=== PATIENT | male | born 1980 | race Caucasian/White ===

== ENCOUNTER 2025-01-27 12:38 | Outpatient (OUT) | payer BC, SELFPAY ==
--- OUTSIDE RECORDS SUMMARY | 2025-01-17 19:23 | XMS_ITS | Encounter Summary ---
Author Organization [facility] tem Address [id number] [address] [place] [address] Care Team Providers Care Die Equipment Operator Name Role Phone Tina Herrera APRN-[facility] Primary Care Provider Reason for Referral * Consultation (Routine) - Pending ReviewSpecialtyDiagnoses / ProceduresReferred By ContactReferred To ContactGastroenterology Diagnoses Chronic pancreatitis, unspecified pancreatitis type ([facility]-H[facility]) Halima Turner MD [address] [place] [address] Phone: tel: fax: [facility] Department of [address] [address] Phone: tel: fax: Referral IDStatusReasonStart DateExpiration DateVisits RequestedVisits [id number] Review Specialty Services Required Reason for Visit * ReasonCommentsAbdominal PainDizzinessPt reports to the ER with c/o abdominal pain and dizziness every time he stands. Pt report having hot flashes and chills as well as bloody noses. Encounter Details DateTypeDepartmentCare Team (Latest Contact Info)Kdmifwimwto13/14/2025 7:23 PM EST - 01/18/2025 1:22 AM [facility] - Emergency [address] [place] [id number] Gilson Cabrera, DO [address] [place] [address] Chronic pancreatitis, unspecified pancreatitis type (CMS-HCC) (Primary Dx); Hypokalemia Discharge Disposition: Home Social History Tobacco UseTypesPacks/DayYears UsedDateSmoking Tobacco: Never AssessedAlcohol UseStandard Drinks/WeekCommentsNot Currently0 (1 standard drink = 0.6 oz pure alcohol)PRAPARE - TransportationAnswerDate RecordedIn the past 12 months, has lack of transportation kept you from medical appointments or from getting medications?No01/19/2025In the past 12 months, has lack of transportation kept you from meetings, work, or from getting things needed for daily living?No 01/19/2025HC UtilitiesAnswerDate RecordedIn the past 12 months has the [employer], gas, oil, or water [employer] threatened to shut off services in your home?No01/19/2025Housing InstabilityAnswerDate RecordedAre you worried or concerned that in the next two months you may not have stable housing that you own, rent or stay in as a part of a household?No01/19/2025Hunger ScreeningAnswer Date RecordedWithin the past 12 months we worried whether our food would run out before we got money to buy more.Never True01/19/2025Within the past 12 months the food we bought just didn't last and we didn't have money to get more.Never True01/19/2025Sex and Gender InformationValueDate RecordedSex Assigned at Not on fileLegal OfxHtub60/13/2024 1:45 PM ESTGender IdentityNot on fileSexual OrientationNot on filedocumented as of this encounter Last Filed Vital Signs Vital SignReadingTime TakenCommentsBlood Bpfeftzh178/6601/18/2025 1:15 AM EST Hmtdm004401/18/2025 12:15 AM XNVZneknvapsaa56 ??C (98.6 ??F)01/17/2025 6:25 PM EST Respiratory Dswi802803/20/2024 12:15 AM ESTOxygen Gaymkwycqe85%01/18/2025 12:15 AM ESTInhaled Oxygen Concentration--Gedkmp305.1 kg (225 lb)01/17/2025 6:25 PM EST Scxunv592.5 cm (6' 3 )01/17/2025 6:25 PM ESTBody Mass Index28.12103/19/2024 6:25 PM ESTdocumented in this encounter Discharge Instructions * Discharge Instructions* Gilson Cabrera DO - 01/17/2025 11:51 PM EST Call to schedule an appointment with your primary care physician or hydro pneumatic tester in the next week for re-evaluation Use your medication as prescribed. Eat a bland diet. Return to the emergency department with nausea and vomiting which are not improved with medication,severe abdominal pain, blood in your vomit or stool, chest pain, shortness of breath, or any other symptoms that are concerning to you. * Attachments The following attachments cannot be sent through Care Everywhere. * Chronic pancreatitis (Kyrgyz) * High-potassium diet (Kyrgyz) documented in this encounter Medications at Time of Discharge MedicationSigDispense QuantityRefillsLast FilledStart DateEnd Date hydroCHLOROthiazide (HYDRODIURIL) 12.5 mg tablet Take 1 tablet (12.5 mg total) by mouth daily.09/01/2023 lidocaine (LIDODERM) 5 % Indications:Lumbar radiculopathyPlace 1 patch on the skin daily. Remove & Discard patch within 12 hours or as directed by 30 patch 01/17/2024 jjsxjr-htjglxwb-vswengv (CREON) 3,000-9,500- 15,000 unit capsule,delayed release(DR/EC) Take by mouth. ondansetron ODT (ZOFRAN ODT) 4 mg disintegrating tablet Dissolve 1 tablet (4 mg total) on tongue every 8 (eight) hours as needed for nausea for up to 6 doses. 6 tablet 01/17/2025 sertraline (ZOLOFT) 50 mg tablet Take 1 tablet (50 mg total) by mouth in the morning.04/10/2023 traZODone (DESYREL) 50 mg tablet Take 1 tablet (50 mg total) by mouth daily as needed. pantoprazole (PROTONIX) 20 mg EC tablet Take 1 tablet (20 mg total) by mouth in the morning./ potassium chloride (K-TAB,KLOR-CON) 10 MEQ CR tablet Take 2 tablets (20 mEq total) by mouth in the morning and 2 tablets (20 mEq total) before bedtime. Do all this for 2 days. 8 tablet cyclobenzaprine (FLEXERIL) 10 mg tablet Take 1 tablet (10 mg total) by mouth 2 (two) times a day as needed for muscle spasms. 10 tablet documented as of this encounter ED Notes * Gilson Cabrera, DO - 01/17/2025 7:37 PM EST Images from the original note were not included. [facility] - EMERGENCY Pt Name: Stanford Mccray Birthdate: 1980 Chief Complaint: Chief Complaint Patient presents with Abdominal Pain Dizziness Pt reports to the ER with c/o abdominal pain and dizziness every time he stands. Pt report having hot flashes and chills as well as bloody noses. History of Present Illness: Initial evaluation performed at 7:[address] Cabrera. Patient is a 44 y.o. male who presents to the ED for evaluation of dizziness and abdominal pain. Ptstates that his symptoms include dizziness, nose bleeds, metallic dry mouth, disoriented and abdominal pain. He includes that he is vomiting, having dark diarrhea, and looks like there is blood in his urine. Pt explains that he has issues with his pancreas. There are no other concerns at this time. Surgical HX: pancreatic cyst removal and gallbladder removal is at bedside History provided by: Patient Past Medical History: Past Medical History: Diagnosis Date Hypertension Past Surgical History: Past Surgical History: Procedure Laterality Date CYST REMOVAL cyst removal pancreas Family History: History reviewed. No pertinent family history. Social History: Social History Socioeconomic History Marital status: Single Substance and Sexual Activity Alcohol use: Not Currently Drug use: Not Currently Sexual activity: Defer Social Drivers of Health Food Insecurity: No Food Insecurity (01/17/2025) Hunger Screening Food Insecurity - Worry: Never True Food Insecurity - Inability: Never True Review of Systems: Review of Systems Physical Exam: ED Triage Vitals [01/17/25 1825] Temp Heart Rate Resp BP SpO2 37 ??C (98.6 ??F) 91 16 120/64 99 % Temp Source Heart Rate Source Patient Position BP Location FiO2 (%) Oral Pulse Ox Semi-fowlers Right arm -- Vitals: 01/17/25 1825 01/17/25 1930 BP: 120/64 131/85 Temp: 37 ??C (98.6 ??F) TempSrc: Oral Pulse: 91 76 Resp: 16 18 SpO2: 99% 96% MAP (mmHg): 98 Height: 190.5 cm (6' 3 ) Weight: 102.1 kg (225 lb) Physical Exam Vitals and nursing note reviewed. HENT: Head: Normocephalic and atraumatic. Mouth/Throat: Mouth: Mucous membranes are dry. Eyes: General: Right eye: No discharge. Left eye: No discharge. Cardiovascular: Rate and Rhythm: Normal rate and regular rhythm. Pulmonary: Effort: Pulmonary effort is normal. Breath sounds: No wheezing. Abdominal: Palpations: Abdomen is soft. Tenderness: There is no abdominal tenderness. Musculoskeletal: General: No deformity or signs of injury. Skin: General: Skin is warm and dry. Neurological: General: No focal deficit present. Mental Status: He is alert. Procedure: Procedures Re-evaluation: Re-Evaluation Medical Decision Making This is an alert, oriented, 44-year-old male patient, who presents to the emergency department withgeneralized abdominal pain, nausea, dark stools, vomiting, metallic taste. He reports a previous history of chronic pancreatitis, he states this feels similar to previous episodes of his chronic pancreatitis but states it is feels worse than his normal. He does follow with a hydro pneumatic tester. Vital signs are grossly within normal limits, he is in no acute distress, mucous membranes are dry, generalized abdominal tenderness to palpation, no rebound or guarding. Patient was treated with IV fluids, antiemetics. Rectal exam performed with nurse set up person Ly, he is Hemoccult negative on brownstool. Basic lab work obtained in the emergency department demonstrates elevated neutrophil count, slight anemia. Hypokalemia, hyponatremia. 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 Symptoms significantly improvedin the emergency department with IV fluids, antiemetics, analgesia. Potassium replaced IV and orally. Patient signed out to oncoming physician pending repeat potassium. Symptoms appear consistent with chronic pancreatitis, as patient is feeling much better, will discharge for outpatient follow-up, patient and family are in agreement with plan of care. Gilson Cabrera DO Attending Emergency Physician Amount and/or Complexity of Data Reviewed Labs: ordered. Details: Labs notable for: Decrease in hemoglobin (9.7), hematocrit (30.2), MCV (73), MCH (23.4), sodium (127), potassium (2.9), and chloride (87). An increase in RDW (16.4), neutrophils (8.4), glucose (126), ALT (48), and bilirubin (2.0). Pt has no past lab results so it is unsure what pts baseline is. Radiology: ordered. ECG/medicine tests: ordered. Risk Prescription drug management. ED Course: ED Course as of 01/18/25 0027 Fri Jan 17, 2025 2349 Patient re-evaluated, he states that he is feeling much better, he states that he would be comfortable being discharged home if potassium has improved [MB] Sat Jan 18, 2025 0024 Patient was signed out to me from previous team to follow up on repeat BNP to check potassium. Repeated BNP: Potassium and sodium both improved [NM] 0026 Patient was re-evaluated, patient stated he is feeling much better, no pain, no nausea, no vomiting. Discussed workup results with the patient. Patient would like to be discharged and he will follow up with the primary care physician. [NM] 0026 At this time the patient is appropriate for discharge home. Provided verbal instruction regarding the patient's diagnosis. We reviewed the results from their workup and answered all questions. Patient was informed to follow up with PCP within 1-2 days. I did verbally instructed the patient to return to the emergency department if needed for any reason, including worsening or lack of improvement of the condition. Patient was comfortable with the discharge plan and follow-up scheduled. Patient was discharged home with a stable condition. [NM] ED Course User Index [MB] Gilson Cabrera DO [NM] Halima Turner MD Clinical Impressions as of 01/18/25 0027 Chronic pancreatitis, unspecified pancreatitis type (CMS-HCC) Hypokalemia . ED Disposition None . Please note that portions of this note were completed with a voice recognition program. Efforts were made to edit the dictations but occasionally words are mis-transcribed. Melinda Dodge 01/17/251943 Melinda Dar 01/17/252056 Gilson Cabrera DO 01/18/25 1552 documented in this encounter Plan of Treatment NameTypePriorityAssociated DiagnosesOrder ScheduleProMedica Physicians [facility] ReferralRoutine Chronic pancreatitis, unspecified pancreatitis type (CMS-HCC) 1 Occurrences starting 01/18/2025 until 01/18/2026documented as of this encounter Procedures Procedure NamePriorityDate/TimeAssociated DiagnosisCommentsBASIC METABOLIC PANEL STAT103/19/2024 11:[address] ABDOMEN AND PELVIS W OBVFFKHM88/14/2025 9:40 PM EST TROP I, HIGH SENSITIVITY 1 PTKNHLAE63/14/2025 8:26 PM EST NURSE FECAL OBEgodoow14/14/2025 7:45 PM EST TROPONIN I, HIGH SENSITIVITY 0 VDCJDWDV33/14/2025 7:30 PM EST EXTRA TUBES BLUE IBFGguyzmq67/14/2025 7:30 PM EST TROPONIN I, HIGH SENSITIVITY 0 GREBJWRT28/14/2025 7:30 PM EST EXTRA OWVKCIcrlebx02/14/2025 7:30 PM EST CBC WITH AUTO NYYAMBYWXBLQWRLS06/14/2025 7:30 PM EST LIPASESTAT Add-on01/17/2025 7:30 PM EST COMPREHENSIVE METABOLIC MNQUYNOTZ75/14/2025 7:30 PM EST ECG 12-VFCJPCDG43/14/2025 6:23 PM EST documented in this encounter Results * (ABNORMAL) Basic Metabolic Panel (01/17/2025 11:47 PM EST)ComponentValueRef RangeTest MethodAnalysis TimePerformed AtPathologist HiwhxixhxUOEUBZ488(L)134 - 146 mmol/L103/20/2024 12:07 AM ESTTHE [facility] POTASSIUM3.53.5 - 5.0 mmol/L103/20/2024 12:07 AM [facility]ODSCHLORIDE97(L)98 - 109 mmol/L103/20/2024 12:07 AM ESTTHE SURGICAL HOSPITAL AT SOUTHWOODSCARBON FIDSMJF3523 - 32 mmol/L103/20/2024 12:07 AM EST [facility]SANION GAP75 - 15 mmol/L103/20/2024 12:07 AM [facility]SBLOOD UREA EZLCPQAB019 - 23 mg/dL 01/18/2025 12:07 AM [facility]SCREATININE1.050.70 - 1.20 mg/dL01/18/2025 12:07 AM [facility]SComment: METHOD TRACEABLE TO IDMS TZNJPFUFPFCAMBI021(H)65 - 99 mg/dL01/18/2025 12:07 AM [facility]WOODSCALCIUM7.8(L)8.5 - 10.5 mg/dL01/18/2025 12:07 AM [facility]ODSEGFR Non-Race Ueqhyowyu22>=60 ml/min/1.73sq.m103/20/2024 12:07 AM [facility] Comment: eGFR not reported due to non-numeric value for Creatinine. Reported eGFR is based on the CKD-EPI 2020 equation that does not use a race coefficient. Specimen (Source)Anatomical Location / LateralityCollection Method / Volume Collection TimeReceived TimeBloodVenous blood / UnknownVenipuncture / Unknown 01/17/2025 11:47 PM EST01/17/2025 11:52 PM EST Narrative Authorizing ProviderResult TypeResult StatusGilson Ma Loragerson DE BLOOD ORDERABLESFinal ResultPerforming OrganizationAddressCity/State/ZIP CodePhone Number [facility] [address] [place] [address], [place] * CT abdomen and pelvis with contrast (01/17/2025 9:40 PM EST)Anatomical Region LateralityModalityBody, Abdomen, Body CoveraN/AComputed TomographySpecimen (Source)Anatomical Location / LateralityCollection Method / VolumeCollection TimeReceived Time01/17/2025 10:17 PM EST Narrative 01/17/2025 10:23 PM EST ABDOMEN AND PELVIS CT WITH CONTRAST HISTORY: Abdominal pain, nausea and vomiting COMPARISON: None. TECHNIQUE: CT abdomen and pelvis was performed. ??Axial images were obtained following the uneventful administration of 100 cc Omnipaque 300 nonionic intravenous contrast. Coronal and sagittal reformatted images were obtained and reviewed. Automated exposure control was utilized. FINDINGS: Atelectatic changes in lung bases without significant airspace consolidation or pleural fluid collection. Visible heart is unremarkable. Liver demonstrates no solid mass or intrahepatic biliary ductal dilatation. Gallbladder surgically absent. Coarse calcifications in the pancreas suggestive of chronic pancreatitis. No definite pancreatic mass or ductal dilatation. Unremarkable adrenal glands. Enlarged spleen measures 15.8 cm craniocaudal. Symmetric renal enhancement. No hydronephrosis or perinephric fluid collection. Unremarkable urinary bladder and prostate. There is irregular fluid collection along the greater curvature of the stomach between it and the pancreatic tail. It measures approximately 4.2 x 2.2 cm. No bowel obstruction or significant bowel inflammation. Normal appendix. No free air or fluid. No mesenteric lymphadenopathy. Normal caliber aorta and iliac arteries with no significant atherosclerotic disease. Right-sided IVC. Patent portal and mesenteric veins. There is chronic occlusion of the splenic vein with compensatory dilatation of venous structures between the splenic hilum and superior mesenteric vein. No significant enlargement of retroperitoneal or pelvic lymph nodes. No acute osseous abnormality. IMPRESSION: * ?? No definitive acute pathologic process. 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 * ??Splenomegaly All CT scans at this facility use dose modulation, iterative reconstruction, and/or weight based dosing when appropriate to reduce radiation dose to as low as reasonably achievable. Finalized by Afshin Mahmood MD on 01/17/2025 10:23 PM Procedure Note Afshin Mahmood MD - 01/17/[address] WITH CONTRAST HISTORY: Abdominal pain, nausea and vomiting COMPARISON: None. TECHNIQUE: CT abdomen and pelvis was performed. Axial images wereobtained following the uneventful administration of 100 cc Omnipaque 300nonionic intravenous contrast. Coronal and sagittal reformatted imageswere obtained and reviewed. Automated exposure control was utilized. FINDINGS: Atelectatic changes in lung bases without significant airspaceconsolidation or pleural fluid collection. Visible heart isunremarkable. Liver demonstrates no solid mass or intrahepatic biliary ductaldilatation. Gallbladder surgically absent. Coarse calcifications in thepancreas suggestive of chronic pancreatitis. No definite pancreatic massor ductal dilatation. Unremarkable adrenal glands. Enlarged spleenmeasures 15.8 cm craniocaudal. Symmetric renal enhancement. No hydronephrosis or perinephric fluidcollection. Unremarkable urinary bladder and prostate. There is irregular fluid collection along the greater curvature of thestomach between it and the pancreatic tail. It measures approximately 4.2x 2.2 cm. No bowel obstruction or significant bowel inflammation. Normalappendix. No free air or fluid. No mesenteric lymphadenopathy. Normal caliber aorta and iliac arteries with no significantatherosclerotic disease. Right-sided IVC. Patent portal and mesentericveins. There is chronic occlusion of the splenic vein with compensatorydilatation of venous structures between the splenic hilum and superiormesenteric vein. No significant enlargement of retroperitoneal or pelvic lymph nodes. Noacute osseous abnormality. IMPRESSION: * No definitive acute pathologic process. 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 * Splenomegaly All CT scans at this facility use dose modulation, iterativereconstruction, and/or weight based dosing when appropriate to reduceradiation dose to as low as reasonably achievable. Finalized by Afshin Mahmood MD on 01/17/2025 10:23 PM Authorizing ProviderResult TypeResult StatusMaxmarivel Cabrera DOIMG CT ORDERABLESFinal Result * Troponin I, High Sensitivity 1 Hour (01/17/2025 8:26 PM EST)ComponentValueRef RangeTest MethodAnalysis TimePerformed AtPathologist SignatureTROPONIN I, HIGH SENSITIVITY3<21 ng/L103/19/2024 9:11 PM [facility] Specimen (Source)Anatomical Location / LateralityCollection Method / Volume Collection TimeReceived TimeBloodVenous blood / UnknownVenipuncture / Unknown 01/17/2025 8:26 PM EST01/17/2025 8:29 PM EST Narrative Authorizing ProviderResult TypeResult StatusMaxmarivel Cabrera DOLAB BLOOD ORDERABLESFinal ResultPerforming OrganizationAddressCity/[facility] CodePhone Number [facility] [address] [place] [address], [place] * Nursing fecal occult blood (OBN) (01/17/2025 7:45 PM EST)ComponentValueRef RangeTest MethodAnalysis TimePerformed AtPathologist SignaturePOC Fecal Occult BloodNegativeNegative, Invalid Pklxua2101/18/2025 4:35 AM [facility]pecl[facility] (Source)Anatomical Location / LateralityCollection Method / VolumeCollection TimeReceived TimeStoolFeces / Euentxq7401/17/2025 7:45 PM EST01/18/2025 4:33 AM EST Narrative Authorizing ProviderResult TypeResult StatusMaxmarivel Cabrera DOPOINT OF CARE TEST ORDERABLESFinal ResultPerforming OrganizationAddressCity/State/[facility] Code Phone Number [address] [place] [address], [place] * Light Blue Top (01/17/2025 7:30 PM EST)ComponentValueRef RangeTest Method Analysis TimePerformed AtPathologist SignatureExtra TubeAuto Resulted 01/17/2025 9:01 PM ESTACCESS HOSPITAL DAYTONpecimen (Source) Anatomical Location / LateralityCollection Method / VolumeCollection Time Received TimeBloodVenous blood / Oyezede8201/17/2025 7:30 PM EST01/17/2025 7:56 PM EST Narrative Authorizing ProviderResult TypeResult StatusMaxLehigh Valley Hospital - Poconoer [facility]ITALAB BLOOD ORDERABLESFinal ResultPerforming OrganizationAddressty/State/ZIP CodePhone Number [address] [address], * (ABNORMAL) Lipase (01/17/2025 7:30 PM EST)ComponentValueRef RangeTest Method Analysis TimePerformed AtPathologist DnzatsuzeXNLATJ00(H)17 - 40 U/L103/19/2024 8:39 PM ESTMartin Memorial Hospital (Source)Anatomical Location / LateralityCollection Method / VolumeCollection TimeReceived Time BloodVenous blood / UnknownVenipuncture / Aoekmev8101/17/2025 7:30 PM EST 01/17/2025 7:34 PM EST Narrative Authorizing ProviderResult TypeResult StatusMaxJefferson Health BLOOD ORDERABLESFinal ResultPerforming OrganizationAddressCity/State/ZIP CodePhone Number [address] [address], [place] * Troponin I, High Sensitivity 0 Hour (01/17/2025 7:30 PM EST)ComponentValueRef RangeTest MethodAnalysis TimePerformed AtPathologist SignatureTROPONIN I, HIGH SENSITIVITY4<21 ng/L103/19/2024 8:07 PM [facility] (Source)Anatomical Location / LateralityCollection Method / VolumeCollection TimeReceived TimeBloodVenous blood / UnknownVenipuncture / Ctnobbv2401/17/2025 7:30 PM EST01/17/2025 7:34 PM EST Narrative Authorizing ProviderResult TypeResult StatusMaxJefferson Health BLOOD ORDERABLESFinal ResultPerforming OrganizationAddressty/State/ZIP CodePhone Number [address] [address], [place] * (ABNORMAL) Comprehensive metabolic panel (01/17/2025 7:30 PM EST)Component ValueRef RangeTest MethodAnalysis TimePerformed AtPathologist SignatureSODIUM 127(L)134 - 146 mmol/L103/19/2024 8:02 PM ESTTHE SURGICAL HOSPITAL AT SOUTHWOODSPOTASSIUM2.9(L)3.5 - 5.0 mmol/L103/19/2024 8:02 PM [facility]ODSCHLORIDE87(L)98 - 109 mmol/L103/19/2024 8:02 PM [facility] S[facility]WOODSCARBON QQPEAGH8656 - 32 mmol/L103/19/2024 8:02 PM EST [facility]ODSANION MYL563 - 15 mmol/L103/19/2024 8:02 PM [facility]WOODSBLOOD UREA EMFUGSTC77 - 23 mg/dL 01/17/2025 8:02 PM [facility]ODSCREATININE1.180.70 - 1.20 mg/dL01/17/2025 8:02 PM [facility]SComment: METHOD TRACEABLE TO IDMS NDDRHJKTFGHXRFW434(H)65 - 99 mg/dL01/17/2025 8:02 PM [facility]WOODSCALCIUM8.78.5 - 10.5 mg/dL01/17/2025 8:02 PM [facility]WOODSTOTAL PROTEIN7.96.0 - 8.0 g/dL 01/17/2025 8:02 PM [facility]ODSALBUMIN3.93.2 - 5.3 g/dL01/17/2025 8:02 PM [facility]SALKALINE KVGCLBZPSZP8117 - 130 U/L103/19/2024 8:02 PM [facility]ODSAST37<=41 U/L103/19/2024 8:02 PM [facility] ALT48(H)<=40 U/L103/19/2024 8:02 PM [facility] BILIRUBIN,TOTAL2.0(H)0.3 - 1.2 mg/dL01/17/2025 8:02 PM [facility]ODSEGFR Non-Race Ipkxotejs30>=60 ml/min/1.73sq.m103/19/2024 8:02 PM [facility]SComment: eGFR not reported due to non-numeric value for Creatinine. Reported eGFR is based on the CKD-EPI 2020 equation that does not use a race coefficient. Specimen (Source)Anatomical Location / LateralityCollection Method / Volume Collection TimeReceived TimeBloodVenous blood / UnknownVenipuncture / Unknown 01/17/2025 7:30 PM EST01/17/2025 7:34 PM EST Narrative Authorizing ProviderResult TypeResult StatusMaxmarivel Cabrera [facility] BLOOD ORDERABLESFinal ResultPerforming OrganizationAddressCity/State/ZIP CodePhone Number [facility] [address] [place] [address], * (ABNORMAL) CBC auto differential (01/17/2025 7:30 PM EST)ComponentValueRef RangeTest MethodAnalysis TimePerformed AtPathologist GyhbkublvCUA09.94 - 11 X10^9/L103/19/2024 8:33 PM [facility]BC Count4.15 4.1 - 5.7 X10^12/L103/19/2024 8:33 PM [facility] Hemoglobin9.7(L)13 - 17 g/dL01/17/2025 8:33 PM [facility]ematocrit30.2(L)39 - 50 %01/17/2025 8:33 PM [facility]CV73(L)80 - 100 fL01/17/2025 8:33 PM [facility]CH23.4(L)27 - 34 pg01/17/2025 8:33 PM [facility]CHC32.232 - 36 g/dL01/17/2025 8:33 PM [facility]DW16.4(H)11.5 - 15 %01/17/2025 8:33 PM [facility]Platelet [id number] - 450 X10^9/L103/19/2024 8:33 PM EST [facility]MPV8.27 - 12 fL01/17/2025 8:33 PM EST [facility]Neutrophils %77%01/17/2025 8:33 PM EST [facility]:This is an appended report. These results have been appended to a previously preliminary verified report. Lymphocytes %14%01/17/2025 8:33 PM [facility] Comment:This is an appended report. These results have been appended to a previously preliminary verified report.Monocytes %7%01/17/2025 8:33 PM EST [facility]:This is an appended report. These results have been appended to a previously preliminary verified report. Eosinophils %1%01/17/2025 8:33 PM [facility] Comment:This is an appended report. These results have been appended to a previously preliminary verified report.Basophils %1%01/17/2025 8:[address] [facility]This is an appended report. These results have been appended to a previously preliminary verified report. Neutrophils Absolute (M)8.4(H)1.5 - 6.6 X10^9/L103/19/2024 8:33 PM [facility]:This is an appended report. These results have been appended to a previously preliminary verified report.Lymphocytes Absolute1.51.0 - 3.5 X10^9/L103/19/2024 8:33 PM [facility]:This is an appended report. These results have been appended to a previously preliminary verified report.Monocytes Absolute0.80.0 - 0.9 X10^9/L103/19/2024 8:33 PM [facility]:This is an appended report. These results have been appended to a previously preliminary verified report.Eosinophils Absolute0.10.0 - 0.4 X10^9/L103/19/2024 8:33 PM [facility]:This is an appended report. These results have been appended to a previously preliminary verified report.Basophils Absolute0.10.0 - 0.2 X10^9/L103/19/2024 8:33 PM [facility]:This is an appended report. These results have been appended to a previously preliminary verified report.Toxic Granulation1+01/17/2025 8:33 PM [facility]: This is an appended report. These results have been appended to a previously preliminary verified report.Vacuolated Neutrophils1+01/17/2025 8:33 PM EST [facility]:This is an appended report. These results have been appended to a previously preliminary verified report. Anisocytosis2+01/17/2025 8:33 PM [facility] Comment:This is an appended report. These results have been appended to a previously preliminary verified report.Polychromasia1+01/17/2025 8:33 PM EST [facility]:This is an appended report. These results have been appended to a previously preliminary verified report.RBC EidizgezmyEighqmxw23/14/2025 8:33 PM [facility] Comment:This is an appended report. These results have been appended to a previously preliminary verified report.Differential TypeMANUAL DIFFERENTIAL 01/17/2025 8:33 PM [facility]:This is an appended report. These results have been appended to a previously preliminary verified report.Specimen (Source)Anatomical Location / LateralityCollection Method / VolumeCollection TimeReceived TimeBloodVenous blood / Unknown Venipuncture / Dqzxwcs9101/17/2025 7:30 PM EST01/17/2025 7:34 PM EST Narrative Authorizing ProviderResult TypeResult StatusMaxcannon [facility] J [facility] Centerwalder DOLAB BLOOD ORDERABLESFinal ResultPerforming OrganizationAddressCity/State/ZIP CodePhone Number [facility] [address] [place] [address], * ECG 12 lead (01/17/2025 6:23 PM EST)Specimen (Source)Anatomical Location / LateralityCollection Method / VolumeCollection TimeReceived Time01/17/2025 6:23 PM EST Narrative TRACEMASTERVUE - 01/17/2025 8:50 PM EST Authorizing ProviderResult TypeResult StatusConcordmarivel Paulinogerson DOECG ORDERABLESFinal ResultPerforming OrganizationAddressCity/State/ZIP CodePhone Number TRACEMASTERVUE documented in this encounter Visit Diagnoses Diagnosis Chronic pancreatitis, unspecified pancreatitis type ([facility])- Primary Hypokalemia Hypopotassemia documented in this encounter Administered Medications Medication OrderMAR ActionAction DateDoseRateSite fentaNYL (SUBLIMAZE) injection 50 mcg 50 mcg, intravenous, Once, On Mon01/17/25 at 1946, For 1 dose, For IVP, must be given slow IV Pushover 1 to 2 minutes. Look-alike/sound-alike medication - verify indication for use. Given01/17/2025 7:54 PM EST50 mcg fentaNYL (SUBLIMAZE) injection 50 mcg 50 mcg, intravenous, Once, On Mon01/17/25 at 2233, For 1 dose, For IVP, must be given slow IV Pushover 1 to 2 minutes. Look-alike/sound-alike medication - verify indication for use. Given01/17/2025 10:44 PM EST50 mcg ibuprofen (MOTRIN) tablet 600 mg 600 mg, oral, Once, On Mon01/18/25 at 0116, For 1 dose, Look-alike/sound-alike medication - verifyindication for use. Take/Give with food or milk. Given01/18/2025 1:19 AM [id number] mg iohexoL (OMNIPAQUE) 300 mg iodine/mL 100 mL 100 mL, intravenous, Once in imaging, contrast, Starting on Mon01/17/25 at 2114, For 1 dose, VESICANT (RED) Given01/17/2025 9:41 PM [id number] mL ondansetron (PF) (ZOFRAN) injection 4 mg 4 mg, intravenous, Once, On Mon01/17/25 at 1946, For 1 dose, Intravenous administration preferred to be given over 2-5 minutes. Given01/17/2025 7:53 PM EST4 mg potassium chloride (KLOR-CON M 20) CR tablet 40 mEq 40 mEq, oral, Once, On Mon01/17/25 at 2055, For 1 dose, Do not crush or chew. Given01/17/2025 9:10 PM EST40 mEq potassium chloride IVPB 10 mEq/100 mL in water (0.1 mEq/mL premix) 10 mEq, intravenous, at 100 mL/hr, Administer over 60 Minutes, Every 1 hour, First dose on Mon01/17/25 at 2100, For 2 doses, VESICANT (YELLOW) Infuse each 10 mEq over a minimum of 1 hour. New Bag01/17/2025 10:39 PM EST10 hBa596 mL/wpWcwyqvbuk36/14/2025 9:35 PM VZJ069 mL/hrNew Bag01/17/2025 9:13 PM EST10 oNb872 mL/hr sodium chloride 0.9 % bolus 1,000 mL, intravenous, at 1,000 mL/hr, Administer over 1 Hours, Once, On Mon01/17/25 at 1941, For 1 dose New Bag01/17/2025 7:52 PM EST1,000 [id number] mL/hr sodium chloride 0.9 % flush 10 mL 10 mL, intravenous, As needed, line care, Starting on Mon01/17/25 at 2114 Given01/17/2025 9:41 PM EST10 mL sodium chloride 0.9 % radiology injection 80 mL, intravenous, Once in imaging, pre/post contrast, Starting on Mon01/17/25 at 2114, For 1 dose Given01/17/2025 9:40 PM EST80 mLdocumented in this encounter Active and Recently Administered Medications Times are shown in EST.Medication Order// fentaNYL (SUBLIMAZE) injection 50 mcg (COMPLETED) 50 mcg, intravenous, Once, On Mon01/17/25 at 1946, For 1 dose, For IVP, must be given slow IV Pushover 1 to 2 minutes. Look-alike/sound-alike medication - verify indication for use. * 1953 (Given - Provider: Ly Vidales RN) fentaNYL (SUBLIMAZE) injection 50 mcg (COMPLETED) 50 mcg, intravenous, Once, On Mon01/17/25 at 2233, For 1 dose, For IVP, must be given slow IV Pushover 1 to 2 minutes. Look-alike/sound-alike medication - verify indication for use. * 2243 (Given - Provider: Ly Vidales RN) ibuprofen (MOTRIN) tablet 600 mg (COMPLETED) 600 mg, oral, Once, On Mon01/18/25 at 0116, For 1 dose, Look-alike/sound-alike medication - verifyindication for use. Take/Give with food or milk. * 118 (Given - Provider: Ly Vidales, LOU) ondansetron (PF) (ZOFRAN) injection 4 mg (COMPLETED) 4 mg, intravenous, Once, On Mon01/17/25 at 1946, For 1 dose, Intravenous administration preferred to be given over 2-5 minutes. * 1952 (Given - Provider: Ly Vidales, LOU) potassium chloride (KLOR-CON M 20) CR tablet 40 mEq (COMPLETED) 40 mEq, oral, Once, On Mon01/17/25 at 2054, For 1 dose, Do not crush or chew. * 2109 (Given - Provider: Ly Vidales, LOU) potassium chloride IVPB 10 mEq/100 mL in water (0.1 mEq/mL premix) (COMPLETED) 10 mEq, intravenous, at 100 mL/hr, Administer over 60 Minutes, Every 1 hour, First dose on Mon01/17/25 at 2100, For 2 doses, VESICANT (YELLOW) Infuse each 10 mEq over a minimum of 1 hour. * 2112 (New Bag - Provider: Ly Vidales RN) * 2121 (Paused - Provider: Ly Vidales RN) * 2134 (Restarted - Provider: Ly Vidales, LOU) * 2224 (Stop Bag - Provider: Ly Vidales RN) * 223 (New Bag - Provider: Ly Vidales, LOU) * 233 (Stop Bag - Provider: Ly Vidales, LOU) sodium chloride 0.9 % bolus (COMPLETED) 1,000 mL, intravenous, at 1,000 mL/hr, Administer over 1 Hours, Once, On Mon01/17/25 at 194, For 1 dose * 1951 (New Bag - Provider: Ly Vidales, LOU) * 2051 (Stop Bag - Provider: Ly Vidales, LOU) Medication Order// iohexoL (OMNIPAQUE) 300 mg iodine/mL 100 mL (COMPLETED) 100 mL, intravenous, Once in imaging, contrast, Starting on Mon01/17/25 at 2114, For 1 dose, VESICANT (RED) * 214 (Given - Provider: JENNA Mercer - Comment: [id number]) sodium chloride 0.9 % flush 10 mL 10 mL, intravenous, As needed, line care, Starting on Mon01/17/25 at 2114 * 214 (Given - Provider: JENNA Mercer) sodium chloride 0.9 % radiology injection (COMPLETED) 80 mL, intravenous, Once in imaging, pre/post contrast, Starting on Mon01/17/25 at 2114, For 1 dose * 214 (Given - Provider: JENNA Mercer) documented in this encounter Care Teams Team MemberRelationshipSpecialtyStart DateEnd Date Tina Herrera, VICE PRESIDENT OF CUSTOMER SERVICE-[employer]URING COORDINATOR [address] [facility], [place] [address] PCP - GeneralFamily Qgzugscp74/13/24documented as of this encounter
--- OUTSIDE RECORDS SUMMARY | 2025-01-19 12:57 | XMS_ITS | Encounter Summary ---
Author Organization [facility] tem Address [id number] [address] [place] [address] Care Team Providers Care Software Packager Name Role Phone Tina Herrera APRN-GERMINATION TESTING MANAGER Primary Care Provider Reason for Visit * ReasonCommentsDizzinessPatient c/o dizziness for the last few days per patient. Patient also states he was dx with pancreatitis and feels that there is more going on. * Auth/CertSpecialtyDiagnoses / ProceduresReferred By ContactReferred To Contact Diagnoses Dizziness Symptomatic anemia [facility] - Emergency [address] [place] [address] Phone: tel: fax: Referral IDStatusReasonStart DateExpiration DateVisits RequestedVisits [id number] Encounter Details DateTypeDepartmentCare Team (Latest Contact Info)Apskuhlnqie03/16/2025 12:57 PM EST - 01/19/2025 10:02 PM Venita [facility] - [facility] [address] [place] [id number] Julian Dominguez MD [address] [place] [address] Symptomatic anemia (Primary Dx) Discharge Disposition: Another Hospital Social History Tobacco UseTypesPacks/DayYears UsedDateSmoking Tobacco: FormerCigarettes Smokeless Tobacco: Current Tobacco Cessation:Ready to Q uit: Not Asked; Counseling Given: Not Answered Alcohol UseStandard Drinks/WeekCommentsNot Currently0 (1 standard drink = 0.6 oz pure alcohol)PRAPARE - TransportationAnswerDate RecordedIn the past 12 months, has lack of transportation kept you from medical appointments or from getting medications?No01/19/2025In the past 12 months, has lack of transportation kept you from meetings, work, or from getting things needed for daily living?No 01/19/2025HC UtilitiesAnswerDate RecordedIn the past 12 months has the [employer], [employer], [employer], or water [employer] threatened to shut off services in your home?No01/19/2025Housing InstabilityAnswerDate RecordedAre you worried or concerned that in the next two months you may not have stable housing that you own, rent or stay in as a part of a household?No01/19/2025Hunger ScreeningAnswer Date RecordedWithin the past 12 months we worried whether our food would run out before we got money to buy more.Never True01/20/2025Within the past 12 months the food we bought just didn't last and we didn't have money to get more.Never True01/20/2025Sex and Gender InformationValueDate RecordedSex Assigned at Not on fileLegal HfbNnxe88/13/2024 1:45 PM ESTGender IdentityNot on fileSexual OrientationNot on filedocumented as of this encounter Last Filed Vital Signs Vital SignReadingTime TakenCommentsBlood Wloefiqt69/5301/19/2025 9:45 PM EST Udztc409701/19/2025 9:45 PM OXNErtzgwzhpev21.5 ??C (99.5 ??F)01/19/2025 7:19 PM ESTRespiratory Tgbu3745 9:45 PM ESTOxygen Vvkokfbmrg89%01/19/2025 9:45 PM ESTInhaled Oxygen Concentration--Laiayi288.1 kg (225 lb)01/19/2025 1:00 PM ESTHeight--Body Mass Index28. 6:25 PM ESTdocumented in this encounter Medications at Time of Discharge MedicationSigDispense QuantityRefillsLast FilledStart DateEnd Date hydroCHLOROthiazide (HYDRODIURIL) 12.5 mg tablet Take 1 tablet (12.5 mg total) by mouth daily.09/01/2023 lidocaine (LIDODERM) 5 % Indications:Lumbar radiculopathyPlace 1 patch on the skin daily. Remove & Discard patch within 12 hours or as directed by MD 30 patch 01/17/2024 fhewce-mauscsnj-rwygfxg (CREON) 3,000-9,500- 15,000 unit capsule,delayed release(DR/EC) Take [...] (20 mg total) by mouth in the morning. potassium chloride (K-TAB,KLOR-CON) 10 MEQ CR tablet Take 2 tablets (20 mEq total) by mouth in the morning and 2 tablets (20 mEq total) before bedtime. Do all this for 2 days. 8 tablet 5103/21/2024documented as of this encounter ED Notes * Julian Dominguez MD - 01/19/2025 1:05 PM ESTAssociated Order(s): ED NIHSS And Thrombolytic MD Screening Images from the original note were not included. [facility] Pt Name: Stanford Mccray Birthdate: 1980 Chief Complaint: Chief Complaint Patient presents with Dizziness Patient c/o dizziness for the last few days per patient. Patient also states he was dx with pancreatitis and feels that there is more going on. History of Present Illness: Presents for evaluation of dizziness. These symptoms been going on for a few days. He was recently seen for the same symptoms was worked up found no acute process he returns because of the dizziness is not any better. He does not report room spinning that is worse with movement. Weakness numbness or paresthesias. History provided by: Patient Past Medical History: Past Medical History: Diagnosis Date Hypertension Past Surgical History: Past Surgical History: Procedure Laterality Date CYST REMOVAL cyst removal pancreas Family History: History reviewed. No pertinent family history. Social History: Social History Socioeconomic History Marital status: Single Tobacco Use Smoking status: Former Types: Cigarettes Smokeless tobacco: Current Substance and Sexual Activity Alcohol use: Not Currently Drug use: Not Currently Sexual activity: Defer Social Drivers of Health Food Insecurity: No Food Insecurity (01/19/2025) Hunger Screening Food Insecurity - Worry: Never True Food Insecurity - Inability: Never True Review of Systems: Review of Systems Physical Exam: ED Triage Vitals [01/19/25 1300] Temp Heart Rate Resp BP SpO2 -- 76 18 132/87 97 % Temp src Heart Rate Source Patient Position BP Location FiO2 (%) -- Pulse Ox Lying supine Left arm -- Vitals: 01/19/25 1300 BP: 132/87 Pulse: 76 Resp: 18 SpO2: 97% Weight: 102.1 kg (225 lb) Physical Exam Vitals and nursing note reviewed. Constitutional: General: He is not in acute distress. Appearance: Normal appearance. He is not ill-appearing, toxic-appearing or diaphoretic. HENT: Head: Normocephalic and atraumatic. Nose: Rhinorrhea present. Eyes: Extraocular Movements: Extraocular movements intact. Pupils: Pupils are equal, round, and reactive to light. Cardiovascular: Rate and Rhythm: Normal rate and regular rhythm. Pulses: Normal pulses. Heart sounds: Normal heart sounds. No murmur heard. No friction rub. No gallop. Pulmonary: Effort: Pulmonary effort is normal. No respiratory distress. Breath sounds: Normal breath sounds. No stridor. No wheezing, rhonchi or rales. Abdominal: General: Abdomen is flat. There is no distension. Palpations: Abdomen is soft. Tenderness: There is no guarding or rebound. Hernia: No hernia is present. Musculoskeletal: Cervical back: Normal range of motion and neck supple. No tenderness. Lymphadenopathy: Cervical: No cervical adenopathy. Skin: Capillary Refill: Capillary refill takes more than 3 seconds. Neurological: General: No focal deficit present. Mental Status: He is alert and oriented to person, place, and time. Cranial Nerves: No cranial nerve deficit. Sensory: No sensory deficit. Motor: No weakness. Coordination: Coordination normal. Gait: Gait normal. Deep Tendon Reflexes: Reflexes normal. Procedure: ED NIHSS And Thrombolytic MD Screening Performed by: Julian Dominguez MD Authorized by: Julian Dominguez MD Time NIHSS was performed: 01/16/2025 2:01 PM Interval: Baseline LOC: 0 - Alert LOC Questions: 0 - Answers both correctly LOC Commands: 0 - Performs both tasks correctly Best Gaze: 0 - Normal horizontal movements Visual Jean: 0 - No visual field defect Facial Movements: 0 - Normal Motor Function Right Arm: 0 - No drift right arm holds for 10 seconds Motor Function Left Arm: 0 - No drift left arm holds for 10 seconds Motor Function Right Le - No drift right leg holds for full 5 seconds Motor Function Left Le - No drift left leg, holds for full 5 seconds Limb Ataxia: 0 - No limb ataxia Sensory: 0 - No sensory loss Language: 0 - Language normal Articulation: 0 - Articulation normal Extinction or Inattention: 0 - Extinction or inattention absent TOTAL NIHSS SCORE: 0 Do presenting disabilities interfere with lifestyle(i.e. work, hobbies, entertainment etc.?: Yes Absolute Contraindications: Onset greater than 4.5 hours - Patient not eligible for Thrombolytic. Decision for Thrombolytics: Thrombolytics will not be given based on the history and assessment of the patient. Re-evaluation: Re-Evaluation Medical Decision Making On my exam the patient appears uncomfortable but is nontoxic well-appearing in no acute distress. He has no neurologic deficits. He does have a delayed capillary refill. Think he given he has nystagmus with horizontal gaze bilaterally as well as signs of a left otitis media with an erythematous dull bulging tympanic membrane. I reviewed his testing from his previous visit. I am going to repeat serology my main concern is to make sure that his hemoglobin is not dropping. I am going to give him fluids Antivert medications for his symptoms and CT scan of the brain. If his labs are stable tests are normal and he improves with treatment I do think he would be appropriate for discharge at the time. But will see how he does My independent interpretation of the EKGs shows normal sinus rhythm with left axis deviation left anterior fascicular block no acute signs of infarction ischemia or arrhythmia this is a nonspecific EKG and unchanged from previous. And serology the patient's hemoglobin is lower than last time at 8.8. He also is hyponatremic and hypokalemic. Is chronic looking in his old labs. Most of with the patient's describes this consistent with vertigo. Some of it is also consistent with orthostasis. I am concerned that his symptoms may be related to worsening anemia and the patient would probably benefit from admission and evaluation by GI. The patient has declined a rectal exam My independent interpretation of the CT scan of the brain shows no acute process. Radiologist confirms no acute process on imaging. Discussed the case with the hospitalist who agrees to accept the patient for observation status forhis anemia Amount and/or Complexity of Data Reviewed Labs: ordered. Radiology: ordered. ECG/medicine tests: ordered. Risk Prescription drug management. ED Course: Clinical Impressions as of 01/19/25 1448 Symptomatic anemia . ED Disposition None . Please note that portions of this note were completed with a voice recognition program. Efforts were made to edit the dictations but occasionally words are mis-transcribed. Julian Doimnguez MD 01/19/25 1307 Julian Dominguez MD 01/19/25 1308 Julian Dominguez MD 01/19/25 1357 Julian Dominguez MD 01/19/25 1401 Julian Dominguez MD 01/19/25 1409 Julian Dominguez MD 01/19/25 1449 Julian Dominguez MD 01/19/25 1513 documented in this encounter Plan of Treatment Not on file documented as of this encounter Procedures Procedure NamePriorityDate/TimeAssociated DiagnosisCommentsPOCT NURSING URINE MACROSCOPIC SDNkldhig46/16/2025 3:31 PM EST BB ARC IZTJGYxlsxkf33/16/2025 2:15 PM EST TROP I, HIGH SENSITIVITY 1 HEANGXBT87/16/2025 2:15 PM EST TYPE AND XZZWSTQQDX86/16/2025 2:[address] BRAIN WO PUFCDGHG62/16/2025 2:01 PM EST ER EXTRA URINE ZEWCBLRHYA90/16/2025 1:17 PM EST ER EXTRA URINE BSLCWBEFXWY89/16/2025 1:17 PM EST ER EXTRA LPQZIGXXA65/16/2025 1:17 PM EST SARS/FLU A+B/RSV BY NAAT/MOLECULAR (M4RT COLLECTION TUBE)STAT103/21/2024 1:17 PM EST TROPONIN I, HIGH SENSITIVITY 0 NBGYIRQB11/16/2025 1:16 PM EST EXTRA TUBES BLUE QTHAyutkxn30/16/2025 1:16 PM EST TROPONIN I, HIGH SENSITIVITY 0 EQOGUEZZ79/16/2025 1:16 PM EST REPEATED BATKSOlmhsvh61/16/2025 1:16 PM EST EXTRA YOJHMFngosax89/16/2025 1:16 PM EST CBC WITH AUTO IYPSXVLBZYQIOBUU79/16/2025 1:16 PM EST IRON AND TIBCAdd-On01/19/2025 1:16 PM EST PSOVTDBNLE62/16/2025 1:16 PM EST FERRITINAdd-On01/19/2025 1:16 PM EST LIVER NUXNJSEUC82/16/2025 1:16 PM EST BASIC METABOLIC HUUGUIYBY65/16/2025 1:16 PM EST ED PHYSICIAN NIHSS AND THROMBOLYTIC SBVIVVVWVhbgspj20/16/2025 1:05 PM EST ECG 12-DYNHIUVB31/16/2025 1:04 PM ESTdocumented in this encounter Results * (ABNORMAL) POCT Nursing Urine Macroscopic UA (01/19/2025 3:31 PM EST)Component ValueRef RangeTest MethodAnalysis TimePerformed AtPathologist [facility] Urine Specific Gravity1.0151.010, 1.015, 1.020, 1.9947401/19/2025 3:33 PM EST [facility] Urine Leukocyte EsteraseSmall(A) Ebepkvlb42/16/2025 3:33 PM ESTPROM[facility]ILAKE[facility] Urine FsxyebgHgfucxkiNisvzptg65/16/2025 3:33 PM [facility] Urine pH6.05.0, 6.0, 6.5, 7.0, 7.5, 8.0, 8.5, 5. 3:33 PM ESTPR[facility]ENECA [facility] Urine Wmakghh11 mg/dL(A)Negative 01/19/2025 3:33 PM ESTPROM[facility]ILAKEWO[facility] Urine Glucose OkjhenzuXohwbhod80/16/2025 3:33 PM [facility]PR[facility] Urine GojpijcMmkrfotfLrlgoexf50/16/2025 3:33 PM [facility]PR[facility] Urine Urobilinogen>=8.0 E.U./dL01/19/2025 3:33 PM [facility]PR[facility] Urine BilirubinSmall(A)Snrocjdl33/16/2025 3:33 PM ESTPROM[facility]ILAKEWO[facility] Urine Blood/HGBTrace(A)Negative 01/19/2025 3:33 PM ESTPROHOLLYWOOD COMMUNITY HOSPITAL OF VAN NUYSpecimen (Source) Anatomical Location / LateralityCollection Method / VolumeCollection Time Received RmnaXxcjx39/16/2025 3:31 PM EST01/19/2025 3:33 PM EST Narrative Authorizing ProviderResult TypeResult StatusPatricvicky Dominguez MDPOINT OF CARE TEST ORDERABLESFinal ResultPerforming OrganizationAddressCity/State/ZIP CodePhone Number [address] [place] [address], [place] * BB ARC TUBES (01/19/2025 2:15 PM EST)ComponentValueRef RangeTest Method Analysis TimePerformed AtPathologist SignatureExtra TubeAuto Resulted 01/19/2025 4:01 PM ESTPROHOLLYWOOD COMMUNITY HOSPITAL OF VAN NUYSpecimen (Source) Anatomical Location / LateralityCollection Method / VolumeCollection Time Received TimeBloodVenous blood / UnknownVenipuncture / Ftrircl5601/19/2025 2:15 PM EST01/19/2025 2:22 PM EST Narrative Authorizing ProviderResult TypeResult StatusPatricvicky Dominguez MDBLDediServe BANK TEST ORDERABLESFinal ResultPerforming OrganizationAddressCity/State/ZIP CodePhone Number [address] [place] [address], [place] * Type and screen(includes indirect noris) (01/19/2025 2:15 PM EST)Component ValueRef RangeTest MethodAnalysis TimePerformed AtPathologist SignatureABOO 01/19/2025 3:17 PM ESTFRE BB - XRYSBUAHHBypbryyu23/16/2025 3:17 PM ESTFRE BB - WELLSKYAntibody VxepqdOmzrvbcp86/16/2025 3:17 PM ESTFRE BB - WELLSKYSpecimen (Source)Anatomical Location / LateralityCollection Method / VolumeCollection TimeReceived TimeBloodVenous blood / UnknownVenipuncture / Vkpnjdc7201/19/2025 2:15 PM EST01/19/2025 2:22 PM EST Narrative Authorizing ProviderResult TypeResult StatusPatricvicky Dominguez MDBLOOD BANK TEST ORDERABLESEdited Result - FinalPerforming OrganizationAddressCity/State/ZIP Code Phone Number [facility] [address] [place] [address] [place] [address], [place] * Troponin I, High Sensitivity 1 Hour (01/19/2025 2:15 PM EST)ComponentValueRef RangeTest MethodAnalysis TimePerformed AtPathologist SignatureTROPONIN I, HIGH SENSITIVITY3<21 ng/L103/21/2024 2:52 PM ESTFL[facility] Specimen (Source)Anatomical Location / LateralityCollection Method / Volume Collection TimeReceived TimeBloodVenous blood / UnknownVenipuncture / Unknown 01/19/2025 2:15 PM EST01/19/2025 2:22 PM EST Narrative Authorizing ProviderResult TypeResult StatusPatricvicky OCONNOR BLOOD ORDERABLESFinal ResultPerforming OrganizationAddressCity/State/ZIP CodePhone Number [facility] [address] [facility] [place] [address], * CT brain without contrast (01/19/2025 2:01 PM EST)Anatomical RegionLaterality ModalityNeuro, Head, Head and Neck, Neuro CoveraN/AComputed TomographySpecimen (Source)Anatomical Location / LateralityCollection Method / VolumeCollection TimeReceived Time01/19/2025 2:04 PM EST Narrative 01/19/2025 2:[address] BRAIN WO CONT: 01/19/2025 1:57 PM Clinical: Vertigo. EXAM: ??NONCONTRAST BRAIN CT Comparison: none Procedure: ?? Multi-detector CT performed through the brain without IV contrast. Automatic exposure control utilized. All CT scans at this facility use dose modulation, iterative reconstruction, and/or weight based dosing when appropriate to reduce radiation dose to as low as reasonably achievable. Findings: ?? There is no intracranial hemorrhage, extra-axial fluid collection, mass effect, midline shift, or hydrocephalus. Patent basal cisterns. MRI is more sensitive for evaluation of acute ischemia and subtle parenchymal abnormalities. IMPRESSION: * ??No acute intracranial abnormality by CT. Finalized by Saleem Dalton MD on 01/19/2025 2:05 PM Procedure Note Saleem Dalton MD - 01/19/2025 CT BRAIN WO CONT: 01/19/2025 1:57 PM Clinical: Vertigo. EXAM: NONCONTRAST BRAIN CT Comparison: none Procedure: Multi-detector CT performed through the brain without IV contrast.Automatic exposure control utilized. All CT scans at this facility use dose modulation, iterativereconstruction, and/or weight based dosing when appropriate to reduceradiation dose to as low as reasonably achievable. Findings: There is no intracranial hemorrhage, extra-axial fluid collection, masseffect, midline shift, or hydrocephalus. Patent basal cisterns. MRI is more sensitive for evaluation of acute ischemia and subtleparenchymal abnormalities. IMPRESSION: * No acute intracranial abnormality by CT. Finalized by Saleem Dalton MD on 01/19/2025 2:05 PM Authorizing ProviderResult TypeResult StatusPatricvicky Dominguez MDIMG CT ORDERABLES Final Result * SARS/FLU A+B/RSV by NAAT/Molecular (M4RT Collection Tube) (01/19/2025 1:17 PM EST)ComponentValueRef RangeTest MethodAnalysis TimePerformed AtPathologist SignatureFLU A BUZQpcfarpeInfxamsf60/16/2025 2:01 PM ESTPROCORCORAN DISTRICT HOSPITALFLU B UCVQtyzhdrjVhjsivwu21/16/2025 2:01 PM ESTFLOWER HOSPITALRSV BY KZUCdbnudafOjmkjjgx45/16/2025 2:01 PM EST [facility] COV 2 BY PCRNot DetectedNot Detected 01/19/2025 2:01 PM ESTCLINTON MEMORIAL HOSPITALpecimen (Source) Anatomical Location / LateralityCollection Method / VolumeCollection Time Received TimeSwabNasopharyngeal structure / Xqectao9101/19/2025 1:17 PM EST 01/19/2025 1:19 PM EST Narrative [facility] - 01/19/2025 2:01 PM EST The Xpert Xpress SARS-CoV-2/Flu/RSV Plus test is a rapid, multiplexed real-time RT-PCR test intended for the simultaneous qualitative detection and differentiation of SARS-CoV-2, influenza A, influenza B and respiratory syncytial virus (RSV) viral RNA from individuals suspected of respiratory viral infection consistent with COVID-19 by Their healthcare provider. This test has not been validated in asymptomatic patients. The Xpert Xpress SARS-CoV-2 test is intended for use by qualified and trained operators who are performing tests using either [employer] or [facility] [employer] systems and is limited to laboratories that meet the CLIA requirements to perform high and moderate complexity tests. The Xpert Xpress SARS-CoV-2/Flu/RSV Plus is only for use under the Food and Drug Administration's Emergency Use Authorization. Results are for the simultaneous detection and differentiation of SARS-CoV-2, influenza A, influenza B and RSV nucleic acids in clinical specimens. SARS-CoV-2, influenza A, influenza B and RSV RNA identified by this test are generally detectable in upper respiratory samples during the acute phase of infection. Positive results are Indicative of the presence of the identified virus, but do not rule out bacterial infection or co-infection with other pathogens not detected by this test. Clinical correlation with patient history and other diagnostic information is necessary to determine patient infection status. The agent detected may not be the definite cause of disease. Negative results do not preclude SARS-CoV-2, influenza A, influenza B and RSV infection and should not be used as the sole basis for treatment or other patient management decisions. Negative results must be combined with clinical observations, patient history and epidemiological information. An Invalid result may occur with specimen-associated inhibition unable to be resolved with specimen repeat. Fact Sheet for Healthcare Providers: ?? https://www.fda.gov/media/010972/download ? Fact Sheet for Patients: ?? https://www.fda.gov/media/404339/download ?? Authorizing ProviderResult TypeResult Kaye Dominguez MDMICROBIOLOGY - GENERAL ORDERABLESFinal ResultPerforming OrganizationAddressCity/State/ZIP Code Phone Number [address] [address], * Extra Urine Hope (01/19/2025 1:17 PM EST)ComponentValueRef RangeTest Method Analysis TimePerformed AtPathologist SignatureExtra TubeAuto Resulted 01/19/2025 4:02 PM ESTPROMEDICA BARTON MEMORIAL HOSPITALpecimen (Source) Anatomical Location / LateralityCollection Method / VolumeCollection Time Received TimeUrineUrine specimen collection, clean catch / Yxbmvww2401/19/2025 1:17 PM EST01/19/2025 3:47 PM EST Narrative Authorizing ProviderResult TypeResult StatusJulian Dominguez MDURINE ORDERABLES Final ResultPerforming OrganizationAddressCity/State/ZIP CodePhone Number [address] [address], * Extra Urine Culture (01/19/2025 1:17 PM EST)ComponentValueRef RangeTest Method Analysis TimePerformed AtPathologist SignatureExtra TubeAuto Resulted 01/19/2025 4:02 PM ESTPROHOLLYWOOD COMMUNITY HOSPITAL OF VAN NUYSpecimen (Source) Anatomical Location / LateralityCollection Method / VolumeCollection Time Received TimeUrineUrine specimen collection, clean catch / Ndpazqx8301/19/2025 1:17 PM EST01/19/2025 3:47 PM EST Narrative Authorizing ProviderResult TypeResult StatusPatricvicky CANTU ORDERABLES Final ResultPerforming OrganizationAddressCity/State/ZIP CodePhone Number [address] [place] [address], [place] * Extra Urine (01/19/2025 1:17 PM EST)ComponentValueRef RangeTest MethodAnalysis TimePerformed AtPathologist SignatureExtra TubeAuto Ceftntga10/16/2025 4:02 PM ESTPROVencor Hospitaln (Source)Anatomical Location / LateralityCollection Method / VolumeCollection TimeReceived TimeUrineUrine specimen collection, clean catch / Krsavjo6501/19/2025 1:17 PM EST01/19/2025 3:47 PM EST Narrative Authorizing ProviderResult TypeResult StatusPatricvicky CANTU ORDERABLES Final ResultPerforming OrganizationAddressty/State/ZIP CodePhone Number [address] [place] [address], [place] * ABO Rh Repeat (01/19/2025 1:16 PM EST)ComponentValueRef RangeTest Method Analysis TimePerformed AtPathologist BuussymjmETGU94/16/2025 4:53 PM ESTFRE BB - SVYSAJMJWRiqurima42/16/2025 4:53 PM ESTFRE BB - WELLSKYSpecimen (Source) Anatomical Location / LateralityCollection Method / VolumeCollection Time Received TimeBloodVenous blood / UnknownVenipuncture / Pewbflu1301/19/2025 1:16 PM EST01/19/2025 1:19 PM EST Narrative Authorizing ProviderResult TypeResult StatusHanytricvicky Dominguez MDBLOOD BANK TEST ORDERABLESFinal ResultPerforming OrganizationAddressty/State/ZIP CodePhone Number [address] [address], [place] * Ferritin (01/19/2025 1:16 PM EST)ComponentValueRef RangeTest MethodAnalysis TimePerformed AtPathologist IbdwbhwhiVNVRCXTU0161 - 336 ng/mL01/20/2025 1:00 AM [facility] LABORATORYSpecimen (Source)Anatomical Location / LateralityCollection Method / VolumeCollection TimeReceived TimeBloodVenous blood / UnknownVenipuncture / Nbvclyf8701/19/2025 1:16 PM EST01/19/2025 1:19 PM EST Narrative Authorizing ProviderResult TypeResult StatusRusarah OCONNOR BLOOD ORDERABLESFinal ResultPerforming OrganizationAddressCity/State/ZIP CodePhone Number [facility] [address] [place] [address], * (ABNORMAL) Iron and TIBC (01/19/2025 1:16 PM EST)ComponentValueRef RangeTest MethodAnalysis TimePerformed AtPathologist NapfycrvfCBTB09(L)50 - 212 ug/dL 01/20/2025 12:45 AM [facility] LABORATORYIRON CBPHHWV831609 - 425 ug/dL01/20/2025 12:45 AM [facility] LABORATORYIRON SATURATION3(L)20 - 50 % PHFFVPHCAP54/17/2025 12:45 AM [facility] LABORATORYSpecimen (Source)Anatomical Location / LateralityCollection Method / VolumeCollection TimeReceived TimeBloodVenous blood / Unknown Venipuncture / Udnvjcx4801/19/2025 1:16 PM EST01/19/2025 1:19 PM EST Narrative Authorizing ProviderResult TypeResult StatusSilas Keating [facility] BLOOD ORDERABLESFinal ResultPerforming OrganizationAddressCity/State/ZIP CodePhone Number [facility] [address] [place] [address], * Light Blue Top (01/19/2025 1:16 PM EST)ComponentValueRef RangeTest Method Analysis TimePerformed AtPathologist SignatureExtra TubeAuto Resulted 01/19/2025 3:01 PM ESTPROHOLLYWOOD COMMUNITY HOSPITAL OF VAN NUYSpecimen (Source) Anatomical Location / LateralityCollection Method / VolumeCollection Time Received TimeBloodVenous blood / Hzpwvmg6801/19/2025 1:16 PM EST01/19/2025 1:20 PM EST Narrative Authorizing ProviderResult TypeResult StatusPatricvicky OCONNOR BLOOD ORDERABLESFinal ResultPerforming OrganizationAddressty/State/ZIP CodePhone Number [address] [place] [address], [place] * Troponin I, High Sensitivity 0 Hour (01/19/2025 1:16 PM EST)ComponentValueRef RangeTest MethodAnalysis TimePerformed AtPathologist SignatureTROPONIN I, HIGH SENSITIVITY3<21 ng/L103/21/2024 1:51 PM ESTFL[facility] Specimen (Source)Anatomical Location / LateralityCollection Method / Volume Collection TimeReceived TimeBloodVenous blood / UnknownVenipuncture / Unknown 01/19/2025 1:16 PM EST01/19/2025 1:19 PM EST Narrative Authorizing ProviderResult TypeResult StatusHanytricvicky OCONNOR BLOOD ORDERABLESFinal ResultPerforming OrganizationAddressty/State/ZIP CodePhone Number [address] [place] [address], [place] * (ABNORMAL) Lipase (01/19/2025 1:16 PM EST)ComponentValueRef RangeTest Method Analysis TimePerformed AtPathologist GbmlxnbztQFCEND79(H)17 - 40 U/L103/21/2024 1:41 PM ESTPROHOLLYWOOD COMMUNITY HOSPITAL OF VAN NUYSpecimen (Source)Anatomical Location / LateralityCollection Method / VolumeCollection TimeReceived Time BloodVenous blood / UnknownVenipuncture / Fnqmaof1501/19/2025 1:16 PM EST 01/19/2025 1:19 PM EST Narrative Authorizing ProviderResult TypeResult StatusHanytricvicky Dominguez MDLAB BLOOD ORDERABLESFinal ResultPerforming OrganizationAddressCity/State/ZIP CodePhone Number [address] [address], [place] * Liver panel (01/19/2025 1:16 PM EST)ComponentValueRef RangeTest MethodAnalysis TimePerformed AtPathologist SignatureTOTAL PROTEIN7.16.0 - 8.0 g/dL01/19/2025 1:47 PM ESTPROCORCORAN DISTRICT HOSPITALALBUMIN3.43.2 - 5.3 g/dL 01/19/2025 1:47 PM ESTFLOWER HOSPITALBILIRUBIN,TOTAL1.00.3 - 1.2 mg/dL01/19/2025 1:47 PM ESTPROCORCORAN DISTRICT HOSPITALALKALINE [id number] - 130 U/L103/21/2024 1:47 PM ESTFLOWER HOSPITALAST26<=41 U/L103/21/2024 1:47 PM [facility] ALT34<=40 U/L103/21/2024 1:47 PM [facility] BILIRUBIN,DIRECT0.4<=0.4 mg/dL01/19/2025 1:47 PM [facility]pecimen (Source)Anatomical Location / LateralityCollection Method / VolumeCollection TimeReceived TimeBloodVenous blood / UnknownVenipuncture / Ooawnvc1301/19/2025 1:16 PM EST01/19/2025 1:19 PM EST Narrative Authorizing ProviderResult TypeResult StatusPatricvicky Dominguez MDLAB BLOOD ORDERABLESFinal ResultPerforming OrganizationAddressCity/State/ZIP CodePhone Number [facility] [address] [place] [address], * (ABNORMAL) Basic Metabolic Panel (01/19/2025 1:16 PM EST)ComponentValueRef RangeTest MethodAnalysis TimePerformed AtPathologist WpnopofjeAOLMCM990(L)134 - 146 mmol/L103/21/2024 1:47 PM ESTFLOWER HOSPITALPOTASSIUM 3.1(L)3.5 - 5.0 mmol/L103/21/2024 1:47 PM ESTFLOWER HOSPITALCHLORIDE95(L)98 - 109 mmol/L103/21/2024 1:47 PM ESTPROCORCORAN DISTRICT HOSPITALCARBON HDEYDCH7845 - 32 mmol/L103/21/2024 1:47 PM ESTFLOWER HOSPITALANION XJX102 - 15 mmol/L103/21/2024 1:47 PM EST [facility]ITALBLOOD UREA XIIWLVRH619 - 23 mg/dL01/19/2025 1:47 PM ESTFLOWER HOSPITALCREATININE1.080.70 - 1.20 mg/dL 01/19/2025 1:47 PM [facility]Comment:METHOD TRACEABLE TO IDMS DTAKKMSGOSNYATE958(H)65 - 99 mg/dL01/19/2025 1:47 PM EST [facility]PITALCALCIUM8.2(L)8.5 - 10.5 mg/dL01/19/2025 1:47 PM [facility]CAREEGFR Non-Race Cevcrfzbp92>=60 ml/min/1.73sq.m103/21/2024 1:47 PM [facility] Comment: eGFR not reported due to non-numeric value for Creatinine. Reported eGFR is based on the CKD-EPI 2020 equation that does not use a race coefficient. Specimen (Source)Anatomical Location / LateralityCollection Method / Volume Collection TimeReceived TimeBloodVenous blood / UnknownVenipuncture / Unknown 01/19/2025 1:16 PM EST01/19/2025 1:19 PM EST Narrative Authorizing ProviderResult TypeResult StatusPatricvicky Dominguez MDLAB BLOOD ORDERABLESFinal ResultPerforming OrganizationAddressCity/State/ZIP CodePhone Number [facility] [address] [place] [address], * (ABNORMAL) CBC auto differential (01/19/2025 1:16 PM EST)ComponentValueRef RangeTest MethodAnalysis TimePerformed AtPathologist SignatureWBC6.74 - 11 X10^9/L103/21/2024 1:28 PM [facility]CARERBC Count3.66 (L)4.1 - 5.7 X10^12/L103/21/2024 1:28 PM [facility] Hemoglobin8.8(L)13 - 17 g/dL01/19/2025 1:28 PM ESTFLOWER HOSPITALHematocrit26.7(L)39 - 50 %01/19/2025 1:28 PM ESTFLOWER HOSPITALMCV73(L)80 - 100 fL01/19/2025 1:28 PM [facility]CAREMCH24.0(L)27 - 34 pg01/19/2025 1:28 PM [facility]ITALHC32.932 - 36 g/dL01/19/2025 1:28 PM [facility]ERDW16.3(H)11.5 - 15 %01/19/2025 1:28 PM [facility]AREPlatelet Fklxo256948 - 450 X10^9/L103/21/2024 1:28 PM EST [facility]ITALMPV8.17 - 12 fL01/19/2025 1:28 PM EST [facility]ITALNeutrophils %78.0%01/19/2025 1:28 PM EST [facility]ITALLymphocytes %8.0%01/19/2025 1:28 PM EST [facility]ITALMonocytes %13.0%01/19/2025 1:28 PM EST [facility]OS[facility]ITALEosinophils %0.7%01/19/2025 1:28 PM EST [facility]ITALBasophils %0.3%01/19/2025 1:28 PM EST [facility]PITALNeutrophils Absolute (A)5.21.5 - 6.6 X10^9/L103/21/2024 1:28 PM [facility]ELymphocytes Absolute0.5(L)1.0 - 3.5 X10^9/L103/21/2024 1:28 PM ESTFLOWER HOSPITALMonocytes Absolute0.90.0 - 0.9 X10^9/L103/21/2024 1:28 PM EST [facility]ITALEosinophils Absolute0.00.0 - 0.4 X10^9/L 01/19/2025 1:28 PM ESTFLOWER HOSPITALBasophils Absolute0.0 0.0 - 0.2 X10^9/L103/21/2024 1:28 PM [facility] Differential TypeAUTOMATED IUBRJDFSKSAK23/16/2025 1:28 PM [facility]ITALpecimen (Source)Anatomical Location / LateralityCollection Method / VolumeCollection TimeReceived TimeBloodVenous blood / Unknown Venipuncture / Gxxdgtq5201/19/2025 1:16 PM EST01/19/2025 1:19 PM EST Narrative Authorizing ProviderResult TypeResult StatusPatricvicky Dominguez MDLAB BLOOD ORDERABLESFinal ResultPerforming OrganizationAddressCity/State/ZIP CodePhone Number [facility] [address] [place] [address], * ED NIHSS And Thrombolytic MD Screening (01/19/2025 1:05 PM EST) Narrative Julian Dominguez MD - 01/19/2025 1:05 PM EST Julian Dominguez MD 01/19/2025 3:13 PM ED NIHSS And Thrombolytic MD Screening Performed by: Julian Dominguez MD Authorized by: Julian Dominguez MD ?? Time NIHSS was performed: ??01/16/2025 2:01 PM Interval: ??Baseline LOC: 0 - Alert ?? LOC Questions: 0 - Answers both correctly ?? LOC Commands: 0 - Performs both tasks correctly ?? Best Gaze: 0 - Normal horizontal movements ?? Visual Jean: 0 - No visual field defect ?? Facial Movements: 0 - Normal ?? Motor Function Right Arm: 0 - No drift right arm holds for 10 seconds ?? Motor Function Left Arm: 0 - No drift left arm holds for 10 seconds ?? Motor Function Right Le - No drift right leg holds for full 5 seconds ?? Motor Function Left Le - No drift left leg, holds for full 5 seconds ?? Limb Ataxia: 0 - No limb ataxia ?? Sensory: 0 - No sensory loss ?? Language: 0 - Language normal ?? Articulation: 0 - Articulation normal ?? Extinction or Inattention: 0 - Extinction or inattention absent ?? TOTAL NIHSS SCORE: ??0 Do presenting disabilities interfere with lifestyle(i.e. work, hobbies, entertainment etc.?: Yes ?? Absolute Contraindications: ??Onset greater than 4.5 hours - Patient not eligible for Thrombolytic. Decision for Thrombolytics: ??Thrombolytics will not be given based on the history and assessment of the patient. Authorizing ProviderResult TypeResult StatusJulian Dominguez MDPROCEDURE/MINOR SURGICAL ORDERABLESFinal Result * ECG 12 lead (01/19/2025 1:04 PM EST)Specimen (Source)Anatomical Location / LateralityCollection Method / VolumeCollection TimeReceived Time01/19/2025 1:04 PM EST Narrative Authorizing ProviderResult TypeResult StatusJulian Dominguez MDECG ORDERABLES Final ResultPerforming OrganizationAddressCity/State/ZIP CodePhone Number [facility] documented in this encounter Visit Diagnoses Diagnosis Symptomatic anemia- Primary Symptomatic anemia documented in this encounter Admitting Diagnoses Diagnosis Symptomatic anemia documented in this encounter Administered Medications Medication OrderMAR ActionAction DateDoseRateSite acetaminophen (TYLENOL) tablet 650 mg 650 mg, oral, Once, On 01/19/25 at 1620, For 1 dose Given01/19/2025 4:26 PM KXD280 mg cefTRIAXone (ROCEPHIN) IVPB 1000 mg/50 mL in iso-osmotic dextrose (20 mg/mL premix) 1,000 mg, intravenous, at 100 mL/hr, Administer over 30 Minutes, Every 24 hours, First dose on 01/19/25 at 1930, Look-alike/sound-alike medication - verify indication for use. Do not co-administer with calcium-containing solutions such as Lactated Ringers., Indication: UTI New Bag01/19/2025 7:22 PM EST1,000 mg100 mL/hr diazePAM (VALIUM) injection 2 mg 2 mg, intravenous, Once, On 01/19/25 at 1306, For 1 dose, Look-alike/sound-alike medication - verify indication for use. Given01/19/2025 1:29 PM EST2 mg meclizine (ANTIVERT) tablet 25 mg 25 mg, oral, Once, On 01/19/25 at 1306, For 1 dose, Look-alike/sound-alike medication - verify indication for use. Given01/19/2025 1:30 PM EST25 mg morphine injection 2 mg 2 mg, intravenous, Every 4 hours PRN, for breakthrough pain, Starting on 01/19/25 at 1929, Look-alike/sound-alike medication - verify indication for use. Given01/19/2025 7:46 PM EST2 mg morphine injection 4 mg 4 mg, intravenous, Once, On 01/19/25 at 1418, For 1 dose, Look-alike/sound-alike medication - verify indication for use. Given01/19/2025 2:49 PM EST4 mg ondansetron (PF) (ZOFRAN) injection 4 mg 4 mg, intravenous, Once, On 01/19/25 at 1306, For 1 dose, Intravenous administration preferred to be given over 2-5 minutes. Given01/19/2025 1:27 PM EST4 mg pantoprazole (PROTONIX) 80 mg in sodium chloride 0.9 % 100 mL (0.8 mg/mL) infusion 8 mg/hr (10 mL/hr), intravenous, Continuous, Starting on 01/19/25 at 1410, Look-alike/sound-alike medication - verify indication for use., Indication: Upper GI bleed [facility]01/19/2025 3:04 PM EST8 mg/hr10 mL/hr pantoprazole (PROTONIX) injection 80 mg 80 mg, intravenous, Once, On 01/19/25 at 1410, For 1 dose, Look-alike/sound-alike medication - verify indication for use., Indication: Upper GI bleed Given01/19/2025 3:02 PM EST80 mg potassium chloride (KAYCIEL) 20 mEq/15 mL solution 40 mEq 40 mEq, oral, Once, On 01/19/25 at 1357, For 1 dose, Must dilute before use - Mix in 3-8 ouncesof water or juice before administration When administering in feeding tube, flush before and after per policy and monitor potassium levels Given01/19/2025 2:46 PM EST40 mEq sodium chloride 0.9 % bolus 1,000 mL, intravenous, at 1,935.5 mL/hr, Administer over 31 Minutes, Once, On 01/19/25 at 1306,For 1 dose New Bag01/19/2025 1:22 PM EST1,000 jP4620.5 mL/hr sodium chloride 0.9 % flush 3 mL 3 mL, intravenous, As needed, line care, before and after each intermittent use, Starting on 01/19/25 at 1304 documented in this encounter Active and Recently Administered Medications Times are shown in EST.Medication Order/ acetaminophen (TYLENOL) tablet 650 mg (COMPLETED) 650 mg, oral, Once, On 01/19/25 at 1620, For 1 dose * 1626 (Given - Provider: Brennan Vazquez Jr., LOU) cefTRIAXone (ROCEPHIN) IVPB 1000 mg/50 mL in iso-osmotic dextrose (20 mg/mL premix) 1,000 mg, intravenous, at 100 mL/hr, Administer over 30 Minutes, Every 24 hours, First dose on 01/19/25 at 1930, Look-alike/sound-alike medication - verify indication for use. Do not co-administer with calcium-containing solutions such as Lactated Ringers., Indication: UTI * 1922 (New Bag - Provider: Lidna Pro, LOU) * 1952 (Stop Bag - Provider: Linda Pro, LOU) diazePAM (VALIUM) injection 2 mg (COMPLETED) 2 mg, intravenous, Once, On 01/19/25 at 1306, For 1 dose, Look-alike/sound-alike medication - verify indication for use. * 1329 (Given - Provider: Brennan Vazquez Jr., LOU) meclizine (ANTIVERT) tablet 25 mg (COMPLETED) 25 mg, oral, Once, On 01/19/25 at 1306, For 1 dose, Look-alike/sound-alike medication - verify indication for use. * 1330 (Given - Provider: Brennan Vazquez Jr., RN) morphine injection 4 mg (COMPLETED) 4 mg, intravenous, Once, On 01/19/25 at 1418, For 1 dose, Look-alike/sound-alike medication - verify indication for use. * 1449 (Given - Provider: Brennan Vazquez Jr., RN) ondansetron (PF) (ZOFRAN) injection 4 mg (COMPLETED) 4 mg, intravenous, Once, On 01/19/25 at 1306, For 1 dose, Intravenous administration preferred to be given over 2-5 minutes. * 1327 (Given - Provider: Brennan Vazquez Jr., RN) pantoprazole (PROTONIX) injection 80 mg (COMPLETED) 80 mg, intravenous, Once, On 01/19/25 at 1410, For 1 dose, Look-alike/sound-alike medication - verify indication for use., Indication: Upper GI bleed * 1502 (Given - Provider: Brennan Vazquez Jr., RN) potassium chloride (KAYCIEL) 20 mEq/15 mL solution 40 mEq (COMPLETED) 40 mEq, oral, Once, On 01/19/25 at 1357, For 1 dose, Must dilute before use - Mix in 3-8 ouncesof water or juice before administration When administering in feeding tube, flush before and after per policy and monitor potassium levels * 1446 (Given - Provider: Brennan Vazquez Jr., RN) sodium chloride 0.9 % bolus (COMPLETED) 1,000 mL, intravenous, at 1,935.5 mL/hr, Administer over 31 Minutes, Once, On 01/19/25 at 1306,For 1 dose * 1322 (New Bag - Provider: Brennan Vazquez Jr., RN) * 1353 (Stop Bag - Provider: Brennan Vazquez Jr., RN) Medication Order01/17/20240306// pantoprazole (PROTONIX) 80 mg in sodium chloride 0.9 % 100 mL (0.8 mg/mL) infusion 8 mg/hr (10 mL/hr), intravenous, Continuous, Starting on 01/19/25 at 1410, Look-alike/sound-alike medication - verify indication for use., Indication: Upper GI bleed * 1504 (New Bag - Provider: rBennan Vazquez Jr., RN) * 2153 (Stop Bag - Provider: Linda Pro RN - Comment: PTN unable to transport pt with gtt running okay to come off for transport per Lachelle Uribe GERMINATION TESTING MANAGER with admitting) Medication Order/ morphine injection 2 mg 2 mg, intravenous, Every 4 hours PRN, for breakthrough pain, Starting on 01/19/25 at 1929, Look-alike/sound-alike medication - verify indication for use. * 1946 (Given - Provider: Linda Pro, LOU) sodium chloride 0.9 % flush 3 mL 3 mL, intravenous, As needed, line care, before and after each intermittent use, Starting on 01/19/25 at 1304 documented in this encounter Additional Health Concerns InfectionOnset DateLast IndicatedResolved TimeRespiratory Rule-Out01/19/2025 2:01 PM ESTdocumented as of this encounter Care Teams Team MemberRelationshipSpecialtyStart DateEnd Date Tina Herrera, ADRIANO-GERMINATION TESTING MANAGER [address] [place] [id number] PCP - GeneralFamily Vougusqm00/13/24documented as of this encounter
--- OUTSIDE RECORDS SUMMARY | 2025-01-19 22:57 | XMS_ITS | Encounter Summary ---
Author Organization [facility] tem Address [id number] [address] [place] [address] Care Team Providers Care Roofing Foreman Name Role Phone Tina Willis APRN-SUPERVISOR [employer]ATION Primary Care Provider Reason for Visit * Auth/CertSpecialtyDiagnoses / ProceduresReferred By ContactReferred To Contact Diagnoses Symptomatic anemia & dizziness Silas Keating MD [address], [facility] [address] [place] [address] Phone: tel: fax: Referral IDStatusReasonStart DateExpiration DateVisits RequestedVisits [id number] Encounter Details DateTypeDepartmentCare Team (Latest Contact Info)Urywzrcxauk37/16/2025 10:57 PM EST - 01/21/2025 4:00 AM ESTHospital Encounter [facility] - [address] Med [address] [place] [phone] Silas Keating MD [address], [address] [place] [address] Discharge Disposition: Another Hospital Social History Tobacco UseTypesPacks/DayYears UsedDateSmoking Tobacco: FormerCigarettes Smokeless Tobacco: CurrentAlcohol UseStandard Drinks/WeekCommentsNot Currently0 (1 standard drink = 0.6 oz pure alcohol)PRAPARE - TransportationAnswerDate RecordedIn the past 12 months, has lack of transportation kept you from medical appointments or from getting medications?No01/21/2025In the past 12 months, has lack of transportation kept you from meetings, work, or from getting things needed for daily living?No01/21/2025HC UtilitiesAnswerDate RecordedIn the past 12 months has the electric, gas, oil, or water company threatened to shut off services in your home?No01/21/2025Housing InstabilityAnswerDate RecordedAre you worried or concerned that in the next two months you may not have stable housing that you own, rent or stay in as a part of a household?No01/21/2025Hunger ScreeningAnswerDate RecordedWithin the past 12 months we worried whether our food would run out before we got money to buy more.Patient Alzfubwl65/18/2025 Within the past 12 months the food we bought just didn't last and we didn't have money to get more.Patient Uzsetary54/18/2025Sex and Gender InformationValueDate RecordedSex Assigned at BirthNot on fileLegal BkjYzzf15/13/2024 1:45 PM EST Gender IdentityNot on fileSexual OrientationNot on filedocumented as of this encounter Last Filed Vital Signs Vital SignReadingTime TakenCommentsBlood Dlwjhhqn630/7301/20/2025 7:20 PM EST Vvbpv922901/20/2025 7:20 PM MHIUciumkwekfh17.7 ??C (98.1 ??F)01/20/2025 7:20 PM ESTRespiratory Cbps962103/22/2024 7:20 PM ESTOxygen Xaslkttwmh06%01/20/2025 7:20 PM ESTInhaled Oxygen Concentration--Loxhks519.3 kg (229 lb 14.4 oz)01/20/2025 5:00 AM QMKYwpyha862.5 cm (6' 3 )01/19/2025 11:16 PM ESTBody Mass Index28.74 01/19/2025 11:16 PM ESTdocumented in this encounter Functional Status documented as of this encounter Discharge Summaries * Silas Keating MD - 01/20/2025 10:41 AM EST Images from the original note were not included. [facility] INTER[facility] - [address] [place] [phone] Hospital Medicine Discharge Summary Patient: Stanford Mccray Date of : 1980 Room: 251/01 Encounter date: 01/20/25 Hospital Day: 2 DATE OF ADMISSION: 01/19/2025 DATE OF DISCHARGE:01/20/2025 DISCHARGE DIAGNOSES Principal Problem: Symptomatic anemia Active Problems: Dizziness Acute cystitis with hematuria Hypokalemia Hyponatremia Hypochloremia Elevated LFTs Hepatic steatosis GI bleed CONSULTANTS None needs general surgery PCP: TINA WILLIS, PLASTICS SEASONER OPERATOR-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 Stanford Mccray is a 44-year-old male who comes from [facility] with dizziness. Patient reports he had dizziness for the last couple days has not been able to eat had 2 black tarry stools. Patient reports he just has not felt well. Patient reports he follows with GI has been a couple years in [facility] patient is noted to be ill-appearing with a hemoglobin of 8.8 in the ER since dropped to 8.4. Patient was started on Protonix drip has not had a stool here yet to check for an occult. Patient did have a negative occult a couple days ago. Due to ill-appearing appearance and continued decreased hemoglobin would recommend transferring for for now will trend H&H add IV Venofer.Did note hemoglobin January 17 was 9.7 last year hemoglobin was 11.4 orthostasis remains positive added normal saline at 50 an hour. Patient had all electrolytes replaced as he has had poor oral intake will hold his hydrochlorothiazide and continue with IV fluids. Patient is also noted to have an acute cystitis with hematuria Rocephin was added urine cultures pending. Patient had a history of c hronic pancreatitis from a necrotizing gallstone in his had chronic abdominal pain since used to beon a lot of narcotics since has weaned off. Patient no longer takes Creon no medications under medication dispensed history.Patient is stable to discharge to [facility] for General surgery input. Please note we did check hepatitis panel as well which was negative. Review of Systems Constitutional: Positive for decreased appetite and malaise/fatigue. Negative for chills, diaphoresis and fever. HENT: Negative for congestion. Cardiovascular: Negative for chest pain, dyspnea on exertion, leg swelling and palpitations. Respiratory: Negative for cough, shortness of breath, sputum production and wheezing. Hematologic/Lymphatic: Bruises/bleeds easily. Skin: Positive for dry skin. Negative for poor wound healing. Musculoskeletal: Negative for arthritis, back pain and falls. Gastrointestinal: Positive for bloating, abdominal pain, change in bowel habit, melena and nausea. Negative for dysphagia and vomiting. Genitourinary: Negative for bladder incontinence. Neurological: Positive for dizziness and weakness. Negative for excessive daytime sleepiness, paresthesias and tremors. Psychiatric/Behavioral: Negative for altered mental status and memory loss. Physical Exam Vitals (on Ra) and nursing note reviewed. Constitutional: General: He is not in acute distress. Appearance: Normal appearance. He is ill-appearing. He is not toxic-appearing or diaphoretic. HENT: Head: Normocephalic and atraumatic. Nose: Nose normal. Mouth/Throat: Mouth: Mucous membranes are moist. Eyes: Pupils: Pupils are equal, round, and reactive to light. Cardiovascular: Rate and Rhythm: Regular rhythm. Bradycardia present. Pulses: Normal pulses. Heart sounds: Normal heart sounds. Pulmonary: Effort: Pulmonary effort is normal. No respiratory distress. Breath sounds: Normal breath sounds. No wheezing or rales. Abdominal: General: Bowel sounds are normal. There is no distension. Palpations: Abdomen is soft. Tenderness: There is abdominal tenderness (generalized). Musculoskeletal: Cervical back: Normal range of motion and neck supple. Right lower leg: No edema. Left lower leg: No edema. Skin: General: Skin is warm and dry. Capillary Refill: Capillary refill takes 2 to 3 seconds. Coloration: Skin is pale. Findings: No bruising. Neurological: Mental Status: He is alert and oriented to person, place, and time. Mental status is at baseline. Sensory: No sensory deficit. Motor: Weakness present. Gait: Gait normal. Psychiatric: Mood and Affect: Mood normal. Behavior: Behavior normal. Thought Content: Thought content normal. Judgment: Judgment normal. Sepsis suspected, no-not clinically evident at this time. Code Status: Full Code Labs Recent Results (from the past 48 hours) CBC auto differential Collection Time: 01/19/25 1:16 PM Result Value Ref Range WBC 6.7 4 - 11 X10^9/L RBC Count 3.66 (L) 4.1 - 5.7 X10^12/L Hemoglobin 8.8 (L) 13 - 17 g/dL Hematocrit 26.7 (L) 39 - 50 % MCV 73 (L) 80 - 100 fL MCH 24.0 (L) 27 - 34 pg MCHC 32.9 32 - 36 g/dL RDW 16.3 (H) 11.5 - 15 % Platelet Count 197 150 - 450 X10^9/L MPV 8.1 7 - 12 fL Neutrophils % 78.0 % Lymphocytes % 8.0 % Monocytes % 13.0 % Eosinophils % 0.7 % Basophils % 0.3 % Neutrophils Absolute (A) 5.2 1.5 - 6.6 X10^9/L Lymphocytes Absolute 0.5 (L) 1.0 - 3.5 X10^9/L Monocytes Absolute 0.9 0.0 - 0.9 X10^9/L Eosinophils Absolute 0.0 0.0 - 0.4 X10^9/L Basophils Absolute 0.0 0.0 - 0.2 X10^9/L Differential Type AUTOMATED DIFFERENTIAL Basic Metabolic Panel Collection Time: 01/19/25 1:16 PM Result Value Ref Range SODIUM 130 (L) 134 - 146 mmol/L POTASSIUM 3.1 (L) 3.5 - 5.0 mmol/L CHLORIDE 95 (L) 98 - 109 mmol/L CARBON DIOXIDE 24 22 - 32 mmol/L ANION GAP 11 5 - 15 mmol/L BLOOD UREA NITROGEN 10 5 - 23 mg/dL CREATININE 1.08 0.70 - 1.20 mg/dL GLUCOSE 171 (H) 65 - 99 mg/dL CALCIUM 8.2 (L) 8.5 - 10.5 mg/dL EGFR Non-Race Dependent 86 >=60 ml/min/1.73sq.m Liver panel Collection Time: 01/19/25 1:16 PM Result Value Ref Range TOTAL PROTEIN 7.1 6.0 - 8.0 g/dL ALBUMIN 3.4 3.2 - 5.3 g/dL BILIRUBIN,TOTAL 1.0 0.3 - 1.2 mg/dL ALKALINE PHOSPHATASE 69 39 - 130 U/L AST 26 <=41 U/L ALT 34 <=40 U/L BILIRUBIN,DIRECT 0.4 <=0.4 mg/dL Lipase Collection Time: 01/19/25 1:16 PM Result Value Ref Range LIPASE 45 (H) 17 - 40 U/L Troponin I, High Sensitivity Collection Time: 01/19/25 1:16 PM Narrative The following orders were created for panel order Troponin I, High Sensitivity. Procedure Abnormality Status --------- ------ Troponin I, High Sensiti...[[id number]] Normal Final result Troponin I, High Sensiti...[[id number]] Normal Final result Please view results for these tests on the individual orders. Troponin I, High Sensitivity 0 Hour Collection Time: 01/19/25 1:16 PM Result Value Ref Range TROPONIN I, HIGH SENSITIVITY 3 <21 ng/L Extra Tubes Collection Time: 01/19/25 1:16 PM Narrative The following orders were created for panel order Extra Tubes. Procedure Abnormality Status --------- ------ Light Blue Top[[id number]] Final result Please view results for these tests on the individual orders. Light Blue Top Collection Time: 01/19/25 1:16 PM Result Value Ref Range Extra Tube Auto Resulted Iron and TIBC Collection Time: 01/19/25 1:16 PM Result Value Ref Range IRON 12 (L) 50 - 212 ug/dL IRON BINDING 388 250 - 425 ug/dL IRON SATURATION 3 (L) 20 - 50 % SATURATION Ferritin Collection Time: 01/19/25 1:16 PM Result Value Ref Range FERRITIN 83 24 - 336 ng/mL ABO Rh Repeat Collection Time: 01/19/25 1:16 PM Result Value Ref Range ABO O RH Negative Extra Urine Collection Time: 01/19/25 1:17 PM Specimen: Urine, Clean Catch Midstream Result Value Ref Range Extra Tube Auto Resulted Extra Urine Culture Collection Time: 01/19/25 1:17 PM Specimen: Urine, Clean Catch Midstream Result Value Ref Range Extra Tube Auto Resulted Extra Urine [place] Collection Time: 01/19/25 1:17 PM Specimen: Urine, Clean Catch Midstream Result Value Ref Range Extra Tube Auto Resulted SARS/FLU A+B/RSV by NAAT/Molecular (M4RT Collection Tube) Collection Time: 01/19/25 1:17 PM Result Value Ref Range FLU A PCR Negative Negative FLU B PCR Negative Negative RSV BY PCR Negative Negative SARS COV 2 BY PCR Not Detected Not Detected Narrative The Xpert Xpress SARS-CoV-2/Flu/RSV Plus test is [...] operators who are performing tests using either [employer] or [facility] systems and islimited to laboratories that meet the CLIA requirements to perform high and moderate complexity tests. The Xpert Xpress SARS-CoV-2/Flu/RSV Plus is only for use under the Food and Drug Administration's Emergency Use Authorization. Results are for the simultaneous detection and differentiation of SARS-CoV-2, influenza A, influenza B and RSV nucleic acids in clinical specimens. SARS-CoV-2, influenzaA, influenza B and RSV RNA identified by [...] with clinical observations, patient history and epidemiological information.An Invalid result may occur with specimen-associated inhibition unable to be resolved with specimenrepeat. Fact Sheet for Healthcare Providers: https://www.fda.gov/media/612098/download Fact Sheet for Patients: https://www.fda.gov/media/617488/download Troponin I, High Sensitivity 1 Hour Collection Time: 01/19/25 2:15 PM Result Value Ref Range TROPONIN I, HIGH SENSITIVITY 3 <21 ng/L Type and screen(includes indirect noris) Collection Time: 01/19/25 2:15 PM Result Value Ref Range ABO O RH Negative Antibody Screen Negative BB ARC TUBES Collection Time: 01/19/25 2:15 PM Result Value Ref Range Extra Tube Auto Resulted POCT Nursing Urine Macroscopic UA Collection Time: 01/19/25 3:31 PM Result Value Ref Range POC Urine Specific [place] 1.015 1.010, 1.015, 1.020, 1.025 POC Urine Leukocyte Esterase Small (A) Negative POC Urine Nitrite Negative Negative POC Urine pH 6.0 5.0, 6.0, 6.5, 7.0, 7.5, 8.0, 8.5, 5.5 POC Urine Protein 30 mg/dL (A) Negative POC Urine Glucose Negative Negative POC Urine Ketones Negative Negative POC Urine Urobilinogen >=8.0 E.U./dL POC Urine Bilirubin Small (A) Negative POC Urine Blood/HGB Trace (A) Negative Hepatitis panel, acute Collection Time: 01/20/25 5:45 AM Result Value Ref Range HEPATITIS B SURF AG Non-Reactive Non-Reactive HEPATITIS A IGM Non-Reactive Non-Reactive HEPATITIS B CORE IGM Non-Reactive Non-Reactive ANTI HCV W/PCR REFLX Non-Reactive Non-Reactive Osmolality Collection Time: 01/20/25 5:45 AM Result Value Ref Range OSMOLALITY 273 (L) 280 - 300 mOsm/kg H2 Comprehensive metabolic panel Collection Time: 01/20/25 5:50 AM Result Value Ref Range SODIUM 130 (L) 134 - 146 mmol/L POTASSIUM 3.8 3.5 - 5.0 mmol/L CHLORIDE 96 (L) 98 - 109 mmol/L CARBON DIOXIDE 26 22 - 32 mmol/L ANION GAP 8 5 - 15 mmol/L BLOOD UREA NITROGEN 11 5 - 23 mg/dL CREATININE 1.15 0.70 - 1.20 mg/dL GLUCOSE 102 (H) 65 - 99 mg/dL CALCIUM 8.0 (L) 8.5 - 10.5 mg/dL TOTAL PROTEIN 6.5 6.0 - 8.0 g/dL ALBUMIN 3.1 (L) 3.2 - 5.3 g/dL ALKALINE PHOSPHATASE 115 39 - 130 U/L AST 55 (H) <=41 U/L ALT 51 (H) <=40 U/L BILIRUBIN,TOTAL 1.6 (H) 0.3 - 1.2 mg/dL EGFR Non-Race Dependent 79 >=60 ml/min/1.73sq.m Magnesium Collection Time: 01/20/25 5:50 AM Result Value Ref Range MAGNESIUM 2.0 1.8 - 2.6 mg/dL CBC auto differential Collection Time: 01/20/25 5:50 AM Result Value Ref Range WBC 8.2 4 - 11 X10^9/L RBC Count 3.46 (L) 4.1 - 5.7 X10^12/L Hemoglobin 8.4 (L) 13 - 17 g/dL Hematocrit 25.4 (L) 39 - 50 % MCV 73 (L) 80 - 100 fL MCH 24.3 (L) 27 - 34 pg MCHC 33.2 32 - 36 g/dL RDW 16.0 (H) 11.5 - 15 % Platelet Count 208 150 - 450 X10^9/L MPV 7.7 7 - 12 fL Neutrophils % 79.9 % Lymphocytes % 6.7 % Monocytes % 12.4 % Eosinophils % 0.7 % Basophils % 0.3 % Neutrophils Absolute (A) 6.5 1.5 - 6.6 X10^9/L Lymphocytes Absolute 0.5 (L) 1.0 - 3.5 X10^9/L Monocytes Absolute 1.0 (H) 0.0 - 0.9 X10^9/L Eosinophils Absolute 0.1 0.0 - 0.4 X10^9/L Basophils Absolute 0.0 0.0 - 0.2 X10^9/L Differential Type AUTOMATED DIFFERENTIAL TSH with Reflex Collection Time: 01/20/25 5:50 AM Result Value Ref Range TSH 2.17 0.49 - 4.67 uIU/mL Lipase Collection Time: 01/20/25 5:50 AM Result Value Ref Range LIPASE 32 17 - 40 U/L Hemoglobin A1c Collection Time: 01/20/25 5:50 AM Result Value Ref Range HEMOGLOBIN A1C 5.5 4.4 - 5.6 % EST. AVERAGE GLUCOSE 111 mg/dL Sodium, urine, random Collection Time: 01/20/25 9:18 AM Specimen: Urine, Clean Catch Midstream Result Value Ref Range URINE SODIUM,RANDOM 87 mmol/L Osmolality, urine Collection Time: 01/20/25 9:18 AM Specimen: Urine, Clean Catch Midstream Result Value Ref Range URINE OSMOLALITY 325 300 - 1,300 mOsm/kg H2 Drug Screen, Urine Collection Time: 01/20/25 9:18 AM Specimen: Urine, Clean Catch Midstream Result Value Ref Range AMPHETAMINE/METHAMP Negative Negative COCAINE METABOLITE Negative Negative ECSTASY Negative Negative METHADONE Negative Negative OPIATES Positive (A) Negative OXYCODONE Negative Negative PHENCYCLIDINE Negative Negative CANNABINOIDS Negative Negative Urine Barbiturates Negative Negative BENZODIAZEPINES Negative Negative Narrative Confirmation available upon request. Hemoglobin and hematocrit, blood Collection Time: 01/20/25 5:26 PM Result Value Ref Range Hemoglobin 8.1 (L) 13 - 17 g/dL Hematocrit 24.9 (L) 39 - 50 % Radiology CT brain without contrast Result Date: 01/19/2025 Narrative: CT BRAIN WO CONT: 01/19/2025 1:57 PM Clinical: Vertigo. EXAM: NONCONTRAST BRAIN CT Comparison: none Procedure: Multi-detector CT performed through the brain without IV contrast. Automatic exposure control utilized. All CT scans at this facility use dose modulation, iterative reconstruction, and/or weight based dosing when appropriate to reduce radiation dose to as low as reasonably achievable. Findings: There is no intracranial hemorrhage, extra- axial fluid collection, mass effect, midline shift, or hydrocephalus. Patent basal cisterns. MRI is more sensitive for evaluation of acuteischemia and subtle parenchymal abnormalities. IMPRESSION: * No acute intracranial abnormality by CT. Finalized by Saleem Dalton MD on 01/19/2025 2:[address] abdomen and pelvis with contrast Result Date: 01/17/2025 Narrative: ABDOMEN AND PELVIS CT WITH CONTRAST HISTORY: Abdominal pain, nausea and vomiting COMPARISON: None. TECHNIQUE: CT abdomen and pelvis was performed. Axial images were obtained following the uneventful administration of 100 cc Omnipaque 300 nonionic intravenous contrast. Coronal and sagittal reformatted images were obtained and reviewed. Automated exposure control was utilized. FINDINGS: Atelectatic changes in lung bases without significant airspace consolidation or pleural fluid collection. Visible heart is unremarkable. Liver demonstrates no solid mass or intrahepatic biliary ductaldilatation. Gallbladder surgically absent. Coarse calcifications in the [...] No significant enlargement of retroperitoneal or pelvic lymphnodes. No acute osseous abnormality. IMPRESSION: * No definitive acute pathologic process. 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 * Splenomegaly All CT scans at this facility use dose modulation, iterative reconstruction, and/or weight based dosing when appropriate to reduce radiation dose to as low as reasonably achievable. Finalized by Afshin Mahmood MD on 01/17/2025 10:23 PM DISCHARGE INSTRUCTION Disposition: Bernard Condition:Stable Activity: activity as tolerated Diet: Adult diet Clear Liquid Adult diet NPO Follow up: NEVILLE FRENCH within 7-14 days. Should follow back with GI after d/c Labs/Imaging/Pathology: Pending Labs Order Current Status Urine Culture Urine, Clean Catch Midstream In process Discharge Medications: Medication List ASK your doctor about these medications Instructions Last Dose Given Next Dose Due hydroCHLOROthiazide 12.5 mg tablet Commonly known as: HYDRODIURIL Take 1 tablet (12.5 mg total) by mouth daily. hydrOXYzine 25 mg tablet Commonly known as: ATARAX Take 1 tablet (25 mg total) by mouth 2 (two) times a day as needed for itching. lidocaine 5 % Commonly known as: LIDODERM Place 1 patch on the skin daily. Remove & Discard patch within 12 hours or as directed by gyupjs-xqcxaedy-awohooi (pork) 3,000-9,500- 15,000 unit capsule,delayed release(DR/EC) Commonly known as: CREON Take by mouth. ondansetron ODT 4 mg disintegrating tablet Commonly known as: ZOFRAN ODT Dissolve 1 tablet (4 mg total) on tongue every 8 (eight) hours as needed for nausea for up to 6 doses. pantoprazole 20 mg EC tablet Commonly known as: PROTONIX Take 1 tablet (20 mg total) by mouth in the morning. potassium chloride 10 MEQ CR tablet Commonly known as: K-TAB,KLOR-CON Ask about: Should I take this medication? Take 2 tablets (20 mEq total) by mouth in the morning and 2 tablets (20 mEq total) before bedtime. Do all this for 2 days. sertraline 50 mg tablet Commonly known as: ZOLOFT Take 1 tablet (50 mg total) by mouth in the morning. traZODone 50 mg tablet Commonly known as: DESYREL Take 1 tablet (50 mg total) by mouth daily as needed. >30 minutes were spent on discharging this patient. NEVILLE Cloud 01/20/2025 6:09 PM [facility] 7AM-7PM & 7PM-7AM: EpicChat or page through On-[employer]. NEVILLE Cloud 01/20/25 1502 Physician Attestation I, Silas Keating MD, personally performed a face to face diagnostic evaluation on this patient. I have reviewed the note authored by the advance practice provider including history, review of systems,physical examination,medical decision making and agree with the assessment and plan as written. I have seen and evaluated the patient, I have repeated the marroquin portions of the physical exam and concur with the LUIGI findings. I have reviewed all laboratory findings and imaging reports/films. I agree with the plan as noted. documented in this encounter Medications at Time of Discharge MedicationSigDispense QuantityRefillsLast FilledStart DateEnd Date hydroCHLOROthiazide (HYDRODIURIL) 12.5 mg tablet Take 1 tablet (12.5 mg total) by mouth daily.09/01/2023 hydrOXYzine (ATARAX) 25 mg tablet Take 1 tablet (25 mg total) by mouth 2 (two) times a day as needed for itching. lidocaine (LIDODERM) 5 % Indications:Lumbar radiculopathyPlace 1 patch on the skin daily. Remove & Discard patch within 12 hours or as directed by 30 patch 01/17/2024 axluuo-okmymumy-ajdiobo (CREON) 3,000-9,500- 15,000 unit capsule,delayed release(DR/EC) Take [...] mg total) by mouth daily as needed. amoxicillin-pot clavulanate (AUGMENTIN) 875-125 mg per tablet Take 1 tablet by mouth every 12 (twelve) hours for 5 days. 10 tablet meclizine (ANTIVERT) 25 mg tablet Take 1 tablet (25 mg total) by mouth 3 (three) times a day as needed for dizziness. 30 tablet 01/22/2025 pantoprazole (PROTONIX) 40 mg EC tablet Take 1 tablet (40 mg total) by mouth in the morning and 1 tablet (40 mg total) in the evening. Takebefore meals. 60 tablet pantoprazole (PROTONIX) 20 mg EC tablet Take 1 tablet (20 mg total) by mouth in the morning. documented as of this encounter H&P Notes * Napoleon Klein MD - 01/20/2025 7:19 AM EST Images from the original note were not included. [facility] INTERNAL MEDICINE [facility] - [address] [place] [phone] Hospital Medicine History & Physical Patient: Stanford Mccray Date of : 1980 Room: [facility][note 3]/01 PCP: NEVILLE FRENCH Admission date: 01/19/2025 10:57 PM Encounter date: 01/20/25 Hospital Day: 2 SUBJECTIVE Stanford Mccray is a 44 y.o. male who presents with dizziness. Symptoms have been ongoing fora few days recently seen in ER same symptoms in the ER with no acute process. Returns because his dizziness is no better only medical history is hypertension and former smoker. Vitals within normal limits is noted to have rhinorrhea NIH stroke score was a 0 patient reports he only thing different as he had 2 black tarry stools which was very different than his normal. Patient reports he has not had an EGD or colonoscopy and quite some times labs that I could locate from 1 year ago hemoglobin was 11.4. Patient ill- appearing pale Did review note patient was in the ER on 01 17 with abdominal pain and dizziness was given Zofran and potassium and was discharged home also was given Motrin at that time. Rectal exam was completed and he was occult negative at that time Last GI visit I could locate was in 2019 as he has chronic pancreatic pain. Patient reports has been multiple years since he had an EGD or colonoscopy. Last EGD I could find was in 2019 colonoscopy last documented in 2023 I could not find results in Care everywhere Results in the ER RBC 3.66 hemoglobin 8.8 hematocrit 26.7 MCV 73 MCH 24.0 differential normal excluding absolute lymphocytes 0.5 sodium 130 potassium 3.1 chloride 95 glucose 171 calcium 8.2 lipase 45-cardiac enzymes iron 12 ferritin 83 iron sat 3 iron binding capacity 0- flu A/B RSV COVID urinalysis small bilirubin small blood small leukocyte esterase Imaging in the ER CT brain negative, please note I did review imaging from CT abdomen on January 17 No definitive acute pathologic process. 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 Splenomegaly EKG SR Admit for dizziness and multiple electrolyte and abnormalities and anemia Allergies: Patient has no known allergies. Prior to Admission medications Medication Sig Start Date End Date Taking? Authorizing Provider hydroCHLOROthiazide (HYDRODIURIL) 12.5 mg tablet Take 1 tablet (12.5 mg total) by mouth daily. 09/01/23 Not In System Ref Prov hydrOXYzine (ATARAX) 25 mg tablet Take 1 tablet (25 mg total) by mouth 2 (two) times a day as needed for itching. Not In System Ref Prov lidocaine (LIDODERM) 5 % Place 1 patch on the skin daily. Remove & Discard patch within 12 hours or as directed by 01/17/24 Johnna Mcpherson, PLASTICS SEASONER OPERATOR-SUPERVISOR [employer] INST[employer]ATION [id number] (CREON) 3,000-9,500- 15,000 unit capsule,delayed release(DR/EC) Take by mouth. Not In System Ref Prov ondansetron ODT (ZOFRAN ODT) 4 mg disintegrating tablet Dissolve 1 tablet (4 mg total) on tongue every 8 (eight) hours as needed for nausea for up to 6 doses. 01/17/25 Gilson Cabrera, DO pantoprazole (PROTONIX) 20 mg EC tablet Take 1 tablet (20 mg total) by mouth in the morning. 08/11/23Not In System Ref Prov potassium chloride (K-TAB,KLOR-CON) 10 MEQ CR tablet Take 2 tablets (20 mEq total) by mouth in the morning and 2 tablets (20 mEq total) before bedtime. Do all this for 2 days. 01/17/25 01/19/25 Gilson Cabrera, DO sertraline (ZOLOFT) 50 mg tablet Take 1 tablet (50 mg total) by mouth in the morning. 04/10/23 Not InSystem Ref Prov traZODone (DESYREL) 50 mg tablet Take 1 tablet (50 mg total) by mouth daily as needed. Not In System Ref Prov Past Medical History: Patient has a past medical history of Hypertension. Past Surgical History: Patient has a past surgical history that includes Cyst Removal. Family History: Patient's family history is not on file. Social History: Patient reports that he has quit smoking. His smoking use included cigarettes. He uses smokeless tobacco. He reports that he does not currently use alcohol. He reports that he does not currently use drugs. Review of Systems Constitutional: Positive for decreased appetite and malaise/fatigue. Negative for chills, diaphoresis and fever. HENT: Negative for congestion. Cardiovascular: Negative for chest pain, dyspnea on exertion, leg swelling and palpitations. Respiratory: Positive for cough. Negative for shortness of breath, sputum production and wheezing. Hematologic/Lymphatic: Does not bruise/bleed easily. Skin: Negative for dry skin and poor wound healing. Musculoskeletal: Negative for arthritis, back pain and falls. Gastrointestinal: Positive for bloating, abdominal pain, anorexia, change in bowel habit, melena and nausea. Negative for bowel incontinence, dysphagia, hematochezia and vomiting. Genitourinary: Negative for bladder incontinence. Neurological: Positive for dizziness and weakness. Negative for excessive daytime sleepiness, paresthesias and tremors. Psychiatric/Behavioral: Negative for altered mental status and memory loss. OBJECTIVE BP 111/68 Pulse 67 Temp 37.3 ??C (99.2 ??F) (Temporal) Resp 16 Ht 190.5 cm (6' 3 ) Wt 104.3 kg (229 lb 14.4 oz) SpO2 95% BMI 28.74 kg/m?? Temp: [37.3 ??C (99.2 ??F)-37.6 ??C (99.7 ??F)] 37.3 ??C (99.2 ??F) Pulse: [62-76] 67 Resp: [16-23] 16 BP: (93-132)/(53-87) 111/68 SpO2: [94 %-97 %] 95 % O2 Device: None (Room air) Intake/Output Summary (Last 24 hours) at 01/20/2025 0730 Last data filed at 01/20/2025 0532 Gross per 24 hour Intake -- Output 925 ml Net -925 ml Physical Exam Vitals (On room air) and nursing note reviewed. Constitutional: General: He is not in acute distress. Appearance: Normal appearance. He is ill-appearing. He is not toxic-appearing or diaphoretic. HENT: Head: Normocephalic and atraumatic. Nose: Nose normal. Mouth/Throat: Mouth: Mucous membranes are dry. Eyes: Pupils: Pupils are equal, round, and reactive to light. Cardiovascular: Rate and Rhythm: Normal rate and regular rhythm. Pulses: Normal pulses. Heart sounds: Normal heart sounds. Pulmonary: Effort: Pulmonary effort is normal. No respiratory distress. Breath sounds: Normal breath sounds. No wheezing or rales. Abdominal: General: Bowel sounds are normal. There is distension. Palpations: Abdomen is soft. Tenderness: There is abdominal tenderness. Genitourinary: Comments: Yumiko urine Musculoskeletal: Cervical back: Normal range of motion and neck supple. Right lower leg: No edema. Left lower leg: No edema. Skin: General: Skin is warm and dry. Capillary Refill: Capillary refill takes 2 to 3 seconds. Coloration: Skin is pale. Neurological: Mental Status: He is alert and oriented to person, place, and time. Mental status is at baseline. Sensory: No sensory deficit. Motor: Weakness present. Gait: Gait normal. Psychiatric: Mood and Affect: Mood normal. Behavior: Behavior normal. Thought Content: Thought content normal. Judgment: Judgment normal. Medications Scheduled: cefTRIAXone (ROCEPHIN) IV, 1,000 mg, intravenous, Q24H iron sucrose, 200 mg, intravenous, Daily sodium chloride, 3 mL, intravenous, Q12H ZACK Infusions: pantoprazole (PROTONIX) 80 mg in sodium chloride 0.9 % 100 mL (0.8 mg/mL) infusion, 8 mg/hr, Last Rate: 8 mg/hr (01/20/25 0000) sodium chloride 0.9 %, 50 mL/hr As Needed: acetaminophen alum-mag hydroxide-simeth magnesium sulfate magnesium sulfate meclizine morphine injection ondansetron potassium chloride OR potassium chloride OR potassium chloride IV (Adult) sennosides-docusate sodium sodium chloride sodium chloride Allergies: Patient has no known allergies. Labs Recent Results (from the past 24 hours) CBC auto differential Collection Time: 01/19/25 1:16 PM Result Value Ref Range WBC 6.7 4 - 11 X10^9/L RBC Count 3.66 (L) 4.1 - 5.7 X10^12/L Hemoglobin 8.8 (L) 13 - 17 g/dL Hematocrit 26.7 (L) 39 - 50 % MCV 73 (L) 80 - 100 fL MCH 24.0 (L) 27 - 34 pg MCHC 32.9 32 - 36 g/dL RDW 16.3 (H) 11.5 - 15 % Platelet Count 197 150 - 450 X10^9/L MPV 8.1 7 - 12 fL Neutrophils % 78.0 % Lymphocytes % 8.0 % Monocytes % 13.0 % Eosinophils % 0.7 % Basophils % 0.3 % Neutrophils Absolute (A) 5.2 1.5 - 6.6 X10^9/L Lymphocytes Absolute 0.5 (L) 1.0 - 3.5 X10^9/L Monocytes Absolute 0.9 0.0 - 0.9 X10^9/L Eosinophils Absolute 0.0 0.0 - 0.4 X10^9/L Basophils Absolute 0.0 0.0 - 0.2 X10^9/L Differential Type AUTOMATED DIFFERENTIAL Basic Metabolic Panel Collection Time: 01/19/25 1:16 PM Result Value Ref Range SODIUM 130 (L) 134 - 146 mmol/L POTASSIUM 3.1 (L) 3.5 - 5.0 mmol/L CHLORIDE 95 (L) 98 - 109 mmol/L CARBON DIOXIDE 24 22 - 32 mmol/L ANION GAP 11 5 - 15 mmol/L BLOOD UREA NITROGEN 10 5 - 23 mg/dL CREATININE 1.08 0.70 - 1.20 mg/dL GLUCOSE 171 (H) 65 - 99 mg/dL CALCIUM 8.2 (L) 8.5 - 10.5 mg/dL EGFR Non-Race Dependent 86 >=60 ml/min/1.73sq.m Liver panel Collection Time: 01/19/25 1:16 PM Result Value Ref Range TOTAL PROTEIN 7.1 6.0 - 8.0 g/dL ALBUMIN 3.4 3.2 - 5.3 g/dL BILIRUBIN,TOTAL 1.0 0.3 - 1.2 mg/dL ALKALINE PHOSPHATASE 69 39 - 130 U/L AST 26 <=41 U/L ALT 34 <=40 U/L BILIRUBIN,DIRECT 0.4 <=0.4 mg/dL Lipase Collection Time: 01/19/25 1:16 PM Result Value Ref Range LIPASE 45 (H) 17 - 40 U/L Troponin I, High Sensitivity Collection Time: 01/19/25 1:16 PM Narrative The following orders were created for panel order Troponin I, High Sensitivity. Procedure Abnormality Status --------- ------ Troponin I, High Sensiti...[[id number]] Normal Final result Troponin I, High Sensiti...[[id number]] Normal Final result Please view results for these tests on the individual orders. Troponin I, High Sensitivity 0 Hour Collection Time: 01/19/25 1:16 PM Result Value Ref Range TROPONIN I, HIGH SENSITIVITY 3 <21 ng/L Extra Tubes Collection Time: 01/19/25 1:16 PM Narrative The following orders were created for panel order Extra Tubes. Procedure Abnormality Status --------- ------ Light Blue Top[[id number]] Final result Please view results for these tests on the individual orders. Light Blue Top Collection Time: 01/19/25 1:16 PM Result Value Ref Range Extra Tube Auto Resulted Iron and TIBC Collection Time: 01/19/25 1:16 PM Result Value Ref Range IRON 12 (L) 50 - 212 ug/dL IRON BINDING 388 250 - 425 ug/dL IRON SATURATION 3 (L) 20 - 50 % SATURATION Ferritin Collection Time: 01/19/25 1:16 PM Result Value Ref Range FERRITIN 83 24 - 336 ng/mL ABO Rh Repeat Collection Time: 01/19/25 1:16 PM Result Value Ref Range ABO O RH Negative Extra Urine Collection Time: 01/19/25 1:17 PM Specimen: Urine, Clean Catch Midstream Result Value Ref Range Extra Tube Auto Resulted Extra Urine Culture Collection Time: 01/19/25 1:17 PM Specimen: Urine, Clean Catch Midstream Result Value Ref Range Extra Tube Auto Resulted Extra Urine [place] Collection Time: 01/19/25 1:17 PM Specimen: Urine, Clean Catch Midstream Result Value Ref Range Extra Tube Auto Resulted SARS/FLU A+B/RSV by NAAT/Molecular (M4RT Collection Tube) Collection Time: 01/19/25 1:17 PM Result Value Ref Range FLU A PCR Negative Negative FLU B PCR Negative Negative RSV BY PCR Negative Negative SARS COV 2 BY PCR Not Detected Not Detected Narrative The Xpert Xpress SARS-CoV-2/Flu/RSV Plus test is [...] operators who are performing tests using either [employer] [facility] [facility] or [facility] systems and islimited to laboratories that meet the CLIA requirements to perform high and moderate complexity tests. The Xpert Xpress SARS-CoV-2/Flu/RSV Plus is only for use under the Food and Drug Administration's Emergency Use Authorization. Results are for the simultaneous detection and differentiation of SARS-CoV-2, influenza A, influenza B and RSV nucleic acids in clinical specimens. SARS-CoV-2, influenzaA, influenza B and RSV RNA identified by [...] with clinical observations, patient history and epidemiological information.An Invalid result may occur with specimen-associated inhibition unable to be resolved with specimenrepeat. Fact Sheet for Healthcare Providers: https://www.fda.gov/media/800177/download Fact Sheet for Patients: https://www.fda.gov/media/220900/download Troponin I, High Sensitivity 1 Hour Collection Time: 01/19/25 2:15 PM Result Value Ref Range TROPONIN I, HIGH SENSITIVITY 3 <21 ng/L Type and screen(includes indirect noris) Collection Time: 01/19/25 2:15 PM Result Value Ref Range ABO O RH Negative Antibody Screen Negative BB ARC TUBES Collection Time: 01/19/25 2:15 PM Result Value Ref Range Extra Tube Auto Resulted POCT Nursing Urine Macroscopic UA Collection Time: 01/19/25 3:31 PM Result Value Ref Range POC Urine Specific [place] 1.015 1.010, 1.015, 1.020, 1.025 POC Urine Leukocyte Esterase Small (A) Negative POC Urine Nitrite Negative Negative POC Urine pH 6.0 5.0, 6.0, 6.5, 7.0, 7.5, 8.0, 8.5, 5.5 POC Urine Protein 30 mg/dL (A) Negative POC Urine Glucose Negative Negative POC Urine Ketones Negative Negative POC Urine Urobilinogen >=8.0 E.U./dL POC Urine Bilirubin Small (A) Negative POC Urine Blood/HGB Trace (A) Negative Comprehensive metabolic panel Collection Time: 01/20/25 5:50 AM Result Value Ref Range SODIUM 130 (L) 134 - 146 mmol/L POTASSIUM 3.8 3.5 - 5.0 mmol/L CHLORIDE 96 (L) 98 - 109 mmol/L CARBON DIOXIDE 26 22 - 32 mmol/L ANION GAP 8 5 - 15 mmol/L BLOOD UREA NITROGEN 11 5 - 23 mg/dL CREATININE 1.15 0.70 - 1.20 mg/dL GLUCOSE 102 (H) 65 - 99 mg/dL CALCIUM 8.0 (L) 8.5 - 10.5 mg/dL TOTAL PROTEIN 6.5 6.0 - 8.0 g/dL ALBUMIN 3.1 (L) 3.2 - 5.3 g/dL ALKALINE PHOSPHATASE 115 39 - 130 U/L AST 55 (H) <=41 U/L ALT 51 (H) <=40 U/L BILIRUBIN,TOTAL 1.6 (H) 0.3 - 1.2 mg/dL EGFR Non-Race Dependent 79 >=60 ml/min/1.73sq.m Magnesium Collection Time: 01/20/25 5:50 AM Result Value Ref Range MAGNESIUM 2.0 1.8 - 2.6 mg/dL CBC auto differential Collection Time: 01/20/25 5:50 AM Result Value Ref Range WBC 8.2 4 - 11 X10^9/L RBC Count 3.46 (L) 4.1 - 5.7 X10^12/L Hemoglobin 8.4 (L) 13 - 17 g/dL Hematocrit 25.4 (L) 39 - 50 % MCV 73 (L) 80 - 100 fL MCH 24.3 (L) 27 - 34 pg MCHC 33.2 32 - 36 g/dL RDW 16.0 (H) 11.5 - 15 % Platelet Count 208 150 - 450 X10^9/L MPV 7.7 7 - 12 fL Neutrophils % 79.9 % Lymphocytes % 6.7 % Monocytes % 12.4 % Eosinophils % 0.7 % Basophils % 0.3 % Neutrophils Absolute (A) 6.5 1.5 - 6.6 X10^9/L Lymphocytes Absolute 0.5 (L) 1.0 - 3.5 X10^9/L Monocytes Absolute 1.0 (H) 0.0 - 0.9 X10^9/L Eosinophils Absolute 0.1 0.0 - 0.4 X10^9/L Basophils Absolute 0.0 0.0 - 0.2 X10^9/L Differential Type AUTOMATED DIFFERENTIAL Radiology CT brain without contrast Result Date: 01/19/2025 Narrative: CT BRAIN WO CONT: 01/19/2025 1:57 PM Clinical: Vertigo. EXAM: NONCONTRAST BRAIN CT Comparison: none Procedure: Multi-detector CT performed through the brain without IV contrast. Automatic exposure control utilized. All CT scans at this facility use dose modulation, iterative reconstruction, and/or weight based dosing when appropriate to reduce radiation dose to as low as reasonably achievable. Findings: There is no intracranial hemorrhage, extra- axial fluid collection, mass effect, midline shift, or hydrocephalus. Patent basal cisterns. MRI is more sensitive for evaluation of acuteischemia and subtle parenchymal abnormalities. IMPRESSION: * No acute intracranial abnormality by CT. Finalized by Saleem Dalton MD on 01/19/2025 2:[address] abdomen and pelvis with contrast Result Date: 01/17/2025 Narrative: ABDOMEN AND PELVIS CT WITH CONTRAST HISTORY: Abdominal pain, nausea and vomiting COMPARISON: None. TECHNIQUE: CT abdomen and pelvis was performed. Axial images were obtained following the uneventful administration of 100 cc Omnipaque 300 nonionic intravenous contrast. Coronal and sagittal reformatted images were obtained and reviewed. Automated exposure control was utilized. FINDINGS: Atelectatic changes in lung bases without significant airspace consolidation or pleural fluid collection. Visible heart is unremarkable. Liver demonstrates no solid mass or intrahepatic biliary ductaldilatation. Gallbladder surgically absent. Coarse calcifications in the [...] No significant enlargement of retroperitoneal or pelvic lymphnodes. No acute osseous abnormality. IMPRESSION: * No definitive acute pathologic process. 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 * Splenomegaly All CT scans at this facility use dose modulation, iterative reconstruction, and/or weight based dosing when appropriate to reduce radiation dose to as low as reasonably achievable. Finalized by Afshin Mahmood MD on 01/17/2025 10:23 PM HOSPITAL PROBLEM LIST Principal Problem: Symptomatic anemia Active Problems: Dizziness Acute cystitis with hematuria Hypokalemia Hyponatremia Hypochloremia Elevated LFTs Hepatic steatosis ASSESSMENT & PLAN Anemia unspecified patient reports he had at least 2 dark tarry stools concern for GI bleed upper Dizziness suspect related to anemia and electrolyte imbalances -trend H&H -check occult -iron 12 iron sats 3 start IV Venofer -does look like back January 17 hemoglobin was 9.7 downward trend since>8.8>8.4 -check orthostatics -on Protonix drip and a regular diet change to clears -add normal saline at 50 an hour -add Antivert p.r.n. -may end up needing scope on Monday will see how his labs trend + did note labs from January 2024 hemoglobin was 11 at that time. Patient ill- appearing pale wouldbenefit from scope did contact General surgery she reports she is off this week discussed with attending plan to transfer to [facility] -did call and review review of systems and plan with attending Acute cystitis with hematuria -culture added Rocephin initiated 01/20/2025 Hypokalemia Hyponatremia Hypochloremia -suspect all related to poor appetite and poor oral intake -hold hydrochlorothiazide start gentle fluids -check TSH, urine Osmo urine sodium serum Osmo Elevated LFTs with hepatic steatosis Chronic pancreatitis -suspect reactive due to dehydration add fluids -check hepatitis panel -hx of Chronic pancreatitis with findings consistent with 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 Had CHOLANGIOGRAM in 2019 Didconfirm similar findings from 2019 also noted fatty liver -could not locate anything from GI recently -celiac plexus block in October 2018 -continue on Creon if he is still taking will need to confirm Sepsis suspected, no-not clinically evident at this time. Chart reviewed. Admission orders placed. Home medications reconciled. VTE chemoprophylaxis: None secondary to anemia. GI prophylaxis: add pantoprazole. PT/OT to evaluate and treat. Not needed independent DC planning: Full code. Medically Ready for Discharge: Anticipated Today to [facility] will need colonoscopy/ EGD make NPO after midnight downgrade to clear liquids start IV fluids Johnna Garcias APRN-WAI 01/20/2025 7:37 AM [facility] Internal Medicine 7AM-7PM & 7PM-7AM: EpicChat or page through [employer]. NEVILLE Cloud 01/20/25 1326 Physician Attestation I, Napoleon Klein MD, personally performed a face to face diagnostic evaluation on this patient. I have reviewed the note authored by the advance practice provider including history, review of systems,physical examination,medical decision making and agree with the assessment and plan as written. I have seen and evaluated the patient, I have repeated the marroquin portions of the physical exam and concur with the LUIGI findings. I have reviewed all laboratory findings and imaging reports/films. I agree with the plan as noted. documented in this encounter Consult Notes * VIVIAN Trujillo - 01/20/2025 1:53 PM ESTAssociated Order(s): IP CONSULT TO NUTRITION SERVICES Summary: Nutrition Assessment NUTRITION ADULT INITIAL EVALUATION NUTRITION ASSESSMENT: Consult received regarding predicted sub-optimal PO intake r/t GI symptoms. Admit Diagnosis: Principal Problem: Symptomatic anemia Active Problems: Dizziness Acute cystitis with hematuria Hypokalemia Hyponatremia Hypochloremia Elevated LFTs Hepatic steatosis GI bleed Past Medical History: Past Medical History: Diagnosis Date Hypertension Past Surgical History: Past Surgical History: Procedure Laterality Date CYST REMOVAL cyst removal pancreas Social/ Cognitive/ Economic: Pt lives alone. Planing transfer to another higher level of care. Allergies: No Known Allergies Nutrition Focused Physical Findings 1. Extremities, Muscles, and Bones 2. Skin: Skin Color: Pale (01/20/25 0800) Skin Temp: Warm (01/20/25 08) 3. Wound: 4. Gastrointestinal: Abdomen Assessment: Soft; Nondistended (01/20/25 0800) Last BM Date: 01/17/25 (01/20/25 0800) RUQ Bowel Sounds: Active (01/20/25 0800) LUQ Bowel Sounds: Active (01/20/25 08) RLQ Bowel Sounds: Active (01/20/25 0800) LLQ Bowel Sounds: Active (01/20/25 08) 5. Edema: 6. Overall Appearance: well nourished Labs: Results from last 3 days Lab Units 01/20/25 0550 01/19/25 1316 01/17/25 2347 01/17/25 1930 SODIUM mmol/L 130* 130* 130* 127* POTASSIUM mmol/L 3.8 3.1* 3.5 2.9* CHLORIDE mmol/L 96* 95* 97* 87* CO2 mmol/L 26 24 26 27 BUN mg/dL 11 10 11 9 CREATININE mg/dL 1.15 1.08 1.05 1.18 CALCIUM mg/dL 8.0* 8.2* 7.8* 8.7 ALBUMIN g/dL 3.1* 3.4 -- 3.9 ALK PHOS U/L 115 69 -- 77 ALT U/L 51* 34 -- 48* AST U/L 55* 26 -- 37 Results from last 7 days Lab Units 01/20/25 0550 01/19/25 1316 01/17/25 2347 01/17/25 1930 GLUCOSE mg/dL 102* 171* 108* 126* Results from last 3 days Lab Units 01/20/25 0550 01/19/25 1316 01/17/25 1930 WBC X10^9/L 8.2 6.7 10.9 HEMOGLOBIN g/dL 8.4* 8.8* 9.7* HEMATOCRIT % 25.4* 26.7* 30.2* PLATELETS X10^9/L 208 197 206 MCV fL 73* 73* 73* Results from last 3 days Lab Units 01/20/25 0550 MAGNESIUM mg/dL 2.0 No data from last 3 days. Lab Results Component Value Date HGBA1C 5.5 01/20/2025 Lab Results Component Value Date IRON 12 (L) 01/19/2025 TIBC 388 01/19/2025 FERRITIN 83 01/19/2025 Lab Results Component Value Date IRONSAT 3 (L) 01/19/2025 No results found for: CHOL No results found for: CHDL No results found for: HDL No results found for: LDLCALC No results found for: TRIG No results found for: VERYLOWLIP No results found for: [id number] No results found for: FOLATE No results found for: VITD25 Medications/ Parenteral: Medications Prior to Admission Medication Sig Dispense Refill Last Dose/Taking hydroCHLOROthiazide (HYDRODIURIL) 12.5 mg tablet Take 1 tablet (12.5 mg total) by mouth daily. hydrOXYzine (ATARAX) 25 mg tablet Take 1 tablet (25 mg total) by mouth 2 (two) times a day as needed for itching. lidocaine (LIDODERM) 5 % Place 1 patch on the skin daily. Remove & Discard patch within 12 hours or as directed by 30 patch 0 xxrhxx-quludoxj-bxgyygb (CREON) 3,000-9,500- 15,000 unit capsule,delayed release(DR/EC) Take by mouth. ondansetron ODT (ZOFRAN ODT) 4 mg disintegrating tablet Dissolve 1 tablet (4 mg total) on tongue every 8 (eight) hours as needed for nausea for up to 6 doses. 6 tablet 0 pantoprazole (PROTONIX) 20 mg EC tablet Take 1 tablet (20 mg total) by mouth in the morning. [] potassium chloride (K-TAB,KLOR-CON) 10 MEQ CR tablet Take 2 tablets (20 mEq total) by mouth in the morning and 2 tablets (20 mEq total) before bedtime. Do all this for 2 days. 8 tablet 0 sertraline (ZOLOFT) 50 mg tablet Take 1 tablet (50 mg total) by mouth in the morning. traZODone (DESYREL) 50 mg tablet Take 1 tablet (50 mg total) by mouth daily as needed. Current Facility-Administered Medications Medication Dose Route Frequency Provider Last Rate Last Admin acetaminophen (TYLENOL) tablet 650 mg 650 mg oral Q6H PRN NEVILLE Bhandari alum-mag hydroxide-simeth (MAALOX) 200-200-20 mg/5 mL suspension 30 mL 30 mL oral PCHSP NEVILLE Bhandari cefTRIAXone (ROCEPHIN) 1,000 mg in sodium chloride 0.9 % 50 mL IVPB W/ADAPTER 1,000 mg intravenous Q24H NEVILLE Bhandari iron sucrose (VENOFER) 200 mg in sodium chloride 0.9 % 100 mL IVPB 200 mg intravenous Daily NEVILLE Cloud Stopped at 01/20/25 0946 magnesium sulfate IVPB 2000 mg/50 mL in iso-osmotic water (40 mg/mL premix) 2,000 mg intravenous PRN Gabe Uribe, PLASTICS SEASONER OPERATOR-SUPERVISOR [employer] magnesium sulfate IVPB 4000 mg/100 mL in iso-osmotic water (40 mg/mL premix) 4,000 mg intravenous PRN Gabe Uribe, PLASTICS SEASONER OPERATOR-SUPERVISOR [employer]ATION meclizine (ANTIVERT) tablet 25 mg 25 mg oral TID PRN Johnna Garcias PLASTICS SEASONER OPERATOR-SUPERVISOR [employer]ATION 25 mg at 01/20/25 0756 morphine injection 2 mg 2 mg intravenous Q4H PRN Gabe Uribe, PLASTICS SEASONER OPERATOR-SUPERVISOR [employer]ATION 2 mg at 01/20/25 1315 ondansetron (PF) (ZOFRAN) injection 4 mg 4 mg intravenous Q4H PRN Gabe Uribe, PLASTICS SEASONER OPERATOR-SUPERVISOR [employer] INSTALLATION pantoprazole (PROTONIX) 80 mg in sodium chloride 0.9 % 100 mL (0.8 mg/mL) infusion 8 mg/hr intravenous Continuous Gabe Uribe APRN-SUPERVISOR [employer] 10 mL/hr at 01/20/25 1143 8 mg/hr at 01/20/25 1143 potassium chloride (K-TAB,KLOR-CON) CR tablet 30-40 mEq 30-40 mEq oral PRN Gabe Uribe, PLASTICS SEASONER OPERATOR-SUPERVISOR [employer] 30 mEq at 01/20/25 0911 Or potassium chloride (KAYCIEL) 20 mEq/15 mL solution 30-40 mEq 30-40 mEq oral PRN Gabe Uribe, PLASTICS SEASONER OPERATOR-SUPERVISOR [employer]ATION Or potassium chloride IVPB 10 mEq/100 mL in water (0.1 mEq/mL premix) 10 mEq intravenous PRN Gabe Uribe APRN-SUPERVISOR [employer]ATION sennosides-docusate sodium (SENOKOT-S) 8.6-50 mg 1 tablet 1 tablet oral Q12H PRN Gabe Uribe, PLASTICS SEASONER OPERATOR-SUPERVISOR [employer]ATION sodium chloride 0.9 % flush 3 mL 3 mL intravenous PRN Gabe Uribe, PLASTICS SEASONER OPERATOR-SUPERVISOR [employer]ALLATION sodium chloride 0.9 % flush 3 mL 3 mL intravenous PRN Gabe Uribe, PLASTICS SEASONER OPERATOR-SUPERVISOR [employer]ATION sodium chloride 0.9 % flush 3 mL 3 mL intravenous Q12H ZACK Gabe Uribe, PLASTICS SEASONER OPERATOR- SUPERVISOR [employer]ALLATION 3 mL at 924 sodium chloride 0.9 % infusion 50 mL/hr intravenous Continuous Johnna Garcias APRN-SUPERVISOR [employer]ATION 50 mL/hr at 01/20/25 1143 Rate Verify at 01/20/25 1143 Anthropometrics: Ht Readings from Last 1 Encounters: 01/19/25 190.5 cm (6' 3 ) Wt Readings from Last 1 Encounters: 01/20/25 104.3 kg (229 lb 14.4 oz) Usual Body Weight: Wt Readings from Last 10 Encounters: 01/20/25 104.3 kg (229 lb 14.4 oz) 01/19/25 102.1 kg (225 lb) 01/17/25 102.1 kg (225 lb) 01/17/24 99.8 kg (220 lb) Percent Usual Body Weight: 104% of weight last year [place] Body Weight: 88.5 (01/19/25 2316) Percent Anderson Body Weight: 118% Body mass index is 28.74 kg/m??. BMI Category: Overweight (> or = 25.00) Food/Nutrition- Related History: Pt NPO for scope Dietary Orders (From admission, onward) Start Ordered 01/21/25 0001 Adult diet NPO Diet effective midnight Question: Diet Type: Answer: NPO 01/20/25 1121 01/20/25 0727 Adult diet Clear Liquid Diet effective now Question: Diet Type: Answer: Clear Liquid 01/20/25 0730 Diet Intakes: Percent Meals Eaten (%): 50 (01/20/25 0849) Intake/ Output Last 24 hrs: Intake/Output Summary (Last 24 hours) at 01/20/2025 1353 Last data filed at 01/20/2025 1300 Gross per 24 hour Intake 1323.4 ml Output 1850 ml Net -526.6 ml Last BM Date: 01/17/25 (01/20/25 0800) Oral Supplemental Intake/ Acceptance: n/a Nutrition Education Needs: N/A Comments: pt refused Estimated Needs Based on Comparative Standards: Energy Needs: 2625-4038 kcals daily. Method and weight used: 25-30 kcal/kg ideal body weight Protein Needs: 107-134 grams daily. Method and weight used: 1.2-1.5 gm/kg ideal body weight Fluid Needs: 2670 ml daily. Method weight used: 30 ml/kg ideal body weight Comments: floor needs Malnutrition Status: Malnutrition Present: No Severity of Protein Calorie Malnutrition: n/a NUTRITION DIAGNOSIS: Intake Diagnosis: Predicted suboptimal energy intake (NI 1.4) related to GI symptoms as evidenced by pt reported abdominal pain, n/v/d. Nutrition Prescription: Pt consumed 50% of a Clear Liquid diet this a.m., now NPO. Pt to transfer to [place] for a scope. Pt with h/o chronic pancreatitis and came to ER with GI symptoms which he thought were related to pancreatitis. Pt states that this is not pancreatitis and there is nothing I can do for him. Pt was unwilling to discuss GI symptoms or diet history with marketing copywriter at this time. Hgband Hct trending down, iron = 12, low, iron SAT = 3, low to receive IV Venofer. Pt was taking Creonin the past. Lipase = 32, WNL's down from 45. Sodium, Chloride and Calcium low, receiving supplementation. Liver panel abnormal with h/o fatty liver. NUTRITION INTERVENTIONS: Meals & snacks: NPO, advance diet to gastric soft as tolerance permits Nutrition education: provide education on gastric soft diet prior to d/c Goals: Tolerates oral intake RECOMMENDATIONS: Recommend initiating clear liquid diet and advancing to gastric soft as tolerance permits. Will offer nutrition education regarding gastric soft diet prior to d/c. Will monitor PO tolerance as diet initiated and advanced. Nutrition Monitoring and Evaluation: Fluid/Beverage Intake (1.2.1), Food Intake (1.2.2), Food and Nutrition Knowledge/Skill (4.1), and Weight Change, Lab Values and POC Rosalinda Dove RD, LD, [facility] documented in this encounter Miscellaneous Notes * Plan of Care - Georgiana Vega RN - 01/20/2025 8:28 PM EST Problem: Pain Goal: Patient goal is pain score less than 4, able to rest, and participant in treatment plan as appropriate Description: INTERVENTIONS: 1. Encourage patient or legal lead customer service representative to report early pain and ask for pain medicine when needed 2. Assess pain using appropriate pain scale and include the scale used when documenting 3. Administer analgesics based on type and severity of pain and evaluate response within appropriate time frame 4. Implement non-pharmacological measures as appropriate and evaluate response 5. Consider cultural and social influences on pain and pain management 6. Notify LIP if interventions ineffective or patient reports new pain 7. Monitor vital signs including pulse ox, end-tidal CO2 based on pain intervention 8. Reassess pain per policy 9. Teach patient or legal lead customer service representative interventions for comforting Outcome: Progressing Note: Evaluation of progress towards goal: Pt able to report pain according to 0/10 pain scale. Medicating patient for pain per orders. Problem: Safety Goal: Patient will be injury free during hospitalization Description: INTERVENTIONS: 1. Assess patient's risk for falls and implement fall prevention plan of care per policy 2. Provide and maintain a safe environment 3. Proper use of double Identifiers 4. Medication administration using the 5 rights 5. Hand hygiene 6. Specimens are labeled at the bedside 7. Instruct patient/ patient lead customer service representative about use of safety devices 8. Include patient/ patient lead customer service representative in decisions related to safety Outcome: Progressing Note: Evaluation of progress towards goal: Pt's risk for falls assessed and fall prevention implemented as needed, safe environment provided and maintained, hand hygiene completed. Problem: Infection Goal: Absence of infection during hospitalization Description: INTERVENTIONS 1. Assess and monitor for signs and symptoms of infection. 2. Monitor lab/diagnostic results. 3. Monitor all insertion sites i.e., indwelling lines, tubes and drains. 4. Monitor endotracheal (as able) and nasal secretions for changes in amount and color. 5. Administer medications as ordered. 6. Instruct and encourage patient and family to use good hand hygiene technique. 7. Identify and instruct patient/patient lead customer service representative in use of appropriate isolation precautionsfor identified infection/symptoms. 8. Provide and discuss with patient/patient lead customer service representative on educational MDRO sheet. 9. Encourage and monitor nutritional status daily and consult customer retention representative if indicated. 10. Implement neutropenic guidelines as needed. Outcome: Progressing Note: Evaluation of progress towards goal: Patient VS WNL, remains afebrile for shift. Continue to monitor. Problem: Knowledge Deficit Goal: Patient/patient lead customer service representative demonstrates understanding of disease process, treatment plan,medications, and discharge instructions Description: INTERVENTIONS 1. Complete learning assessment and assess knowledge base 2. Provide teaching at level of understanding 3. Provide teaching via preferred learning method(s) Outcome: Progressing Note: Evaluation of progress towards goal: POC discussed with patient. Questions answered PRN. Problem: Discharge Planning Goal: Discharge to post-acute care, other facility, or home with appropriate resources Description: Patient's goal is: INTERVENTIONS 1. Conduct assessment to determine patient/family and health care team treatment goals, and need for post-acute services based on payer coverage, community resources, and patient preferences, and barriers to discharge 2. Coordinate with Social work, Care Navigation, and Utilization Review to arrange appropriate level of services according to patient's needs based on patient preference and payer coverage in collaboration with the physician and health care team 3. Address psychosocial, clinical, and financial barriers to discharge as identified in assessment in conjunction with the patient/family and health care team 4. Consult appropriate ancillary services (i.e.. PT/OT/ST, etc) as needed 5. Communicate with and update the patient/family, physician, and health care team regarding progress on the discharge plan 6. Identify discharge learning needs (meds, wound care, etc). 7. Arrange for needed discharge transportation as appropriate Outcome: Progressing Note: Evaluation of progress towards goal: Continue to assess for when appropriate. * Discharge Planning Note - KUNAL Cai - 01/20/2025 10:17 AM EST Images from the original note were not included. Initial Assessment Discharge Planning Assessment [facility] Mccray Admit Status: Inpatient Meet: Unknown Readmission Risk: 14%. Date of Admission: 01/19/2025 GMLOS: unknown Target Discharge Date: unknown Discharge Planning Assessment completed at bedside. Warp Hand identified self and role to the patient.Patient is agreeable to the assessment and discussion of a safe discharge plan. Initial Assessment Flowsheet Row Most Recent Value Patient Information Initial Pre-Hospitalization Assessment Completed? Completed Primary Caregiver Self Discharge Planning Living Arrangements Alone Assistance Needed patient is independent with ADLs and mobility. He is currently employed and does drive. He does not endorse any financial barriers to food, medications, or utilities. Type of Residence Private residence Home Care Services No Community Agencies Currently Utilized None Community Referrals / Resources Provided Denies needs Does The Patient Have Existing Home DME? No Will the patient need DME at discharge? 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 Never True Within the past 12 months the food we bought just didn't last and we didn't have money to get more.Never True Hunger Screening Complete? Yes Warm Handoff Complete Caregiver/Family Member Caregiver/Support System Limitations Caregiver/Support Systems Limitations (Check All That Apply) No Caregiver Needed Patient/Caregiver Goals Patient/Caregiver Goals Home No Needs Home No Needs Alone Community Provider Referral Community Provider Referral None Services Requested Patient expects to be discharged to: Home with self care Does the patient wish to have family/friend/caregiver involved in their discharge planning? No, thepatient does not wish to have family/friend/caregiver involved in their discharge planning Discharge Disposition Home with self care Does the patient need discharge transportation arranged? No DC Planning Complete Discharge Milestones Yes 3-Midnight [facility] PCP: Tina Willis NP Consulting Providers this admission: none Patient will make his own follow up appointments: yes Patient Goals: Goals Home with self care (pt-stated) Evaluation of progress towards goal: Patient will return home with self care Plan to prevent readmission: follow up with PCP Patient does not endorse any questions at this time. Patient Discharge Plan: Home with self care Follow up with Tina Willis PCP within 7-10 days. Patient prefers to schedule own appointment. - KUNAL Cai 01/20/25 10:20 AM * Plan of Care - Georgiana Vega RN - 01/19/2025 11:40 PM EST Problem: Pain Goal: Patient goal is pain score less than 4, able to rest, and participant in treatment plan as appropriate Description: INTERVENTIONS: 1. Encourage patient or legal lead customer service representative to report early pain and ask for pain medicine when needed 2. Assess pain using appropriate pain scale and include the scale used when documenting 3. Administer analgesics based on type and severity of pain and evaluate response within appropriate time frame 4. Implement non-pharmacological measures as appropriate and evaluate response 5. Consider cultural and social influences on pain and pain management 6. Notify LIP if interventions ineffective or patient reports new pain 7. Monitor vital signs including pulse ox, end-tidal CO2 based on pain intervention 8. Reassess pain per policy 9. Teach patient or legal lead customer service representative interventions for comforting Outcome: Progressing Note: Evaluation of progress towards goal: Pt able to report pain according to 0/10 pain scale. Medicating patient for pain per orders. Problem: Safety Goal: Patient will be injury free during hospitalization Description: INTERVENTIONS: 1. Assess patient's risk for falls and implement fall prevention plan of care per policy 2. Provide and maintain a safe environment 3. Proper use of double Identifiers 4. Medication administration using the 5 rights 5. Hand hygiene 6. Specimens are labeled at the bedside 7. Instruct patient/ patient lead customer service representative about use of safety devices 8. Include patient/ patient lead customer service representative in decisions related to safety Outcome: Progressing Note: Evaluation of progress towards goal: Pt's risk for falls assessed and fall prevention implemented as needed, safe environment provided and maintained, hand hygiene completed. Problem: Infection Goal: Absence of infection during hospitalization Description: INTERVENTIONS 1. Assess and monitor for signs and symptoms of infection. 2. Monitor lab/diagnostic results. 3. Monitor all insertion sites i.e., indwelling lines, tubes and drains. 4. Monitor endotracheal (as able) and nasal secretions for changes in amount and color. 5. Administer medications as ordered. 6. Instruct and encourage patient and family to use good hand hygiene technique. 7. Identify and instruct patient/patient lead customer service representative in use of appropriate isolation precautionsfor identified infection/symptoms. 8. Provide and discuss with patient/patient lead customer service representative on educational MDRO sheet. 9. Encourage and monitor nutritional status daily and consult customer retention representative if indicated. 10. Implement neutropenic guidelines as needed. Outcome: Progressing Note: Evaluation of progress towards goal: Patient VS WNL, remains afebrile for shift. Continue to monitor. Problem: Knowledge Deficit Goal: Patient/patient lead customer service representative demonstrates understanding of disease process, treatment plan,medications, and discharge instructions Description: INTERVENTIONS 1. Complete learning assessment and assess knowledge base 2. Provide teaching at level of understanding 3. Provide teaching via preferred learning method(s) Outcome: Progressing Note: Evaluation of progress towards goal: POC discussed with patient. Questions answered PRN. Problem: Discharge Planning Goal: Discharge to post-acute care, other facility, or home with appropriate resources Description: Patient's goal is: INTERVENTIONS 1. Conduct assessment to determine patient/family and health care team treatment goals, and need for post-acute services based on payer coverage, community resources, and patient preferences, and barriers to discharge 2. Coordinate with Social work, Care Navigation, and Utilization Review to arrange appropriate level of services according to patient's needs based on patient preference and payer coverage in collaboration with the physician and health care team 3. Address psychosocial, clinical, and financial barriers to discharge as identified in assessment in conjunction with the patient/family and health care team 4. Consult appropriate ancillary services (i.e.. PT/OT/ST, etc) as needed 5. Communicate with and update the patient/family, physician, and health care team regarding progress on the discharge plan 6. Identify discharge learning needs (meds, wound care, etc). 7. Arrange for needed discharge transportation as appropriate Outcome: Progressing Note: Evaluation of progress towards goal: Continue to assess for when appropriate. documented in this encounter Plan of Treatment Not on file documented as of this encounter Goals GoalPatient Goal TypeAssociated ProblemsRecent ProgressPatient-Stated?Author Home Latrice Prakash RN Note: Evaluation of progress towards goal: Patient plans to discharge Home with Self Care. documented as of this encounter Procedures Procedure NamePriorityDate/TimeAssociated DiagnosisCommentsHEMOGLOBIN AND HEMATOCRIT, ENAAJExqkiqb32/17/2025 5:26 PM EST DRUG SCREEN, UIHKKUjxedto02/17/2025 9:18 AM EST SODIUM, URINE, DINSZHZgeihyw32/17/2025 9:18 AM EST OSMOLALITY, AEBLTVxfdlgw80/17/2025 9:18 AM EST URINE IIONGCJXrbzwtd45/17/2025 9:18 AM EST TSH WITH REFLEXAdd-On01/20/2025 5:50 AM EST CBC WITH AUTO ZZQSDOUEMEIOJgaajwf30/17/2025 5:50 AM EST VWTLCOLHJOuqmqtb08/17/2025 5:50 AM EST LIPASEAdd-On01/20/2025 5:50 AM EST HEMOGLOBIN G5PUau-Mu42/17/2025 5:50 AM EST COMPREHENSIVE METABOLIC EQUSYEbxpifs13/17/2025 5:50 AM EST HEPATITIS PANEL, HWRWJVoowdvz17/17/2025 5:45 AM EST OSMOLALITYAdd-On01/20/2025 5:45 AM EST documented in this encounter Results * (ABNORMAL) Hemoglobin and hematocrit, blood (01/20/2025 5:26 PM EST)Component ValueRef RangeTest MethodAnalysis TimePerformed AtPathologist Signature Hemoglobin8.1(L)13 - 17 g/dL01/20/2025 5:[address] [facility] Aybuhmbrtw36.9(L)39 - 50 %01/20/2025 5:[address] [facility] Specimen (Source)Anatomical Location / LateralityCollection Method / Volume Collection TimeReceived TimeBloodVenous blood / UnknownVenipuncture / Unknown 01/20/2025 5:26 PM EST01/20/2025 5:28 PM EST Narrative Authorizing ProviderResult TypeResult StatusRachel Katerine [place]-CNPLAB BLOOD ORDERABLESFinal ResultPerforming OrganizationAddressCity/State/[facility] [place] [address], * (ABNORMAL) Drug Screen, Urine (01/20/2025 9:18 AM EST)ComponentValueRef Range Test MethodAnalysis TimePerformed AtPathologist SignatureAMPHETAMINE/METHAMP JwebqkdrFhwmmqzd18/17/2025 10:[address] [facility] [address] [facility]: AMPH/METH screening cut off = 1000 ng/mLCOCAINE METABOLITENegativeNegative 01/20/2025 10:[address] [facility]:Cocaine screening cut off value = 300 ng/xGUCRQRVAEipgevisVqleokhx21/17/2025 10:11 AM [facility]Ecstasy screening cut off value = 500 ng/mL PUOZQZURWUsbfdlmoQlgkpyfx43/17/2025 10:[address] [facility] Comment:Methadone screening cut off value = 300 ng/mL.OPIATESPositive(A) Xcgctwdu51/17/2025 10:[address] [address] [facility]: Opiates screening cut off value = 300 ng/mL This test is used for the detection of codeine, hydrocodone (>1000 ng/mL), morphine and hydromorphone (>900 ng/mL) in urine. HDKWHIBXWIevfxjbzVebydmgn25/17/2025 10:[address] [facility] Comment: Oxycodone screening cut off value = 300 ng/mL This test is used for the detection of oxycodone and oxymorphone in urine. XMBUMERQLUFTXGnxhcrggTkjfgogp70/17/2025 10:[address] [facility] Comment:Phencyclidine screening cut off value = 25 ng/mLCANNABINOIDSNegative Onyaoowu55/17/2025 10:[address] [address] [facility]: Cannabinoids/THC screening cut off value = 50 ng/mLUrine BarbituratesNegative Nwoyusqy00/17/2025 10:[address] [facility]Comment:Barbiturates screening cut off value = 200 ng/wDDCIPRCVVGOEAWRUMehswcopYmhrkjxs16/17/2025 10:[address] [facility]:Benzodiazepines screening cut off value = 200 ng/mLSpecimen (Source)Anatomical Location / LateralityCollection Method / VolumeCollection TimeReceived TimeUrineUrine specimen collection, clean catch / Vgbucgk0201/20/2025 9:18 AM EST01/20/2025 9:27 AM EST Narrative [facility] - 01/20/2025 10:11 AM EST Confirmation available upon request. Authorizing ProviderResult TypeResult StatusRachel Ragle PLASTICS SEASONER OPERATOR-CNPURINE ORDERABLESFinal ResultPerforming OrganizationAddressCity/State/ZIP CodePhone Number [address] [address], * Osmolality, urine (01/20/2025 9:18 AM EST)ComponentValueRef RangeTest Method Analysis TimePerformed AtPathologist SignatureURINE [id number] - 1,300 mOsm/kg H201/20/2025 2:06 PM [facility] (Source)Anatomical Location / LateralityCollection Method / VolumeCollection TimeReceived TimeUrineUrine specimen collection, clean catch / Unknown 01/20/2025 9:18 AM EST01/20/2025 9:27 AM EST Narrative Authorizing ProviderResult TypeResult StatusRachel Ragle PLASTICS SEASONER OPERATOR-CNPURINE ORDERABLESFinal ResultPerforming OrganizationAddressCity/State/ZIP CodePhone Number [facility] [address] [place] [address], * Sodium, urine, random (01/20/2025 9:18 AM EST)ComponentValueRef RangeTest MethodAnalysis TimePerformed AtPathologist SignatureURINE SODIUM,MVEELZ27 mmol/L103/22/2024 2:21 PM [facility]YSpecimen (Source)Anatomical Location / LateralityCollection Method / VolumeCollection TimeReceived TimeUrineUrine specimen collection, clean catch / Unknown 01/20/2025 9:18 AM EST01/20/2025 9:27 AM EST Narrative Authorizing ProviderResult TypeResult StatusRachel Ragle PLASTICS SEASONER OPERATOR-CNPURINE ORDERABLESFinal ResultPerforming OrganizationAddressCity/State/ZIP CodePhone Number [facility] [address] [place] [address], * Urine Culture Urine, Clean Catch Midstream (01/20/2025 9:18 AM EST)Component ValueRef RangeTest MethodAnalysis TimePerformed AtPathologist SignatureCULTURE RESULTS<10,000 ORGANISMS/mL NORMAL URO GENITAL FLORA01/21/2025 8:18 AM EST [facility] (Source)Anatomical Location / LateralityCollection Method / VolumeCollection TimeReceived TimeUrineUrine specimen collection, clean catch / Ykopxqc9901/20/2025 9:18 AM EST01/20/2025 9:27 AM EST Narrative Authorizing ProviderResult TypeResult StatusRachel Ragle PLASTICS SEASONER OPERATOR-CNPMICROBIOLOGY - GENERAL ORDERABLESFinal ResultPerforming OrganizationAddressCity/State/ZIP Code Phone Number [facility] [address] [place] [address], [place] [phone] * Hemoglobin A1c (01/20/2025 5:50 AM EST)ComponentValueRef RangeTest Method Analysis TimePerformed AtPathologist SignatureHEMOGLOBIN A1C5.54.4 - 5.6 % 01/20/2025 10:52 AM [facility]Comment: ?ADA Guidelines ?Result ?HgbA1c ? Normal : ? less than 5.7 % ? Prediabetes : ?5.7 % ??to 6.4 % Diabetes : > 6.4 % ?Use with caution in patients with abnormal hemoglobin variants as ??the half-life of red blood cells and in vivo glycation rates are ??affected. EST. AVERAGE MVQACEU985sx/dL01/20/2025 10:52 AM [facility]pec[facility] (Source)Anatomical Location / LateralityCollection Method / VolumeCollection TimeReceived TimeBloodVenous blood / UnknownVenipuncture / Gnkjmbu6801/20/2025 5:50 AM EST01/20/2025 6:04 AM EST Narrative Authorizing ProviderResult TypeResult StatusRachel Katerine MUS[place]-CNPLAB BLOOD ORDERABLESFinal ResultPerforming OrganizationAddressCity/State/ZIP CodePhone Number [facility] [address] [place] [address], * Lipase (01/20/2025 5:50 AM EST)ComponentValueRef RangeTest MethodAnalysis Time Performed AtPathologist ZqukbohcaHQYVZQ4615 - 40 U/L103/22/2024 7:46 AM EST [facility] ([facility])Anatomical Location / Laterality Collection Method / VolumeCollection TimeReceived TimeBloodVenous blood / UnknownVenipuncture / Vqrlvwl7501/20/2025 5:50 AM EST01/20/2025 6:04 AM EST Narrative Authorizing ProviderResult TypeResult StatusRachel Ragle PLASTICS SEASONER OPERATOR-CNPLAB BLOOD ORDERABLESFinal ResultPerforming OrganizationAddressCity/State/[place]IP [place] [address], [place] * TSH with Reflex (01/20/2025 5:50 AM EST)ComponentValueRef RangeTest Method Analysis TimePerformed AtPathologist SignatureTSH2.170.49 - 4.67 uIU/mL 01/20/2025 8:06 AM [facility] ([facility])Anatomical Location / LateralityCollection Method / VolumeCollection TimeReceived Time BloodVenous blood / UnknownVenipuncture / Jgtjjkd0101/20/2025 5:50 AM EST 01/20/2025 6:04 AM EST Narrative Authorizing ProviderResult TypeResult StatusRachel Ragle PLASTICS SEASONER OPERATOR-CNPLAB BLOOD ORDERABLESFinal ResultPerforming OrganizationAddressCity/State/[place]IP [place] [address], [place] * (ABNORMAL) CBC auto differential (01/20/2025 5:50 AM EST)ComponentValueRef RangeTest MethodAnalysis TimePerformed AtPathologist SignatureWBC8.24 - 11 X10^9/L103/22/2024 6:[address] [facility]OSPITALRBC Count3.46(L)4.1 - 5.7 X10^12/L103/22/2024 6:[address] [facility]ITALHemoglobin8.4(L) 13 - 17 g/dL01/20/2025 6:[address] [facility]ITALHematocrit25.4(L) 39 - 50 %01/20/2025 6:[address] [facility]ITALMCV73(L)80 - 100 fL 01/20/2025 6:[address] [facility]ITALMCH24.3(L)27 - 34 pg 01/20/2025 6:09 [facility]ITALMCHC33.232 - 36 g/dL 01/20/2025 6:09 AM [facility] PFHOSROGXGV16.0(H)11.5 - 15 % 01/20/2025 6:09 AM [facility] HOSPITALPlatelet [id number] - 450 X10^9/L103/22/2024 6:[address] [facility]ITALMPV7.77 - 12 fL 01/20/2025 6:09 AM [facility] HOSPITALNeutrophils %79.9%01/20/2025 6:09 AM [facility] HOSPITALLymphocytes %6.7%01/20/2025 6:09 AM [facility] HOSPITALMonocytes %12.4%01/20/2025 6:09 AM [facility] HOSPITALEosinophils %0.7%01/20/2025 6:09 AM [facility] HOSPITALBasophils %0.3%01/20/2025 6:09 AM [facility] HOSPITAL Neutrophils Absolute (A)6.51.5 - 6.6 X10^9/L103/22/2024 6:09 AM [facility] HOSPITALLymphocytes Absolute0.5(L)1.0 - 3.5 X10^9/L103/22/2024 6:09 AM [facility] HOSPITALMonocytes Absolute1.0(H)0.0 - 0.9 X10^9/L 01/20/2025 6:09 AM [facility] HOSPITALEosinophils Absolute0.10.0 - 0.4 X10^9/L103/22/2024 6:09 AM [facility] HOSPITALBasophils Absolute 0.00.0 - 0.2 X10^9/L103/22/2024 6:09 AM [facility] HOSPITAL Differential TypeAUTOMATED OZPORUCMDSIW00/17/2025 6:09 AM [facility]pecimen (Source)Anatomical Location / LateralityCollection Method / VolumeCollection TimeReceived TimeBloodVenous blood / Unknown Venipuncture / Uhiqfmq0601/20/2025 5:50 AM EST01/20/2025 6:04 AM EST Narrative Authorizing ProviderResult TypeResult StatusTaeler Rony PLASTICS SEASONER OPERATOR-Burst MediaLAB BLOOD ORDERABLESFinal ResultPerforming OrganizationAddressCity/State/[place] [address], * Magnesium (01/20/2025 5:50 AM EST)ComponentValueRef RangeTest MethodAnalysis TimePerformed AtPathologist SignatureMAGNESIUM2.01.8 - 2.6 mg/dL01/20/2025 6:26 AM [facility]pecimen (Source)Anatomical Location / LateralityCollection Method / VolumeCollection TimeReceived TimeBloodVenous blood / UnknownVenipuncture / Vwcbgol1101/20/2025 5:50 AM EST01/20/2025 6:04 AM EST Narrative Authorizing ProviderResult TypeResult StatusTaeler Rony PLASTICS SEASONER OPERATOR-CNPLAB BLOOD ORDERABLESFinal ResultPerforming OrganizationAddressCity/State/[place] [address], * (ABNORMAL) Comprehensive metabolic panel (01/20/2025 5:50 AM EST)Component ValueRef RangeTest MethodAnalysis TimePerformed AtPathologist SignatureSODIUM 130(L)134 - 146 mmol/L103/22/2024 6:[address] [facility] POTASSIUM3.83.5 - 5.0 mmol/L103/22/2024 6:[address] [facility] GUIGNTHL68(L)98 - 109 mmol/L103/22/2024 6:[address] [facility] CARBON REGZZOG6847 - 32 mmol/L103/22/2024 6:[address] [facility] HOSPITALANION GAP85 - 15 mmol/L103/22/2024 6:[address] [facility] HOSPITALBLOOD UREA MBHUOVGY295 - 23 mg/dL01/20/2025 6:[address] [facility] HOSPITALCREATININE1.150.70 - 1.20 mg/dL01/20/2025 6:26 AM [facility]ITALComment:METHOD TRACEABLE TO IDMS AMMSTVLMABWHZVB531 (H)65 - 99 mg/dL01/20/2025 6:[address] [facility] HOSPITALCALCIUM8.0(L) 8.5 - 10.5 mg/dL01/20/2025 6:[address] [facility] HOSPITALTOTAL PROTEIN 6.56.0 - 8.0 g/dL01/20/2025 6:[address] [facility] HOSPITALALBUMIN3.1 (L)3.2 - 5.3 g/dL01/20/2025 6:[address] [facility]OSPITALALKALINE QPPOGBTYDUB20346 - 130 U/L103/22/2024 6:[address] [facility]OS[facility]ITALAST 55(H)<=41 U/L103/22/2024 6:[address] [facility]ITALALT51(H)<=40 U/L 01/20/2025 6:[address] [facility] HOSPITALBILIRUBIN,TOTAL1.6(H)0.3 - 1.2 mg/dL01/20/2025 6:[address] [facility] HOSPITALEGFR Non-Race Qefybdxfw36>=60 ml/min/1.73sq.m103/22/2024 6:[address] [facility]OSPITALComment: eGFR not reported due to non-numeric value for Creatinine. Reported eGFR is based on the CKD-EPI 2020 equation that does not use a race coefficient. Specimen (Source)Anatomical Location / LateralityCollection Method / Volume Collection TimeReceived TimeBloodVenous blood / UnknownVenipuncture / Unknown 01/20/2025 5:50 AM EST01/20/2025 6:04 AM EST Narrative Authorizing ProviderResult TypeResult StatusTaeler Rony VIGIL BLOOD ORDERABLESFinal ResultPerforming OrganizationAddressCity/State/ZIP CodePhone Number [address] [address], * (ABNORMAL) Osmolality (01/20/2025 5:45 AM EST)ComponentValueRef RangeTest MethodAnalysis TimePerformed AtPathologist VaeltxxxrTSIRWPFUBJ284(L)280 - 300 mOsm/kg H201/20/2025 10:06 AM [facility]YSpecimen (Source)Anatomical Location / LateralityCollection Method / VolumeCollection TimeReceived TimeBloodVenous blood / UnknownVenipuncture / Iaviwyq1901/20/2025 5:45 AM EST01/20/2025 7:35 AM EST Narrative Authorizing ProviderResult TypeResult StatusRachel Rubyle PLASTICS SEASONER OPERATOR-CNPLAB BLOOD ORDERABLESFinal ResultPerforming OrganizationAddressCity/State/ZIP CodePhone Number [facility] [address] [place] [address], [place] [phone] * Hepatitis panel, acute (01/20/2025 5:45 AM EST)ComponentValueRef RangeTest MethodAnalysis TimePerformed AtPathologist SignatureHEPATITIS B SURF AG Xoy-KzrpenswPxu-Mlvcdhwn50/17/2025 11:04 AM [facility] LABORATORYHEPATITIS A LHZIxh-QfjizawzLgd-Cyezvxwr89/17/2025 11:04 AM [facility] LABORATORYHEPATITIS B CORE MGUXhl-PsnqhhtrAzm-Whjrfust 01/20/2025 11:04 AM [facility] LABORATORYANTI HCV W/PCR REFLX Tjq-TthkzcjvCkw-Ljpcymgp10/17/2025 11:04 AM [facility] LABORATORYComment: If recent infection suspected, recommend repeat testing (>2 months). Hyfuew-xn-hlrhja ratio is <1.0. Specimen (Source)Anatomical Location / LateralityCollection Method / Volume Collection TimeReceived TimeBloodVenous blood / UnknownVenipuncture / Unknown 01/20/2025 5:45 AM EST01/20/2025 7:35 AM EST Narrative Authorizing ProviderResult TypeResult StatusRacheyessy Beltranle PLASTICS SEASONER OPERATOR-CNPLAB BLOOD ORDERABLESFinal ResultPerforming OrganizationAddressCity/State/ZIP CodePhone Number [facility] [address] [place] [address], [place] [phone] documented in this encounter Visit Diagnoses Diagnosis Symptomatic anemia- Primary Dizziness Dizziness and giddiness Acute cystitis with hematuria Hypokalemia Hypopotassemia Hyponatremia Hyposmolality and/or hyponatremia Hypochloremia Electrolyte and fluid disorders not elsewhere classified Elevated LFTs Other abnormal blood chemistry Hepatic steatosis Other chronic nonalcoholic liver disease GI bleed Unspecified, hemorrhage of gastrointestinal tract documented in this encounter Admitting Diagnoses Diagnosis GI bleed Unspecified, hemorrhage of gastrointestinal tract documented in this encounter Administered Medications Medication OrderMAR ActionAction DateDoseRateSite cefTRIAXone (ROCEPHIN) 1,000 mg in sodium chloride 0.9 % 50 mL IVPB W/ADAPTER 1,000 mg, intravenous, at 100 mL/hr, Administer over 30 Minutes, Every 24 hours, First dose (after last modification) on Mon01/20/25 at 1930, For Vial-2-Bag: Attach bag and vial to adapter - Use immediately after activating; dissolve drug prior to administration., Indication: UTI New Bag01/20/2025 8:05 PM EST1,000 mg100 mL/hr iron sucrose (VENOFER) 200 mg in sodium chloride 0.9 % 100 mL IVPB 200 mg, intravenous, at 440 mL/hr, Administer over 15 Minutes, Daily, First dose on Mon01/20/25 [id number], For 3 days, Monitor patient for hypersensitivity reactions for at least 30 minutes after the infusion. AVOID the use of H1 antihistamines, such as diphenhydramine, as this may worsen hypersensitivity reactions. Have resuscitation equipment and medications available. Rate/Dose Pdnlex6501/20/2025 9:44 AM DAC999 mL/uxWspvzxhrd99/17/2025 9:39 AM EST 440 mL/hrNew Bag01/20/2025 9:16 AM OCE829 mg440 mL/hr meclizine (ANTIVERT) tablet 25 mg 25 mg, oral, 3 times daily PRN, dizziness, Starting on Mon01/20/25 at 0727, Look-alike/sound-alikemedication - verify indication for use. Given01/20/2025 7:56 AM EST25 mg morphine injection 2 mg 2 mg, intravenous, Every 4 hours PRN, for breakthrough pain, Starting on Mon01/19/25 at 2348, Look-alike/sound-alike medication - verify indication for use. Given01/21/2025 1:41 AM EST2 qdAhipx7501/20/2025 9:42 PM EST2 azSnlhc3701/20/2025 5:37 PM EST2 mg pantoprazole (PROTONIX) 80 mg in sodium chloride 0.9 % 100 mL (0.8 mg/mL) infusion 8 mg/hr (10 mL/hr), intravenous, Continuous, Starting on Mon01/20/25 at 0000, Look-alike/sound-alike medication - verify indication for use., Indication: Upper GI bleed New Bag01/20/2025 8:21 PM EST8 mg/hr10 mL/hrRate/Dose Crbzlt1501/20/2025 11:43 AM EST8 mg/hr10 mL/vuZmbztshue68/17/2025 11:41 AM EST8 mg/hr10 mL/hr potassium chloride (K-TAB,KLOR-CON) CR tablet 30-40 mEq 30-40 mEq, oral, As needed, Potassium Supplementation, Starting on 01/19/25 at 2349, Progress to oral potassium replacement when patient tolerating oral intake. If dose administered, recheck potassium level 4 hours after last dose. For potassium level 3.4 to 3.8 mmol/L and GFR 30 mL/min or greater=30 mEq. For potassium level 3.1 to 3.3 mmol/L and GFR 30 mL/min or greater=40 mEq. For potassiumlevel 3 mmol/L or less and GFR 30 mL/min or greater=50 mEq. Do not crush or chew. Given01/20/2025 9:11 AM EST30 mEq potassium chloride (KAYCIEL) 20 mEq/15 mL solution 30-40 mEq 30-40 mEq, oral, As needed, Potassium Supplementation, Starting on 01/19/25 at 2349, Progress to oral potassium replacement when patient tolerating oral intake. If dose administered, recheck potassium level 4 hours after last dose. For potassium level 3.4 to 3.8 mmol/L and GFR 30 mL/min or greater=30 mEq. For potassium level 3.1 to 3.3 mmol/L and GFR 30 mL/min or greater=40 mEq. For potassiumlevel 3 mmol/L or less and GFR 30 mL/min or greater=50 mEq. Must dilute before use - Mix in 3-8 ounces of water or juice before administration When administering in feeding tube, flush before and after per policy and monitor potassium levels potassium chloride IVPB 10 mEq/100 mL in water (0.1 mEq/mL premix) 10 mEq, intravenous, at 100 mL/hr, Administer over 60 Minutes, As needed, POTASSIUM REPLACEMENT, Starting on 01/19/25 at 2349, IV if unable to use oral/enteral with the current dosing strategies Potassium level 3 mmol/L or less administer Potassium Chloride 50 mEq Potassium level 3.1 to 3.3 mmol/L administer Potassium Chloride 40 mEq Potassium level 3.4 to 3.8 mmol/L administer Potassium Chloride 30 mEq Use central line when applicable. Recheck potassium level 1 hour after total IVPB infusion complete, With each potassium result continue the replacement orders as needed VESICANT (YELLOW) Infuse each 10 mEq over a minimum of 1 hour. sodium chloride 0.9 % flush 3 mL 3 mL, intravenous, Every 12 hours scheduled, First dose on Mon01/20/25 at 0000 Given01/20/2025 9:24 AM EST3 mL sodium chloride 0.9 % infusion 50 mL/hr, intravenous, Continuous, Starting on Mon01/20/25 at 0745, For 1 day Rate/Dose Lnqrtc9901/20/2025 11:43 AM EST50 mL/xbAuzispuyg78/17/2025 9:46 AM EST50 mL/nwUgicrcgzk33/17/2025 9:31 AM EST50 mL/hrdocumented in this encounter Active and Recently Administered Medications Times are shown in EST.Medication Order// cefTRIAXone (ROCEPHIN) 1,000 mg in sodium chloride 0.9 % 50 mL IVPB W/ADAPTER 1,000 mg, intravenous, at 100 mL/hr, Administer over 30 Minutes, Every 24 hours, First dose (after last modification) on Mon01/20/25 at 1930, For Vial-2-Bag: Attach bag and vial to adapter - Use immediately after activating; dissolve drug prior to administration., Indication: UTI * 2004 (New Bag - Provider: Georgiana Vega RN) * 2034 (Stop Bag - Provider: Georgiana Vega RN) iron sucrose (VENOFER) 200 mg in sodium chloride 0.9 % 100 mL IVPB 200 mg, intravenous, at 440 mL/hr, Administer over 15 Minutes, Daily, First dose on Mon01/20/25 ua1527, For 3 days, Monitor patient for hypersensitivity reactions for at least 30 minutes after the infusion. AVOID the use of H1 antihistamines, such as diphenhydramine, as this may worsen hypersensitivity reactions. Have resuscitation equipment and medications available. * 0916 (New Bag - Provider: Daniela Mayo RN) * 0931 (Paused - Provider: Daniela Mayo RN) * 0939 (Restarted - Provider: Daniela Mayo RN) * 0944 (Rate/Dose Verify - Provider: Daniela Mayo RN) * 0946 (Stop Bag - Provider: Daniela Mayo RN) sodium chloride 0.9 % flush 3 mL 3 mL, intravenous, Every 12 hours scheduled, First dose on Mon01/20/25 at 0000 * 0000 (Not Given - Provider: Georgiana Vega RN - Reason: IV infusing) * 0924 (Given - Provider: Daniela Mayo RN) * 2100 (Not Given - Provider: Georgiana Vega RN - Reason: IV infusing) Medication Order// pantoprazole (PROTONIX) 80 mg in sodium chloride 0.9 % 100 mL (0.8 mg/mL) infusion 8 mg/hr (10 mL/hr), intravenous, Continuous, Starting on Mon01/20/25 at 0000, Look-alike/sound-alike medication - verify indication for use., Indication: Upper GI bleed * 0000 (New Bag - Provider: Georgiana Vega RN) * 0038 (Rate/Dose Verify - Provider: Daniela Mayo RN) * 0043 (Paused - Provider: Daniela Mayo RN) * 0045 (Paused - Provider: Daniela Mayo RN) * 0045 (Restarted - Provider: Daniela Mayo RN) * 0124 (Paused - Provider: Daniela Mayo RN) * 0129 (Restarted - Provider: Daniela Mayo, LOU) * 0354 (Paused - Provider: Daniela Mayo RN) * 0356 (Restarted - Provider: Daniela Mayo RN) * 0645 (Paused - Provider: Daniela Mayo RN) * 0648 (Restarted - Provider: Daniela Mayo RN) * 0708 (Paused - Provider: Daniela Mayo, RN) * 0712 (Restarted - Provider: Daniela Mayo, RN) * 0826 (Paused - Provider: Daniela Mayo RN) * 0831 (Restarted - Provider: Daniela Mayo RN) * 0845 (Paused - Provider: Daniela Mayo RN) * 0847 (Restarted - Provider: Daniela Mayo RN) * 0913 (Stop Bag - Provider: Daniela Mayo RN) * 0944 (New Bag - Provider: Daniela Mayo RN) * 1139 (Paused - Provider: Daniela Mayo RN) * 1141 (Restarted - Provider: Daniela Mayo RN) * 1143 (Rate/Dose Verify - Provider: Daniela Mayo RN) * 202 (New Bag - Provider: Georgiana Vega RN) * 0449 (Due: Order Ending - Provider: Automatic Discharge Provider - Comment: [Order ends at this time. Document the following action when infusion is complete: Stop Bag]) sodium chloride 0.9 % infusion 50 mL/hr, intravenous, Continuous, Starting on Mon01/20/25 at 0745, For 1 day * 0743 (New Bag - Provider: Daniela Mayo RN) * 0744 (Rate/Dose Verify - Provider: Daniela Mayo RN) * 0826 (Paused - Provider: Daniela Mayo RN) * 0831 (Restarted - Provider: Daniela Mayo RN) * 0916 (Paused - Provider: Daniela Mayo RN) * 0931 (Restarted - Provider: Daniela Mayo RN) * 0939 (Paused - Provider: Daniela Mayo RN) * 0946 (Restarted - Provider: Daniela Mayo RN) * 1143 (Rate/Dose Verify - Provider: Daniela Mayo RN) * 0449 (Due: Order Ending - Provider: Automatic Discharge Provider - Comment: [Order ends at this time. Document the following action when infusion is complete: Stop Bag]) Medication Order// acetaminophen (TYLENOL) tablet 650 mg 650 mg, oral, Every 6 hours PRN, mild pain - pain scale 1-3, temperature greater than 38 C, Starting on 01/19/25 at 2349, [Warning: Total Acetaminophen not to exceed more than 4 grams (4000 mg) in 24 hours] alum-mag hydroxide-simeth (MAALOX) 200-200-20 mg/5 mL suspension 30 mL 30 mL, oral, 4 times daily after meals and at bedtime as needed, dyspepsia, Starting on 01/19/25 at 2349, Look-alike/sound-alike medication - verify indication for use. Shake well., Indications: dyspepsia magnesium sulfate IVPB 2000 mg/50 mL in iso-osmotic water (40 mg/mL premix) 2,000 mg, intravenous, at 25 mL/hr, Administer over 120 Minutes, As needed, Magnesium level 1.7-1.9, Starting on Mon01/19/25 at 2349, Recheck magnesium level 4 hours after infusion complete. With each magnesium result continue the replacement orders as needed. magnesium sulfate IVPB 4000 mg/100 mL in iso-osmotic water (40 mg/mL premix) 4,000 mg, intravenous, at 25 mL/hr, Administer over 240 Minutes, As needed, Magnesium level 1.6 mg/dL or less, Starting on Mon01/19/25 at 2349, Recheck magnesium level 4 hours after infusion complete. With each magnesium result continue the replacement orders as needed. meclizine (ANTIVERT) tablet 25 mg 25 mg, oral, 3 times daily PRN, dizziness, Starting on Mon01/20/25 at 0727, Look-alike/sound-alikemedication - verify indication for use. * 0756 (Given - Provider: Daniela Mayo RN) morphine injection 2 mg 2 mg, intravenous, Every 4 hours PRN, for breakthrough pain, Starting on Mon01/19/25 at 2348, Look-alike/sound-alike medication - verify indication for use. * 0036 (Given - Provider: Georgiana Vega RN) * 0457 (Given - Provider: Georgiana Vega, LOU) * 0911 (Given - Provider: Daniela Mayo RN) * 1315 (Given - Provider: Daniela Mayo RN) * 1737 (Given - Provider: Daniela Mayo RN) * 2142 (Given - Provider: Georgiana Vega, RN) * 0141 (Given - Provider: Georgiana Vega, LOU) ondansetron (PF) (ZOFRAN) injection 4 mg 4 mg, intravenous, Every 4 hours PRN, nausea, vomiting, Starting on Mon01/19/25 at 2349, Intravenous administration preferred to be given over 2-5 minutes. potassium chloride (K-TAB,KLOR-CON) CR tablet 30-40 mEq(Linked Group 1) 30-40 mEq, oral, As needed, Potassium Supplementation, Starting on 01/19/25 at 2349, Progress to oral potassium replacement when patient tolerating oral intake. If dose administered, recheck potassium level 4 hours after last dose. For potassium level 3.4 to 3.8 mmol/L and GFR 30 mL/min or greater=30 mEq. For potassium level 3.1 to 3.3 mmol/L and GFR 30 mL/min or greater=40 mEq. For potassiumlevel 3 mmol/L or less and GFR 30 mL/min or greater=50 mEq. Do not crush or chew. * 0911 (Given - Provider: Daniela Mayo RN) potassium chloride (KAYCIEL) 20 mEq/15 mL solution 30-40 mEq(Linked Group 1) 30-40 mEq, oral, As needed, Potassium Supplementation, Starting on Mon01/19/25 at 2349, Progress to oral potassium replacement when patient tolerating oral intake. If dose administered, recheck potassium level 4 hours after last dose. For potassium level 3.4 to 3.8 mmol/L and GFR 30 mL/min or greater=30 mEq. For potassium level 3.1 to 3.3 mmol/L and GFR 30 mL/min or greater=40 mEq. For potassiumlevel 3 mmol/L or less and GFR 30 mL/min or greater=50 mEq. Must dilute before use - Mix in 3-8 ounces of water or juice before administration When administering in feeding tube, flush before and after per policy and monitor potassium levels * 0911 (See Alternative - Provider: Daniela Mayo RN) potassium chloride IVPB 10 mEq/100 mL in water (0.1 mEq/mL premix)(Linked Group 1) 10 mEq, intravenous, at 100 mL/hr, Administer over 60 Minutes, As needed, POTASSIUM REPLACEMENT, Starting on Mon01/19/25 at 2349, IV if unable to use oral/enteral with the current dosing strategies Potassium level 3 mmol/L or less administer Potassium Chloride 50 mEq Potassium level 3.1 to 3.3 mmol/L administer Potassium Chloride 40 mEq Potassium level 3.4 to 3.8 mmol/L administer Potassium Chloride 30 mEq Use central line when applicable. Recheck potassium level 1 hour after total IVPB infusion complete, With each potassium result continue the replacement orders as needed VESICANT (YELLOW) Infuse each 10 mEq over a minimum of 1 hour. * 0911 (See Alternative - Provider: Daniela Mayo RN) sennosides-docusate sodium (SENOKOT-S) 8.6-50 mg 1 tablet 1 tablet, oral, Every 12 hours PRN, constipation, Starting on Mon01/19/25 at 2349 sodium chloride 0.9 % flush 3 mL 3 mL, intravenous, As needed, line care, before and after each intermittent use, Starting on Mon01/19/25 at 2348 sodium chloride 0.9 % flush 3 mL 3 mL, intravenous, As needed, line care, before and after each intermittent use, Starting on Mon01/19/25 at 2349 Order Group 1: potassium chloride (K-TAB,KLOR-CON) CR tablet 30-40 mEqJump to med 30-40 mEq, oral, As needed, Potassium Supplementation, Starting on Mon01/19/25 at 2349, Progress to oral potassium replacement when patient tolerating oral intake. If dose administered, recheck potassium level 4 hours after last dose. For potassium level 3.4 to 3.8 mmol/L and GFR 30 mL/min or greater=30 mEq. For potassium level 3.1 to 3.3 mmol/L and GFR 30 mL/min or greater=40 mEq. For potassiumlevel 3 mmol/L or less and GFR 30 mL/min or greater=50 mEq. Do not crush or chew. Or potassium chloride (KAYCIEL) 20 mEq/15 mL solution 30-40 mEqJump to med 30-40 mEq, oral, As needed, Potassium Supplementation, Starting on Mon01/19/25 at 2349, Progress to oral potassium replacement when patient tolerating oral intake. If dose administered, recheck potassium level 4 hours after last dose. For potassium level 3.4 to 3.8 mmol/L and GFR 30 mL/min or greater=30 mEq. For potassium level 3.1 to 3.3 mmol/L and GFR 30 mL/min or greater=40 mEq. For potassiumlevel 3 mmol/L or less and GFR 30 mL/min or greater=50 mEq. Must dilute before use - Mix in 3-8 ounces of water or juice before administration When administering in feeding tube, flush before and after per policy and monitor potassium levels Or potassium chloride IVPB 10 mEq/100 mL in water (0.1 mEq/mL premix)Jump to med 10 mEq, intravenous, at 100 mL/hr, Administer over 60 Minutes, As needed, POTASSIUM REPLACEMENT, Starting on Mon01/19/25 at 2349, IV if unable to use oral/enteral with the current dosing strategies Potassium level 3 mmol/L or less administer Potassium Chloride 50 mEq Potassium level 3.1 to 3.3 mmol/L administer Potassium Chloride 40 mEq Potassium level 3.4 to 3.8 mmol/L administer Potassium Chloride 30 mEq Use central line when applicable. Recheck potassium level 1 hour after total IVPB infusion complete, With each potassium result continue the replacement orders as needed VESICANT (YELLOW) Infuse each 10 mEq over a minimum of 1 hour. documented in this encounter Care Teams Team MemberRelationshipSpecialtyStart DateEnd Date Tina Willis, PLASTICS SEASONER OPERATOR-SUPERVISOR [employer] [address] [place] [id number] PCP - GeneralFamily Yfufoyeg77/13/24documented as of this encounter
--- OUTSIDE RECORDS SUMMARY | 2025-01-21 04:49 | XMS_ITS | Encounter Summary ---
Author Organization [facility] tem Address [id number] [address] [place] [address] Care Team Providers Care Tourist Adviser Name Role Phone Tina Willis Primary Care Provider Reason for Referral * Misc (Routine) - Pending ReviewSpecialtyDiagnoses / ProceduresReferred By ContactReferred To Contact Procedures Discharge Follow-Up Jazlyn Field APRN-CNP [address], [address] [address] Phone: tel: fax: Referral IDStatAmadeo DateExpiration DateVisits RequestedVisits [id number] * Misc (Routine) - Pending ReviewSpecialtyDiagnoses / ProceduresReferred By ContactReferred To Contact Diagnoses Acute otitis media, unspecified otitis media type Procedures Follow-up with primary care provider Jazlyn Field APRN-CNP [address], [facility] [address] [place] [address] Phone: tel: fax: Referral IDStatusDarcyasonStart DateExpiration DateVisits RequestedVisits [id number] Reason for Visit * Auth/CertSpecialtyDiagnoses / ProceduresReferred By ContactReferred To Contact Diagnoses [facility] [place] [address] Referral IDStatusReasonStart DateExpiration DateVisits RequestedVisits [id number] Encounter Details DateTypeDepartmentCare Team (Latest Contact Info)Ebugtzomcvz87/18/2025 4:49 AM EST - 01/22/2025 6:12 PM ESTHospital Encounter [facility] - [facility] Unit [address] [facility] [place] [id number] Napoleon Klein MD [address] [place], [place] [id number] Acute otitis media, unspecified otitis media type (Primary Dx) Discharge Disposition: Home Social History Tobacco UseTypesPacks/DayYears UsedDateSmoking Tobacco: FormerCigarettes [...] RecordedIn the past 12 months has the iList, gas, oil, or water VisualOn threatened to shut off services in your home?No01/21/2025Housing InstabilityAnswerDate RecordedAre you worried or concerned that in the next two months you may not have stable housing that you own, rent or stay in as a part of a household?No01/21/2025Hunger ScreeningAnswerDate RecordedWithin the past 12 months we worried whether our food would run out before we got money to buy more.Patient Twtxugje83/18/2025 Within the past 12 months the food we bought just didn't last and we didn't have money to get more.Patient Sstqodeg04/18/2025Sex and Gender InformationValueDate RecordedSex Assigned at BirthNot on fileLegal WnkHavq13/13/2024 1:45 PM EST Gender IdentityNot on fileSexual OrientationNot on filedocumented as of this encounter Last Filed Vital Signs Vital SignReadingTime TakenCommentsBlood Kmkctshm718/7501/22/2025 2:15 PM EST Lhvov133101/22/2025 2:15 PM NYQEbzezqorier51.7 ??C (98.1 ??F)01/22/2025 2:15 PM ESTRespiratory Vweu3554 2:15 PM ESTOxygen Dyndykdemb63%01/22/2025 2:15 PM ESTInhaled Oxygen Concentration--Htthmw574.4 kg (221 lb 5.5 oz)01/22/2025 11:40 AM ZPQLmrkua384.5 cm (6' 3 )01/22/2025 11:40 AM ESTBody Mass Index27.67 01/22/2025 11:40 AM ESTdocumented in this encounter Functional Status documented as of this encounter Discharge Summaries * Napoleon Klein MD - 01/22/2025 7:41 PM EST Images from the original note were not included. [facility] INTERNAL MEDICINE [facility] - [facility]ARE [facility] [address] [facility] [id number] Hospital Medicine Discharge Summary Patient: Stanford Mccray Date of : 1980 Room: Encounter date: 01/22/25 Hospital Day: 2 DATE OF ADMISSION: 01/21/2025 DATE OF DISCHARGE:01/22/2025 DISCHARGE DIAGNOSES Principal Problem: GI bleed [facility] PCP: TINA WILLIS APRN-CRYSTAL GROWING TECHNICIAN PROCEDURES EGD HOSPITAL COURSE SUMMARY Stanford Mccray is a 44 y.o. male who presents as a transfer from [facility]. Patient reports he had dizziness for the last couple days has not been able to eat had 2 black tarry stools. Patient reports he just has not felt well. Patient reports he follows with GI has been a couple years in [facility] patient is noted to be ill-appearing with a hemoglobin of 8.8 in theER since dropped to 8.4. Patient was started on Protonix drip has not had a stool here yet to check for an occult. Patient did have a negative occult a couple days ago. Patient is also noted to have an acute cystitis with hematuria Rocephin was added urine cultures pending. Patient had a history ofchronic pancreatitis from a necrotizing gallstone. hepatitis panel as well which was negative. Anemia GI bleed Dizziness -GI consult -trend H&H -check occult -iron 12 iron sats 3 start IV Venofer -does look like back January 17 hemoglobin was 9.7 downward trend since>8.8>8.4>7.9 -on Protonix drip -gastric soft diet today then NPO after 12 mid -EGD tomorrow - normal saline at 100 an hour -add Antivert p.r.n. 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 Had CHOLANGIOGRAM in 2019 Didconfirm similar findings from 2019 also noted fatty liver -could not locate anything from GI recently -celiac plexus block in October 2018 -continue on Creon if he is still taking will need to confirm Patient went for EGD today with GI. EGD results were as following: The Z-line was irregular. Multiple dispersed erosions with no stigmata of recent bleeding were found in the gastric antrum. Biopsies were taken with a cold forceps for Helicobacter pylori testing. The examined duodenum was normal. Patient tolerating gastric soft diet. Patient continues to complain of dizziness. Orthostatic bloodpressure checks have been negative. CT brain on 01/19 negative as well. Patient complains of pain to left ear. Otoscopic examination of left ear revealed mild otitis media. Offered for patient to stay and be seen by Neurology tomorrow in regard to ongoing dizziness. Patient does not want to stay and would like to be discharged. GI physician okay with discharge. Patient will follow up outpatient with [facility] GI who he has an established relationship with. Patient asking for work releasenote. Informed patient he would be released to work with restrictions such as not climbing ladder due to ongoing dizziness. Patient declined having the form filled out by myself and stated he would follow up with his PCP. Instructed nurse to educate patient that he should comply with these restrictions when going back to work. Patient to follow up with PCP within the week as well. Patient discharged with prescription for Protonix 40 mg p.o. b.i.d. and amoxicillin p.o. b.i.d. x5 days. Prescription for Antivert 25 mg PO TID PRN for dizziness provided as well. Sepsis suspected, no-not clinically evident at this time. Discharge Day Progress Note 01/22/25 No overnight events and remains hemodynamically stable. Review of Systems Constitutional: Negative for activity change and fatigue. HENT: Negative for congestion and sore throat. Respiratory: Negative for cough and shortness of breath. Cardiovascular: Negative for chest pain and palpitations. Gastrointestinal: Positive for abdominal pain and nausea. Genitourinary: Negative for difficulty urinating and dysuria. Musculoskeletal: Negative for arthralgias and myalgias. Skin: Negative for rash. Neurological: Negative for dizziness and light-headedness. Psychiatric/Behavioral: Negative for agitation and confusion. BP 114/75 Pulse 71 Temp 36.7 ??C (98.1 ??F) (Oral) Resp 20 Ht 190.5 cm (6' 3 ) Wt 100.4 kg (221 lb 5.5 oz) SpO2 96% BMI 27.67 kg/m?? Temp: [36.3 ??C (97.3 ??F)-37.3 ??C (99.1 ??F)] 36.7 ??C (98.1 ??F) Pulse: [57-78] 71 Resp: [16-31] 20 BP: (92-127)/(53-92) 114/75 SpO2: [92 %-97 %] 96 % O2 Device: None (Room air) Intake/Output Summary (Last 24 hours) at 01/22/2025 1941 Last data filed at 01/22/2025 1654 Gross per 24 hour Intake 1196.54 ml Output 1630 ml Net -433.46 ml Physical Exam Constitutional: Appearance: Normal appearance. Eyes: Pupils: Pupils are equal, round, and reactive to light. Cardiovascular: Rate and Rhythm: Normal rate and regular rhythm. Pulses: Normal pulses. Heart sounds: Normal heart sounds. Pulmonary: Effort: Pulmonary effort is normal. Breath sounds: Normal breath sounds. Abdominal: General: Bowel sounds are normal. Palpations: Abdomen is soft. Tenderness: There is abdominal tenderness. Musculoskeletal: Cervical back: Normal range of motion and neck supple. Right lower leg: No edema. Left lower leg: No edema. Skin: General: Skin is warm and dry. Coloration: Skin is pale. Neurological: General: No focal deficit present. Mental Status: He is alert and oriented to person, place, and time. Psychiatric: Comments: Mild anger/agitation Code Status: Full Code Labs Recent Results (from the past 48 hours) Hemoglobin and hematocrit, blood Collection Time: 01/21/25 11:17 AM Result Value Ref Range Hemoglobin 8.4 (L) 13 - 17 g/dL Hematocrit 25.2 (L) 39 - 50 % Comprehensive metabolic panel Collection Time: 01/21/25 11:17 AM Result Value Ref Range SODIUM 132 (L) 134 - 146 mmol/L POTASSIUM 3.8 3.5 - 5.0 mmol/L CHLORIDE 99 98 - 109 mmol/L CARBON DIOXIDE 23 22 - 32 mmol/L ANION GAP 10 5 - 15 mmol/L BLOOD UREA NITROGEN 12 5 - 23 mg/dL CREATININE 0.88 0.70 - 1.20 mg/dL GLUCOSE 91 65 - 99 mg/dL CALCIUM 8.3 (L) 8.5 - 10.5 mg/dL TOTAL PROTEIN 6.4 6.0 - 8.0 g/dL ALBUMIN 2.9 (L) 3.2 - 5.3 g/dL ALKALINE PHOSPHATASE 151 (H) 39 - 130 U/L AST 60 (H) <=41 U/L ALT 61 (H) <=40 U/L BILIRUBIN,TOTAL 1.5 (H) 0.3 - 1.2 mg/dL EGFR Non-Race Dependent >90 >=60 ml/min/1.73sq.m Hemoglobin and hematocrit, blood Collection Time: 01/21/25 4:51 PM Result Value Ref Range Hemoglobin 7.9 (L) 13 - 17 g/dL Hematocrit 24.3 (L) 39 - 50 % Occult blood x 1, stool Collection Time: 01/21/25 10:25 PM Result Value Ref Range FECAL OCCULT BLOOD Positive (A) Negative Comprehensive metabolic panel Collection Time: 01/22/25 5:16 AM Result Value Ref Range SODIUM 136 134 - 146 mmol/L POTASSIUM 4.3 3.5 - 5.0 mmol/L CHLORIDE 104 98 - 109 mmol/L CARBON DIOXIDE 25 22 - 32 mmol/L ANION GAP 7 5 - 15 mmol/L BLOOD UREA NITROGEN 12 5 - 23 mg/dL CREATININE 0.91 0.70 - 1.20 mg/dL GLUCOSE 121 (H) 65 - 99 mg/dL CALCIUM 8.2 (L) 8.5 - 10.5 mg/dL TOTAL PROTEIN 6.3 6.0 - 8.0 g/dL ALBUMIN 2.9 (L) 3.2 - 5.3 g/dL ALKALINE PHOSPHATASE 123 39 - 130 U/L AST 30 <=41 U/L ALT 44 (H) <=40 U/L BILIRUBIN,TOTAL 0.6 0.3 - 1.2 mg/dL EGFR Non-Race Dependent >90 >=60 ml/min/1.73sq.m Magnesium Collection Time: 01/22/25 5:16 AM Result Value Ref Range MAGNESIUM 2.2 1.8 - 2.6 mg/dL CBC auto differential Collection Time: 01/22/25 5:16 AM Result Value Ref Range WBC 4.0 4 - 11 10^9/L RBC Count 3.48 (L) 4.1 - 5.7 10^12/L Hemoglobin 8.5 (L) 13 - 17 g/dL Hematocrit 25.5 (L) 39 - 50 % MCV 73 (L) 80 - 100 fL MCH 24.4 (L) 27 - 34 pg MCHC 33.4 32 - 36 g/dL RDW 15.8 (H) 11.5 - 15 % Platelet Count 213 150 - 450 10^9/L MPV 7.8 7 - 12 fL Neutrophils % 70.7 % Lymphocytes % 14.6 % Monocytes % 10.7 % Eosinophils % 3.5 % Basophils % 0.5 % Neutrophils Absolute (A) 2.8 1.5 - 6.6 10^9/L Lymphocytes Absolute 0.6 (L) 1.0 - 3.5 10^9/L Monocytes Absolute 0.4 0.0 - 0.9 10^9/L Eosinophils Absolute 0.1 0.0 - 0.4 10^9/L Basophils Absolute 0.0 0.0 - 0.2 10^9/L Differential Type AUTOMATED DIFFERENTIAL Hemoglobin and hematocrit, blood Collection Time: 01/22/25 4:55 PM Result Value Ref Range Hemoglobin 8.4 (L) 13 - 17 g/dL Hematocrit 26.2 (L) 39 - 50 % Radiology EGD Report Result Date: 01/22/2025 Narrative: This order has been auto-finalized for image and report archival in PACs. *For full report details, please reach out to your physician. This image is visible to you in MyChart.* EGD Report Result Date: 01/22/2025 Narrative: This order has been auto-finalized for image and report archival in PACs. *For full report details, please reach out to your physician. This image is visible to you in MyChart.* EGD Report Result Date: 01/22/2025 Narrative: This order has been auto-finalized for image and report archival in PACs. *For full report details, please reach out to your physician. This image is visible to you in MyChart.* CT brain without contrast Result Date: 01/19/2025 [...] IMPRESSION: * No acute intracranial abnormality by CT . Finalized by Saleem Dalton MD on 01/19/2025 [...] on 01/17/2025 10:23 PM DISCHARGE INSTRUCTION Disposition: Home Condition: Stable Activity: No climbing ladders at work until seen by PCP outpatient Diet: Adult diet Regular Texture; Low Fiber (gastric soft) Follow up: NEVILLE FRENCH within 7-14 days. Follow up with PCP in 7-10 days Follow up with [facility] GI outpatient Labs/Imaging/Pathology: Pending Labs Order Current Status Surgical Pathology In process Discharge Medications: Medication List PAUSE taking these medications Instructions Last Dose Given Next Dose Due hydroCHLOROthiazide 12.5 mg tablet Wait to take this until your doctor or other care provider tells you to start again. Commonly known as: HYDRODIURIL Take 1 tablet (12.5 mg total) by mouth daily. START taking these medications Instructions Last Dose Given Next Dose Due amoxicillin-pot clavulanate 875-125 mg per tablet Commonly known as: AUGMENTIN Take 1 tablet by mouth every 12 (twelve) hours for 5 days. meclizine 25 mg tablet Commonly known as: ANTIVERT Take 1 tablet (25 mg total) by mouth 3 (three) times a day as needed for dizziness. CHANGE how you take these medications Instructions Last Dose Given Next Dose Due pantoprazole 40 mg EC tablet Commonly known as: PROTONIX Start taking on: January 23, 2025 What changed: medication strength how much to take when to take this Take 1 tablet (40 mg total) by mouth in the morning and 1 tablet (40 mg total) in the evening. Takebefore meals. CONTINUE taking these medications Instructions Last Dose Given Next Dose Due hydrOXYzine 25 mg tablet Commonly known as: ATARAX Take 1 tablet (25 mg total) by mouth 2 (two) times a day as needed for itching. lidocaine 5 % Commonly known as: LIDODERM Place 1 patch on the skin daily. Remove & Discard patch within 12 hours or as directed by nikjsn-kiwnbxdx-zrgbzdc (pork) 3,000-9,500- 15,000 unit capsule,delayed release(DR/EC) Commonly known as: CREON Take by mouth. ondansetron ODT 4 mg disintegrating tablet Commonly known as: ZOFRAN ODT Dissolve 1 tablet (4 mg total) on tongue every 8 (eight) hours as needed for nausea for up to 6 doses. sertraline 50 mg tablet Commonly known as: ZOLOFT Take 1 tablet (50 mg total) by mouth in the morning. traZODone 50 mg tablet Commonly known as: DESYREL Take 1 tablet (50 mg total) by mouth daily as needed. Where to Get Your Medications These medications were sent to [id number] [place] - [address] [facility] [place] [address] amoxicillin-pot clavulanate 875-125 mg per tablet meclizine 25 mg tablet pantoprazole 40 mg EC tablet >30 minutes were spent on discharging this patient. Jazlyn Field APRN-WAI 01/22/2025 7:41 PM [facility] Internal Medicine 7AM-7PM & 7PM-7AM: EpicChat or page through On-Call Finder. NEVILLE Littlejohn 01/22/25 1950 Physician Attestation I, Napoleon Klein MD, personally [...] plan as noted. documented in this encounter Discharge Instructions * Discharge Instr - Activity* Lotus Anthony RN - 01/22/2025 5:37 PM EST As tolerated * Discharge Instr - Diet* Lotus Anthony RN - 01/22/2025 5:37 PM EST Gastric soft * Attachments The following attachments cannot be sent through Care Everywhere. * GI bleed ??? Discharge instructions (Prydeinig) documented in this encounter Medications at Time [...] or as directed by 30 patch 01/17/2024 ectkuv-zqchrvqk-bpkrhzb (CREON) 3,000-9,500- 15,000 unit capsule,delayed release(DR/EC) Take [...] in the evening. Takebefore meals. 60 tablet documented as of this encounter Progress Notes * Austyn Enamorado MD - 01/22/2025 12:07 PM EST Images from the original note were not included. [facility] Progress Note IDENTIFYING DATA PATIENT: Stanford Mccray ADMIT DATE: 01/21/2025 HOSPITAL STAY: LOS: 1 day SUBJECTIVE/INTERVAL HISTORY Patient tolerated oral intake yesterday. Still complaining of abdominal pain, generalized. Nausea no vomiting. No coffee-ground emesis no hematemesis. He had a bowel movement yesterday. Fecal occult blood testing was positive. He did not look at the stool to check for any blood or melena. OBJECTIVE MEDICATIONS Medications Prior to Admission Medication Sig Dispense Refill Last Dose/Taking hydroCHLOROthiazide (HYDRODIURIL) 12.5 mg tablet Take 1 tablet (12.5 mg total) by mouth daily. Taking hydrOXYzine (ATARAX) 25 mg tablet Take 1 tablet (25 mg total) by mouth 2 (two) times a day as needed for itching. Taking As Needed lidocaine (LIDODERM) 5 % Place 1 patch on the skin daily. Remove & Discard patch within 12 hours or as directed by MD Feldman patch 0 Taking xadsln-nurigygl-ecozgjt (CREON) 3,000-9,500- 15,000 unit capsule,delayed release(DR/EC) Take by mouth. Taking ondansetron ODT (ZOFRAN ODT) 4 mg disintegrating tablet Dissolve 1 tablet (4 mg total) on tongue every 8 (eight) hours as needed for nausea for up to 6 doses. 6 tablet 0 Taking As Needed pantoprazole (PROTONIX) 20 mg EC tablet Take 1 tablet (20 mg total) by mouth in the morning. Taking sertraline (ZOLOFT) 50 mg tablet Take 1 tablet (50 mg total) by mouth in the morning. Taking traZODone (DESYREL) 50 mg tablet Take 1 tablet (50 mg total) by mouth daily as needed. Taking As Needed Current Medications: @MEDSCURRENTMD@ PRNs: [Transfer Hold] acetaminophen, 650 mg, Q6H PRN [Transfer Hold] alum-mag hydroxide-simeth, 30 mL, PCHSP dextrose 5 % in water, 100 mL/hr, Continuous PRN dextrose 50 % in water (D50W), 25 mL, PRN glucagon (human recombinant), 1 mg, PRN lidocaine PF, 0.1 mL, PRN [Transfer Hold] magnesium sulfate, 2,000 mg, PRN [Transfer Hold] magnesium sulfate, 4,000 mg, PRN [Transfer Hold] meclizine, 25 mg, TID PRN [Transfer Hold] morphine injection, 2 mg, Q4H PRN [Transfer Hold] ondansetron, 4 mg, Q4H PRN [Transfer Hold] potassium chloride, 30-40 mEq, PRN Or [Transfer Hold] potassium chloride, 30-40 mEq, PRN Or [Transfer Hold] potassium chloride IV (Adult), 10 mEq, PRN [Transfer Hold] sennosides-docusate sodium, 1 tablet, Q12H PRN [Transfer Hold] sodium chloride, 3 mL, PRN [Transfer Hold] sodium chloride, 3 mL, PRN sodium chloride, 3 mL, PRN Allergies: No Known Allergies Physical VITALS: BP 122/89 Pulse 77 Temp 36.6 ??C (97.9 ??F) (Tympanic) Resp 16 Ht 190.5 cm (6' 3 ) Wt 100.4 kg (221 lb 5.5 oz) SpO2 96% BMI 27.67 kg/m?? CONSTITUTIONAL: awake, alert and no apparent distress LUNGS: No increased work of breathing, good air exchange, clear to auscultation bilaterally, no crackles or wheezing CARDIOVASCULAR: regular rate and rhythm, normal S1 and S2 ABDOMEN: normal bowel sounds, soft, non-distended and non-tender NEURO: no focal deficits, moves all 4 extremities spontaneously LABS AND IMAGING No results found for: INR Lab Results Component Value Date HGB 8.5 (L) 01/22/2025 HGB 7.9 (L) 01/21/2025 HGB 8.4 (L) 01/21/2025 Lab Results Component Value Date PLT 213 01/22/2025 PLT 208 01/20/2025 PLT 197 01/19/2025 No components found for: CREAT No results found for: NA No components found for: TBILI CBC: Lab Results Component Value Date WBC 4.0 01/22/2025 HGB 8.5 (L) 01/22/2025 HCT 25.5 (L) 01/22/2025 MCV 73 (L) 01/22/2025 RDW 15.8 (H) 01/22/2025 PLT 213 01/22/2025 CMP: Lab Results Component Value Date K 4.3 01/22/2025 CL 104 01/22/2025 CO2 25 01/22/2025 BUN 12 01/22/2025 GLU 121 (H) 01/22/2025 Magnesium: Lab Results Component Value Date MG 2.2 01/22/2025 Phosphorus: No components found for: PO4 PT/INR: No results found for: INR Cylcosporine - LCMS : No components found for: CSA Tacrolimus STAT : No components found for: FK506 Lipase: No components found for: LIP Magnesium: Lab Results Component Value Date MG 2.2 01/22/2025 Phosphorus: No components found for: PO4 FLP (Lipid Profile): No results found for: CHOL , TRIG , HDL , CHOLHDLR TSH: Lab Results Component Value Date TSH 2.17 01/20/2025 VITAMIN B12: No components found for: B12 FOLATE: No results found for: FOLATE FERRITIN: Lab Results Component Value Date FERRITIN 83 01/19/2025 Fibrinogen Level: No results found for: FIB Consults IP CONSULT TO GASTROENTEROLOGY ASSESSMENT AND PLAN Principal Problem: GI bleed Stable hemoglobin. Fecal occult blood testing positive. 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 Abdominal pain. The patient is set up for EGD for diagnostic/therapeutic purposes today. On Protonix drip. Discussed with patient the rationale for the procedure along with risks and benefits of the EGD including but not limited to inducing bleeding or inability to control bleed that might require surgeryor IR for embolization,?injury secondary to positioning,?stroke, embolism, infection, perforation that may require Surgery, stroke, embolism, reaction to the medications given, aspiration, pulmonary/cardiac arrest/. Patient agreeable to proceed with EGD with bleeding endoscopic?interventions. All questions and concerns addressed.? This note is dictated with the use of Windation, a computer voice recognition software. Quite often unanticipated grammatical, syntax, homophones, and other interpretive errors are inadvertently transcribed by the computer software. Please disregard these errors and please excuse any errors that haveescaped final proofreading. Austyn Enamorado MD, MPH Gastroenterology & Hepatology [facility], [address], [facility] [address] [place] [address] PH: [phone] documented in this encounter H&P Notes * Austyn Enamorado MD - 01/22/2025 12:10 PM EST HISTORY AND PHYSICAL INTERVAL NOTE: Stanford Smith Mccray 1980 [id number] H&P reviewed. The patient was examined and there are no changes to the H&P. AUSTYN ENAMORADO MD Source Note - Austyn Enamorado MD - 01/22/2025 12:07 PM EST Images from the original note were not included. [facility] Progress Note IDENTIFYING DATA PATIENT: Stanford Mccray ADMIT DATE: 01/21/2025 HOSPITAL STAY: LOS: 1 day SUBJECTIVE/INTERVAL HISTORY Patient tolerated oral intake yesterday. Still complaining of abdominal pain, generalized. Nausea no vomiting. No coffee-ground emesis no hematemesis. He had a bowel movement yesterday. Fecal occult blood testing was positive. He did not look at the stool to check for any blood or melena. OBJECTIVE MEDICATIONS Medications Prior to Admission Medication Sig Dispense Refill Last Dose/Taking hydroCHLOROthiazide (HYDRODIURIL) 12.5 mg tablet Take 1 tablet (12.5 mg total) by mouth daily. Taking hydrOXYzine (ATARAX) 25 mg tablet Take 1 tablet (25 mg total) by mouth 2 (two) times a day as needed for itching. Taking As Needed lidocaine (LIDODERM) 5 % Place 1 patch on the skin daily. Remove & Discard patch within 12 hours or as directed by 30 patch 0 Taking oslust-igbpjmnk-cjzhtoq (CREON) 3,000-9,500- 15,000 unit capsule,delayed release(DR/EC) Take by mouth. Taking ondansetron ODT (ZOFRAN ODT) 4 mg disintegrating tablet Dissolve 1 tablet (4 mg total) on tongue every 8 (eight) hours as needed for nausea for up to 6 doses. 6 tablet 0 Taking As Needed pantoprazole (PROTONIX) 20 mg EC tablet Take 1 tablet (20 mg total) by mouth in the morning. Taking sertraline (ZOLOFT) 50 mg tablet Take 1 tablet (50 mg total) by mouth in the morning. Taking traZODone (DESYREL) 50 mg tablet Take 1 tablet (50 mg total) by mouth daily as needed. Taking As Needed Current Medications: @MEDSCURRENTMD@ PRNs: [Transfer Hold] acetaminophen, 650 mg, Q6H PRN [Transfer Hold] alum-mag hydroxide-simeth, 30 mL, PCHSP dextrose 5 % in water, 100 mL/hr, Continuous PRN dextrose 50 % in water (D50W), 25 mL, PRN glucagon (human recombinant), 1 mg, PRN lidocaine PF, 0.1 mL, PRN [Transfer Hold] magnesium sulfate, 2,000 mg, PRN [Transfer Hold] magnesium sulfate, 4,000 mg, PRN [Transfer Hold] meclizine, 25 mg, TID PRN [Transfer Hold] morphine injection, 2 mg, Q4H PRN [Transfer Hold] ondansetron, 4 mg, Q4H PRN [Transfer Hold] potassium chloride, 30-40 mEq, PRN Or [Transfer Hold] potassium chloride, 30-40 mEq, PRN Or [Transfer Hold] potassium chloride IV (Adult), 10 mEq, PRN [Transfer Hold] sennosides-docusate sodium, 1 tablet, Q12H PRN [Transfer Hold] sodium chloride, 3 mL, PRN [Transfer Hold] sodium chloride, 3 mL, PRN sodium chloride, 3 mL, PRN Allergies: No Known Allergies Physical VITALS: BP 122/89 Pulse 77 Temp 36.6 ??C (97.9 ??F) (Tympanic) Resp 16 Ht 190.5 cm (6' 3 ) Wt 100.4 kg (221 lb 5.5 oz) SpO2 96% BMI 27.67 kg/m?? CONSTITUTIONAL: awake, alert and no apparent distress LUNGS: No increased work of breathing, good air exchange, clear to auscultation bilaterally, no crackles or wheezing CARDIOVASCULAR: regular rate and rhythm, normal S1 and S2 ABDOMEN: normal bowel sounds, soft, non-distended and non-tender NEURO: no focal deficits, moves all 4 extremities spontaneously LABS AND IMAGING No results found for: INR Lab Results Component Value Date HGB 8.5 (L) 01/22/2025 HGB 7.9 (L) 01/21/2025 HGB 8.4 (L) 01/21/2025 Lab Results Component Value Date PLT 213 01/22/2025 PLT 208 01/20/2025 PLT 197 01/19/2025 No components found for: CREAT No results found for: NA No components found for: TBILI CBC: Lab Results Component Value Date WBC 4.0 01/22/2025 HGB 8.5 (L) 01/22/2025 HCT 25.5 (L) 01/22/2025 MCV 73 (L) 01/22/2025 RDW 15.8 (H) 01/22/2025 PLT 213 01/22/2025 CMP: Lab Results Component Value Date K 4.3 01/22/2025 CL 104 01/22/2025 CO2 25 01/22/2025 BUN 12 01/22/2025 GLU 121 (H) 01/22/2025 Magnesium: Lab Results Component Value Date MG 2.2 01/22/2025 Phosphorus: No components found for: PO4 PT/INR: No results found for: INR Cylcosporine - LCMS : No components found for: CSA Tacrolimus STAT : No components found for: FK506 Lipase: No components found for: LIP Magnesium: Lab Results Component Value Date MG 2.2 01/22/2025 Phosphorus: No components found for: PO4 FLP (Lipid Profile): No results found for: CHOL , TRIG , HDL , CHOLHDLR TSH: Lab Results Component Value Date TSH 2.17 01/20/2025 VITAMIN B12: No components found for: B12 FOLATE: No results found for: FOLATE FERRITIN: Lab Results Component Value Date FERRITIN 83 01/19/2025 Fibrinogen Level: No results found for: FIB Consults IP CONSULT TO GASTROENTEROLOGY ASSESSMENT AND PLAN Principal Problem: GI bleed Stable hemoglobin. Fecal occult blood testing positive. 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 Abdominal pain. The patient is set up for EGD for diagnostic/therapeutic purposes today. On Protonix drip. Discussed with patient the rationale for the procedure along with risks and benefits of the EGD including but not limited to inducing bleeding or inability to control bleed that might require surgeryor IR for embolization,?injury secondary to positioning,?stroke, embolism, infection, perforation that may require Surgery, stroke, embolism, reaction to the medications given, aspiration, pulmonary/cardiac arrest/. Patient agreeable to proceed with EGD with bleeding endoscopic?interventions. All questions and concerns addressed.? This note is dictated with the use of Windation, a computer voice recognition software. Quite often unanticipated grammatical, syntax, homophones, and other interpretive errors are inadvertently transcribed by the computer software. Please disregard these errors and please excuse any errors that haveescaped final proofreading. Austyn Enamorado MD, MPH Gastroenterology & Hepatology [facility], [place] [id number] [facility], [address] [place] [address] PH: [phone] * Napoleon Klein MD - 01/21/2025 1:00 PM EST Images from the original note were not included. [facility] INTERNAL MEDIC[facility] [address] [facility] [id number] Hospital Medicine History & Physical Patient: Stanford Mccray Date of : 1980 Room: PCP: NEVILLE FRENCH Admission date: 01/21/2025 4:49 AM Encounter date: 01/22/25 Hospital Day: 2 SUBJECTIVE Stanford Mccray is a 44 y.o. male who presents as a transfer from [facility]. Patient reports he had dizziness for the last couple days has not been able to eat had 2 black tarry stools. Patient reports he just has not felt well. Patient reports he follows with GI has been a couple years in [facility] patient is noted to be ill-appearing with a hemoglobin of 8.8 in theER since dropped to 8.4. Patient was started on Protonix drip has not had a stool here yet to check for an occult. Patient did have a negative occult a couple days ago. Patient is also noted to have an acute cystitis with hematuria Rocephin was added urine cultures pending. Patient had a history ofchronic pancreatitis from a necrotizing gallstone. hepatitis panel as well which was negative. Today patient is resting in bed. Patient states he is not feeling well. Patient admits to generalized abdominal tenderness throughout whole abdomen. Patient admits to nausea. Patient is unsure of when his last BM was. Patient is seen by GI physician. Protonix drip continues. Patient will go for EGDtomorrow. Attempted to try to do EGD today but was unsuccessful due to scheduling. NPO after midnight. Allergies: Patient has no known allergies. Prior to Admission medications Medication Sig Start Date End Date Taking? Authorizing Provider hydroCHLOROthiazide (HYDRODIURIL) 12.5 mg tablet Take 1 tablet (12.5 mg total) by mouth daily. 09/01/23 Yes Not In System Ref Prov hydrOXYzine (ATARAX) 25 mg tablet Take 1 tablet (25 mg total) by mouth 2 (two) times a day as needed for itching. Yes Not In System Ref Prov lidocaine (LIDODERM) 5 % Place 1 patch on the skin daily. Remove & Discard patch within 12 hours or as directed by 01/17/24 Yes Johnna Mcpherson APRN-WAI idcncy-bgsewxwg-oqmxvpg (CREON) 3,000-9,500- 15,000 unit capsule,delayed release(DR/EC) Take by mouth. Yes Not In System Ref Prov ondansetron ODT (ZOFRAN ODT) 4 mg disintegrating tablet Dissolve 1 tablet (4 mg total) on tongue every 8 (eight) hours as needed for nausea for up to 6 doses. 01/17/25 Yes Gilson Cabrera, pantoprazole (PROTONIX) 20 mg EC tablet Take 1 tablet (20 mg total) by mouth in the morning. 08/11/23Yes Not In System Ref Prov sertraline (ZOLOFT) 50 mg tablet Take 1 tablet (50 mg total) by mouth in the morning. 04/10/23 Yes Not In System Ref Prov traZODone (DESYREL) 50 mg tablet Take 1 tablet (50 mg total) by mouth daily as needed. Yes Not In System Ref Prov Code Status: Full Code Past Medical History: Patient has a past [...] currently use drugs. Review of Systems Constitutional: Negative for activity change and fatigue. HENT: Negative for congestion and sore throat. Respiratory: Negative for cough and shortness of breath. Cardiovascular: Negative for chest pain and palpitations. Gastrointestinal: Positive for abdominal pain and nausea. Genitourinary: Negative for difficulty urinating and dysuria. Musculoskeletal: Negative for arthralgias and myalgias. Skin: Negative for rash. Neurological: Negative for dizziness and light-headedness. Psychiatric/Behavioral: Negative for agitation and confusion. OBJECTIVE BP 114/75 Pulse 71 Temp 36.7 ??C (98.1 ??F) (Oral) Resp 20 Ht 190.5 cm (6' 3 ) Wt 100.4 kg (221 lb 5.5 oz) SpO2 96% BMI 27.67 kg/m?? Temp: [36.3 ??C (97.3 ??F)-37.3 ??C (99.1 ??F)] 36.7 ??C (98.1 ??F) Pulse: [57-78] 71 Resp: [16-31] 20 BP: (92-127)/(53-92) 114/75 SpO2: [92 %-97 %] 96 % O2 Device: None (Room air) Intake/Output Summary (Last 24 hours) at 01/22/20251957 Last data filed at 01/22/2025 1654 Gross per 24 hour Intake 1196.54 ml Output 1630 ml Net -433.46 ml Physical Exam Constitutional: Appearance: Normal appearance. Eyes: Pupils: Pupils are equal, round, and reactive to light. Cardiovascular: Rate and Rhythm: Normal rate and regular rhythm. Pulses: Normal pulses. Heart sounds: Normal heart sounds. Pulmonary: Effort: Pulmonary effort is normal. Breath sounds: Normal breath sounds. Abdominal: General: Bowel sounds are normal. Palpations: Abdomen is soft. Tenderness: There is abdominal tenderness. Musculoskeletal: Cervical back: Normal range of motion and neck supple. Right lower leg: No edema. Left lower leg: No edema. Skin: General: Skin is warm and dry. Coloration: Skin is pale. Neurological: General: No focal deficit present. Mental Status: He is alert and oriented to person, place, and time. Psychiatric: Comments: Mild anger/agitation Medications Scheduled: pantoprazole, 40 mg, oral, BID AC sodium chloride, 3 mL, intravenous, Q12H ZACK traZODone, 50 mg, oral, Nightly Infusions: As Needed: acetaminophen alum-mag hydroxide-simeth magnesium sulfate magnesium sulfate meclizine morphine injection ondansetron potassium chloride OR potassium chloride OR potassium chloride IV (Adult) sennosides-docusate sodium sodium chloride sodium chloride Allergies: Patient has no known allergies. Labs Recent Results (from the past 24 hours) Occult blood x 1, stool Collection Time: 01/21/25 10:25 PM Result Value Ref Range FECAL OCCULT BLOOD Positive (A) Negative Comprehensive metabolic panel Collection Time: 01/22/25 5:16 AM Result Value Ref Range SODIUM 136 134 - 146 mmol/L POTASSIUM 4.3 3.5 - 5.0 mmol/L CHLORIDE 104 98 - 109 mmol/L CARBON DIOXIDE 25 22 - 32 mmol/L ANION GAP 7 5 - 15 mmol/L BLOOD UREA NITROGEN 12 5 - 23 mg/dL CREATININE 0.91 0.70 - 1.20 mg/dL GLUCOSE 121 (H) 65 - 99 mg/dL CALCIUM 8.2 (L) 8.5 - 10.5 mg/dL TOTAL PROTEIN 6.3 6.0 - 8.0 g/dL ALBUMIN 2.9 (L) 3.2 - 5.3 g/dL ALKALINE PHOSPHATASE 123 39 - 130 U/L AST 30 <=41 U/L ALT 44 (H) <=40 U/L BILIRUBIN,TOTAL 0.6 0.3 - 1.2 mg/dL EGFR Non-Race Dependent >90 >=60 ml/min/1.73sq.m Magnesium Collection Time: 01/22/25 5:16 AM Result Value Ref Range MAGNESIUM 2.2 1.8 - 2.6 mg/dL CBC auto differential Collection Time: 01/22/25 5:16 AM Result Value Ref Range WBC 4.0 4 - 11 10^9/L RBC Count 3.48 (L) 4.1 - 5.7 10^12/L Hemoglobin 8.5 (L) 13 - 17 g/dL Hematocrit 25.5 (L) 39 - 50 % MCV 73 (L) 80 - 100 fL MCH 24.4 (L) 27 - 34 pg MCHC 33.4 32 - 36 g/dL RDW 15.8 (H) 11.5 - 15 % Platelet Count 213 150 - 450 10^9/L MPV 7.8 7 - 12 fL Neutrophils % 70.7 % Lymphocytes % 14.6 % Monocytes % 10.7 % Eosinophils % 3.5 % Basophils % 0.5 % Neutrophils Absolute (A) 2.8 1.5 - 6.6 10^9/L Lymphocytes Absolute 0.6 (L) 1.0 - 3.5 10^9/L Monocytes Absolute 0.4 0.0 - 0.9 10^9/L Eosinophils Absolute 0.1 0.0 - 0.4 10^9/L Basophils Absolute 0.0 0.0 - 0.2 10^9/L Differential Type AUTOMATED DIFFERENTIAL Hemoglobin and hematocrit, blood Collection Time: 01/22/25 4:55 PM Result Value Ref Range Hemoglobin 8.4 (L) 13 - 17 g/dL Hematocrit 26.2 (L) 39 - 50 % Radiology CT [...] IMPRESSION: * No acute intracranial abnormality by CT . Finalized by Saleem Dalton MD on 01/19/2025 [...] 10:23 PM HOSPITAL PROBLEM LIST Principal Problem: GI bleed Active Problems: Symptomatic anemia Dizziness Hypokalemia Hyponatremia Hypochloremia Elevated LFTs Hepatic steatosis ASSESSMENT & PLAN Anemia GI bleed Dizziness -GI consult -trend H&H -check occult -iron 12 iron sats 3 start IV Venofer -does look like back January 17 hemoglobin was 9.7 downward trend since>8.8>8.4>7.9 -on Protonix drip -gastric soft diet today then NPO after 12 mid -EGD tomorrow - normal saline at 100 an hour -add Antivert p.r.n. 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 Chart reviewed. Admission orders placed. Home medications reconciled. VTE chemoprophylaxis: no pharmacologic prophylaxis due to EGD in am. GI prophylaxis: add pantoprazole. DC planning: pending clinical course. Medically Ready for Discharge: Anticipated Tomorrow NEVILLE Littlejohn 01/22/2025 7:58 PM [facility] 7AM-7PM & 7PM-7AM: EpicChat or page through On-Call Finder. NEVILLE Littlejohn 01/21/251928 Physician Attestation I, Napoleon Klein MD, personally [...] documented in this encounter Consult Notes * Austyn Enamorado MD - 01/21/2025 9:09 AM ESTAssociated Order(s): IP CONSULT TO GASTROENTEROLOGY Images from the original note were not included. [facility] Initial Consultation Note IDENTIFYING DATA PATIENT: Stanford Mccray ADMIT DATE: 01/21/2025 TIME OF EVALUATION: 01/21/2025 9:09 AM Reason for Consult: Acute symptomatic anemia HISTORY OF PRESENT ILLNESS Stanford Mccray is a 44 y.o. male who has a past medical history of Hypertension. He GASTROENTEROLOGY/HEPATOLOGY HISTORY 44 years old male patient transferred from [facility] regarding acute symptomatic anemia. Patient has a had episodes of pancreatitis since 2019. He is to follow up with Gastroenterology at [facility]. He underwent EGD colonoscopy and EUS in 2019. He is not reporting any episodes of melena hematochezia coffee-ground emesis or hematemesis. Patient has not had a bowel movement in about a week. CT imaging performed showing chronic pancreatitis with the clotting splenic vein occlusion with a pseudocyst at the pancreatic tail and greater curvature of the stomach. Splenomegaly. PAST MEDICAL, SURGICAL, FAMILY, and SOCIAL HISTORY Past Medical History: Diagnosis Date Hypertension Past Surgical History: Procedure Laterality Date CYST REMOVAL cyst removal pancreas No family history on file. Social History: Social History Tobacco Use Smoking status: Former Types: Cigarettes Smokeless tobacco: Current Substance Use Topics Alcohol use: Not Currently Drug use: Not Currently MEDICATIONS Allergies: No Known Allergies Medications Prior to Admission Medication Sig Dispense Refill Last Dose/Taking hydroCHLOROthiazide (HYDRODIURIL) 12.5 mg tablet Take 1 tablet (12.5 mg total) by mouth daily. Taking hydrOXYzine (ATARAX) 25 mg tablet Take 1 tablet (25 mg total) by mouth 2 (two) times a day as needed for itching. Taking As Needed lidocaine (LIDODERM) 5 % Place 1 patch on the skin daily. Remove & Discard patch within 12 hours or as directed by MD 30 patch 0 Taking mvnzit-nzznkqyb-qaxnqcu (CREON) 3,000-9,500- 15,000 unit capsule,delayed release(DR/EC) Take by mouth. Taking ondansetron ODT (ZOFRAN ODT) 4 mg disintegrating tablet Dissolve 1 tablet (4 mg total) on tongue every 8 (eight) hours as needed for nausea for up to 6 doses. 6 tablet 0 Taking As Needed pantoprazole (PROTONIX) 20 mg EC tablet Take 1 tablet (20 mg total) by mouth in the morning. Taking sertraline (ZOLOFT) 50 mg tablet Take 1 tablet (50 mg total) by mouth in the morning. Taking traZODone (DESYREL) 50 mg tablet Take 1 tablet (50 mg total) by mouth daily as needed. Taking As Needed Current Medications: Current Facility-Administered Medications: acetaminophen (TYLENOL) tablet 650 mg, 650 mg, oral, Q6H PRN, NEVILLE Bhandari alum-mag hydroxide-simeth (MAALOX) 200-200-20 mg/5 mL suspension 30 mL, 30 mL, oral, PCHSP, NEVILLE Bhandari cefTRIAXone (ROCEPHIN) 1,000 mg in sodium chloride 0.9 % 50 mL IVPB W/ADAPTER, 1,000 mg, intravenous, Q24H, Gabe Uribe APRN-WAI iron sucrose (VENOFER) IVPB 200 mg/110 mL in sodium chloride 0.9% (CMPD premix), 200 mg, intravenous, Daily, Gabe Uribe APRN-AWI magnesium sulfate IVPB 2000 mg/50 mL in iso-osmotic water (40 mg/mL premix), 2,000 mg, intravenous,PRN, Gabe Uribe APRN-WAI magnesium sulfate IVPB 4000 mg/100 mL in iso-osmotic water (40 mg/mL premix), 4,000 mg, intravenous, PRN, Gabe Uribe APRN-WAI meclizine (ANTIVERT) tablet 25 mg, 25 mg, oral, TID PRN, Gabe Uribe APRN-WAI morphine injection 2 mg, 2 mg, intravenous, Q4H PRN, Gabe Uribe APRN-WAI, 2 mg at 01/21/25 0559 ondansetron (PF) (ZOFRAN) injection 4 mg, 4 mg, intravenous, Q4H PRN, Gabe Uribe APRN-WAI pantoprazole (PROTONIX) 80 mg in sodium chloride 0.9 % 100 mL (0.8 mg/mL) infusion, 8 mg/hr, intravenous, Continuous, NEVILLE Bhandari, Last Rate: 10 mL/hr at 01/21/25 0904, 8 mg/hr at 01/21/25 0904 potassium chloride (K-TAB,KLOR-CON) CR tablet 30-40 mEq, 30-40 mEq, oral, PRN OR potassium chloride (KAYCIEL) 20 mEq/15 mL solution 30-40 mEq, 30-40 mEq, oral, PRN OR potassium chloride IVPB 10 mEq/100 mL in water (0.1 mEq/mL premix), 10 mEq, intravenous, PRN, NEVILLE Bhandari sennosides-docusate sodium (SENOKOT-S) 8.6-50 mg 1 tablet, 1 tablet, oral, Q12H PRN, Gabe Uribe APRN-WAI sodium chloride 0.9 % flush 3 mL, 3 mL, intravenous, PRN, Taeler Uribe, SWITCHBOARD MANAGER-CRYSTAL GROWING TECHNICIAN sodium chloride 0.9 % flush 3 mL, 3 mL, intravenous, PRN, Castrocleopatralizbeth Uribe, SWITCHBOARD MANAGER-CRYSTAL GROWING TECHNICIAN sodium chloride 0.9 % flush 3 mL, 3 mL, intravenous, Q12H ZACK, Jianlizbeth Uribe, SWITCHBOARD MANAGER-CRYSTAL GROWING TECHNICIAN sodium chloride 0.9 % infusion, 50 mL/hr, intravenous, Continuous, Gabe LENCHO UribeN-CRYSTAL GROWING TECHNICIAN, Last Rate: 50 mL/hr at 01/21/25 06, 50 mL/hr at 01/21/25 06 PRNs: acetaminophen, 650 mg, Q6H PRN alum-mag hydroxide-simeth, 30 mL, PCHSP magnesium sulfate, 2,000 mg, PRN magnesium sulfate, 4,000 mg, PRN meclizine, 25 mg, TID PRN morphine injection, 2 mg, Q4H PRN ondansetron, 4 mg, Q4H PRN potassium chloride, 30-40 mEq, PRN Or potassium chloride, 30-40 mEq, PRN Or potassium chloride IV (Adult), 10 mEq, PRN sennosides-docusate sodium, 1 tablet, Q12H PRN sodium chloride, 3 mL, PRN sodium chloride, 3 mL, PRN REVIEW OF SYSTEMS See HPI, otherwise ROS negative as below CONSTITUTIONAL: negative HEENT: negative RESPIRATORY: negative CARDIOVASCULAR: negative GASTROINTESTINAL: as in HPI GENITOURINARY: negative INTEGUMENT/BREAST: negative HEMATOLOGIC/LYMPHATIC: negative ALLERGIC/IMMUNOLOGIC: negative ENDOCRINE: negative MUSCULOSKELETAL: negative NEUROLOGICAL: negative BEHAVIOR/PSYCH: negative OBJECTIVE DATA Vitals: BP 128/71 Pulse 60 Temp 36.5 ??C (97.7 ??F) (Axillary) Resp 20 Ht 190.5 cm (6' 3 ) Wt 104kg (229 lb 4.5 oz) SpO2 99% BMI 28.66 kg/m?? CONSTITUTIONAL: awake, alert and no apparent distress LUNGS: No increased work of breathing, good air exchange, clear to auscultation bilaterally, no crackles or wheezing CARDIOVASCULAR: regular rate and rhythm, normal S1 and S2 ABDOMEN: normal bowel sounds, soft, non-distended and non-tender NEURO: no focal deficits, moves all 4 extremities spontaneously LABS AND IMAGING CBC: Lab Results Component Value Date WBC 8.2 01/20/2025 HGB 8.1 (L) 01/20/2025 HCT 24.9 (L) 01/20/2025 MCV 73 (L) 01/20/2025 PLT 208 01/20/2025 CMP: Lab Results Component Value Date K 3.8 01/20/2025 CL 96 (L) 01/20/2025 CO2 26 01/20/2025 BUN 11 01/20/2025 GLU 102 (H) 01/20/2025 Lipase: Lab Results Component Value Date LIPASE 32 01/20/2025 PT/INR: No results found for: INR , PROTIME TSH: Lab Results Component Value Date TSH 2.17 01/20/2025 VITAMIN B12: No results found for: [id number] FOLATE: No results found for: FOLATE IRON: Lab Results Component Value Date IRON 12 (L) 01/19/2025 TIBC 388 01/19/2025 FERRITIN 83 01/19/2025 No results found for: ANASCREEN MICRO Microbiology Results Procedure Component Value Units Date/Time Urine Culture Urine, Clean Catch Midstream [[id number]] Collected: 01/20/25 0918 Specimen: Urine, Clean Catch Midstream Updated: 01/21/25 0818 CULTURE RESULTS <10,000 ORGANISMS/mL NORMAL URO GENITAL TYSHAWN SARS/FLU A+B/RSV by NAAT/Molecular (M4RT Collection Tube) [[id number]] (Normal) Collected: 01/19/25 1317 Specimen: Swab from Nasopharynx Updated: 01/19/25 1401 FLU A PCR Negative FLU B PCR Negative RSV BY PCR Negative SARS COV 2 BY PCR Not Detected Narrative: The Xpert Xpress SARS-CoV-2/Flu/RSV Plus test is [...] operators who are performing tests using either SPORTLOGiQ DX or Everlater systems and islimited to laboratories that meet [...] with specimenrepeat. Fact Sheet for Healthcare Providers: https://www.fda.gov/media/978958/download Fact Sheet for Patients: https://www.fda.gov/media/343736/download IMAGING: CT brain without contrast Result Date: 01/19/2025 [...] Afshin Mahmood MD on 01/17/2025 10:23 PM Consults IP CONSULT TO GASTROENTEROLOGY ASSESSMENT AND PLAN Principal Problem: GI bleed Acute symptomatic anemia in the setting of history of chronic pancreatitis with splenic vein thrombosis and pancreatic pseudocyst, no overt GI bleeding symptoms, hemodynamically stable. Last EGD colonoscopy 2018. Recommend Protonix 40 mg twice daily IV. Trend hemoglobin levels transfuse accordingly. We will plan on EGD for diagnostic/therapeutic purposes today if call OR available. ? I discussed with the patient that he needs to follow up with his showcase maker at [facility] regarding chronic pancreatitis and pseudocyst from the hospital. If you have any questions or need any further information, please feel free to contact the GI Consult Service. Thank you for allowing us to participate in the care of Stanford Mccray. This note is dictated with the use of Windation, a computer voice recognition software. Quite often unanticipated grammatical, syntax, homophones, and other interpretive errors are inadvertently transcribed by the computer software. Please disregard these errors and please excuse any errors that haveescaped final proofreading. Austyn Enamorado MD, MPH Gastroenterology & Hepatology [facility], [place] [id number] [facility], [address] [place] [address] PH: [phone] documented in this encounter Miscellaneous Notes * Brief Op Note - Austyn Enamorado MD - 01/22/2025 1:11 PM EST BRIEF GI NOTE This patient had an endoscopic procedure today. The report should be available momentarily. To review this endoscopy report, including the procedure results and recommendations following the procedure, please click Chart Review tab along the top line -> Procedure tab below this ->the relevant procedure and date. At the bottom of this report, there is generally a blue hyperlink labeled Endoscopy Op Note with the same date which links to the same procedure report including photos. Sometimes, and for unclear reasons, this is not present, so alternatively to review images from the report, click Chart Review tab along the top line -> Imaging tab below this ->the relevant procedure and date->a blue hyperlink labeled Show Images for Report. Please feel free to contact our inpatient Gastroenterology team with any additional questions or concerns. IN SUMMARY: Irregular Z-line, esophagus. Antrum erosive gastropathy. Biopsies obtained to rule out H. pylori. No evidence of old or active bleeding. Normal duodenal mucosa. RECOMMENDATION: Advance diet as tolerated. Follow up on the pathology results of the biopsies obtained. Avoid NSAIDs. Trend hemoglobin levels daily. Pantoprazole 40 mg twice daily. * Discharge Planning Note - Latrice Rangel RN - 01/22/2025 12:59 PM EST Images from the original note were not included. Ongoing Assessment for Discharge Needs Reviewed discharge milestones and patient needs related to discharge plan. Current estimated discharge date of Jan 22, 2025 has been reviewed by treatment team. Patient's POC discussed in DTR's with RN. CN met with the patient at the bedside. Patient admitted for GI bleed. Off unit at this time for EGD. CN will continue to follow for needs. Plan for discharge is Home with Self Care. - Latrice Rangel RN 01/22/25 1:00 PM Ongoing Assessment for Discharge Needs Flowsheet Row Most Recent Value Referral To Community Referrals / Resources Provided Denies needs Services Requested Patient expects to be discharged to: Home with Self Care Does the patient wish to have family/friend/caregiver involved in their discharge planning? No, thepatient does not wish to have family/friend/caregiver involved in their discharge planning Discharge Disposition Home with self care Does the patient need discharge transportation arranged? No Patient choice offered Yes List Provided Patient declined Patient Declined Other (must state reason) [Patient declines need] DC Planning Complete Discharge Milestones Yes * Plan of Care - Lotus Anthony RN - 01/22/2025 10:37 AM EST Problem: Pain Goal: Patient goal is pain score less than 4, able to rest, and participant in treatment plan as appropriate Description: INTERVENTIONS: 1. Encourage patient or legal kiosk sales representative to report early pain and ask [...] per policy 9. Teach patient or legal kiosk sales representative interventions for comforting Outcome: Progressing Note: Evaluation of progress towards goal: c/o abdominal pain as well as headache, medicated PRN Problem: Safety Goal: Patient will be injury free during hospitalization Description: INTERVENTIONS: 1. Assess patient's risk for falls and implement fall prevention plan of care per policy 2. Provide and maintain a safe environment 3. Proper use of double Identifiers 4. Medication administration using the 5 rights 5. Hand hygiene 6. Specimens are labeled at the bedside 7. Instruct patient/ patient kiosk sales representative about use of safety devices 8. Include patient/ patient kiosk sales representative in decisions related to safety Outcome: Progressing Note: Evaluation of progress towards goal: Safety maintained; free from falls/ injuries this admission. Continue current fall prevention interventions. Problem: Knowledge Deficit Goal: Patient/patient kiosk sales representative demonstrates understanding of disease process, treatment plan,medications, and discharge instructions Description: INTERVENTIONS 1. Complete learning assessment and assess knowledge base 2. Provide teaching at level of understanding 3. Provide teaching via preferred learning method(s) Outcome: Progressing Note: Evaluation of progress towards goal: POC discussed with patient Problem: Discharge Planning Goal: Discharge to post-acute care, other facility, or home with appropriate resources Description: Patient's goal is: home INTERVENTIONS 1. Conduct assessment to determine patient/family [...] Progressing Note: Evaluation of progress towards goal: will discharge home when medically ready Problem: Infection Goal: Absence of infection during [...] hygiene technique. 7. Identify and instruct patient/patient kiosk sales representative in use of appropriate isolation precautionsfor identified infection/symptoms. 8. Provide and discuss with patient/patient kiosk sales representative on educational MDRO sheet. 9. Encourage and monitor nutritional status daily and consult children's ministries director if indicated. 10. Implement neutropenic guidelines as needed. Outcome: Completed Note: Evaluation of progress towards goal: no s/s infection noted * Plan of Care - Carlos Bazan RN - 01/21/2025 11:24 PM EST Problem: Pain Goal: Patient goal is pain score less than 4, able to rest, and participant in treatment plan as appropriate Description: INTERVENTIONS: 1. Encourage patient or legal kiosk sales representative to report early pain and ask [...] per policy 9. Teach patient or legal kiosk sales representative interventions for comforting Outcome: Progressing Note: Evaluation of progress towards goal: Patient is able to report pain effectively. Pain goal <4/10. Pain medications and comfort measures provided as needed. Patient resting comfortably in bed. Patient verbalizes comfort measures are effective and pain tolerable. Problem: Safety Goal: Patient will be injury free during hospitalization Description: INTERVENTIONS: 1. Assess patient's risk for falls and implement fall prevention plan of care per policy 2. Provide and maintain a safe environment 3. Proper use of double Identifiers 4. Medication administration using the 5 rights 5. Hand hygiene 6. Specimens are labeled at the bedside 7. Instruct patient/ patient kiosk sales representative about use of safety devices 8. Include patient/ patient kiosk sales representative in decisions related to safety Outcome: Progressing Note: Evaluation of progress towards goal: Patient's environment assessed for potential hazards to patient's safety. Patient remained injury free throughout duration of shift. Problem: Knowledge Deficit Goal: Patient/patient kiosk sales representative demonstrates understanding of disease process, treatment plan,medications, and discharge instructions Description: INTERVENTIONS 1. Complete learning assessment and assess knowledge base 2. Provide teaching at level of understanding 3. Provide teaching via preferred learning method(s) Outcome: Progressing Note: Evaluation of progress towards goal: Nurse provided education about care being provided throughout shift. Patient exhibits signs of learning and agrees with POC. * Discharge Planning Note - Latrice Rangel RN - 01/21/2025 10:01 AM EST Images from the original note were not included. Initial Assessment Initial Assessment Flowsheet Row Most Recent Value Patient Information Initial Pre-Hospitalization Assessment Completed? Completed Primary Caregiver Self Support System Spouse/Significant Other Discharge Planning Living Arrangements Spouse/significant other Assistance Needed No needs Type of Residence Other (Comment) [Condo] Private Residence 2 story Residence Accessibility Steps into home Number of Steps 1 Home Care Services No Community Agencies Currently Utilized None Community Referrals / Resources Provided Denies needs Does The Patient Have Existing Home DME? No Will the patient need DME at discharge? No, the patient has no home DME needs currently Stressors Type of stressor Other issues Explain issues Patient is worried about possibility of losing job due to hospitalization. Patient does not qualify for FMLA and states his job doesn't accept work notes for an excuse. 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 Patient Declined Within the past 12 months the food we bought just didn't last and we didn't have money to get more.Patient Declined Hunger Screening Complete? Yes Pt. Eligible for Food / Voucher No If Eligible: Received Food Box Not Offered to Patient Caregiver/Family Member Caregiver/Family Member Lotus Perdomo/Aj Caregiver/Family Member Involved with Current Plan of Care No Caregiver/Support System Limitations Caregiver/Support Systems Limitations (Check All That Apply) No Caregiver Needed Patient/Caregiver Goals Patient/Caregiver Goals Home No Needs Home No Needs Caregiver/Family Community Provider Referral Community Provider Referral None Services Requested Patient expects to be discharged to: Home with Self Care Does the patient wish to have family/friend/caregiver involved in their discharge planning? No, thepatient does not wish to have family/friend/caregiver involved in their discharge planning Discharge Disposition Home with self care Does the patient need discharge transportation arranged? No Patient choice offered Yes List Provided Patient declined Patient Declined Other (must state reason) [Patient declines need] DC Planning Complete Discharge Milestones Yes 3-Midnight Real Estate Listing Consultant met with patient at bedside and introduced self and explained role. Patient admittedfor GI bleed. Patient's PCP Tina Sharon CRYSTAL GROWING TECHNICIAN was confirmed. Patient denies need for assistance scheduling follow-up with PCP. Patient is independent with ADL's and has no DME. No therapy ordered. Per patient report: Smoking- denies ETOH- denies Drugs- denies Patient does not endorse issue obtaining food or medications and all utilities are working. Patientis employed and drives. Aj Gautam to provide transportation at time of discharge. Patient has a16% readmission risk score. Patient continues on IV Rocephin, Iron Sucrose, and Protonix gttp. H&H Q12. Discharge disposition: Home with Self Care. Real Estate Listing Consultant will continue to follow for ongoing discharge transition needs. - Latrice Rangel RN 01/21/25 10:10 AM * Plan of Care - Ramya Bui RN - 01/21/2025 9:00 AM EST Problem: Pain Goal: Patient goal is pain score less than 4, able to rest, and participant in treatment plan as appropriate Description: INTERVENTIONS: 1. Encourage patient or legal kiosk sales representative to report early pain and ask [...] per policy 9. Teach patient or legal kiosk sales representative interventions for comforting Outcome: Progressing Note: Evaluation of progress towards goal: pain assessment completed, ongoing Problem: Safety Goal: Patient will be injury free during hospitalization Description: INTERVENTIONS: 1. Assess patient's risk for falls and implement fall prevention plan of care per policy 2. Provide and maintain a safe environment 3. Proper use of double Identifiers 4. Medication administration using the 5 rights 5. Hand hygiene 6. Specimens are labeled at the bedside 7. Instruct patient/ patient kiosk sales representative about use of safety devices 8. Include patient/ patient kiosk sales representative in decisions related to safety Outcome: Progressing Note: Evaluation of progress towards goal: patient safety maintained Problem: Infection Goal: Absence of infection during [...] hygiene technique. 7. Identify and instruct patient/patient kiosk sales representative in use of appropriate isolation precautionsfor identified infection/symptoms. 8. Provide and discuss with patient/patient kiosk sales representative on educational MDRO sheet. 9. Encourage and monitor nutritional status daily and consult children's ministries director if indicated. 10. Implement neutropenic guidelines as needed. Outcome: Progressing Note: Evaluation of progress towards goal: monitor labs, vs Problem: Knowledge Deficit Goal: Patient/patient kiosk sales representative demonstrates understanding of disease process, treatment plan,medications, and discharge instructions Description: INTERVENTIONS 1. Complete learning assessment and assess knowledge base 2. Provide teaching at level of understanding 3. Provide teaching via preferred learning method(s) Outcome: Progressing Note: Evaluation of progress towards goal: ongoing education Problem: Discharge Planning Goal: Discharge to post-acute [...] Progressing Note: Evaluation of progress towards goal: awaiting d/c plan * Plan of Care - Deepa Purvis RN - 01/21/2025 5:11 AM EST Problem: Pain Goal: Patient goal is pain score less than 4, able to rest, and participant in treatment plan as appropriate Description: INTERVENTIONS: 1. Encourage patient or legal kiosk sales representative to report early pain and ask [...] per policy 9. Teach patient or legal kiosk sales representative interventions for comforting Outcome: Progressing Note: Evaluation of progress towards goal: pt medicated for pain. Problem: Safety Goal: Patient will be injury free during hospitalization Description: INTERVENTIONS: 1. Assess patient's risk for falls and implement fall prevention plan of care per policy 2. Provide and maintain a safe environment 3. Proper use of double Identifiers 4. Medication administration using the 5 rights 5. Hand hygiene 6. Specimens are labeled at the bedside 7. Instruct patient/ patient kiosk sales representative about use of safety devices 8. Include patient/ patient kiosk sales representative in decisions related to safety Outcome: Progressing Note: Evaluation of progress towards goal: pt free of injury. Problem: Infection Goal: Absence of infection during [...] hygiene technique. 7. Identify and instruct patient/patient kiosk sales representative in use of appropriate isolation precautionsfor identified infection/symptoms. 8. Provide and discuss with patient/patient kiosk sales representative on educational MDRO sheet. 9. Encourage and monitor nutritional status daily and consult children's ministries director if indicated. 10. Implement neutropenic guidelines as needed. Outcome: Progressing Note: Evaluation of progress towards goal: meds as ordered. Problem: Knowledge Deficit Goal: Patient/patient kiosk sales representative demonstrates understanding of disease process, treatment plan,medications, and discharge instructions Description: INTERVENTIONS 1. Complete learning assessment and assess knowledge base 2. Provide teaching at level of understanding 3. Provide teaching via preferred learning method(s) Outcome: Progressing Note: Evaluation of progress towards goal: pt updated on plan of care. Problem: Knowledge Deficit Goal: Patient/patient kiosk sales representative demonstrates understanding of disease process, treatment plan,medications, and discharge instructions Description: INTERVENTIONS 1. Complete learning assessment and assess knowledge base 2. Provide teaching at level of understanding 3. Provide teaching via preferred learning method(s) Outcome: Progressing Note: Evaluation of progress towards goal: pt updated on plan of care. Problem: Discharge Planning Goal: Discharge to post-acute [...] Progressing Note: Evaluation of progress towards goal: d/c home. documented in this encounter Plan of Treatment NameTypePriorityAssociated DiagnosesDate/TimeSurgical PathologyPathology and RkzlphykBdtgfzy42/19/2025 1:18 PM ESTNameTypePriorityAssociated DiagnosesOrder ScheduleSurgical PathologyPathology and CytologyRoutineRelease Upon Ordering for 1 Occurrences starting 01/22/2025, 1 completeddocumented as of this encounter Goals GoalPatient Goal TypeAssociated ProblemsRecent ProgressPatient-Stated?Author Home Latrice Prakash RN Note: Evaluation of progress towards goal: Patient plans to discharge Home with Self Care. documented as of this encounter Procedures Procedure NamePriorityDate/TimeAssociated DiagnosisCommentsHEMOGLOBIN AND HEMATOCRIT, GJEMNYbevixg15/19/2025 4:55 PM EST PROVATION BREPbbutau18/19/2025 1:26 PM EST NV ESOPHAGOGASTRODUODENOSCOPY TRANSORAL GLHRMQQSZW11/19/2025 1:11 PM EST GI Bleed EGD103/24/2024 12:56 PM EST PROVATION CYLFfwhgmi85/19/2025 12:10 PM EST PROVATION TDVYpddqda02/19/2025 11:24 AM EST CBC WITH AUTO ZKJGRYNKUEGHColoesu13/19/2025 5:16 AM EST QBSZZCHDPYtesocc37/19/2025 5:16 AM EST COMPREHENSIVE METABOLIC MTOSVRgeptsv10/19/2025 5:16 AM EST OCCULT BLOOD X 1, DCVWHRwjqvyc36/18/2025 10:25 PM EST HEMOGLOBIN AND HEMATOCRIT, ADQWSJllhzkn17/18/2025 4:51 PM EST HEMOGLOBIN AND HEMATOCRIT, CVEQTNqowsyy12/18/2025 11:17 AM EST COMPREHENSIVE METABOLIC PANELAdd-On01/21/2025 11:17 AM EST documented in this encounter Results * (ABNORMAL) Hemoglobin and hematocrit, blood (01/22/2025 4:55 PM EST)Component ValueRef RangeTest MethodAnalysis TimePerformed AtPathologist Signature Hemoglobin8.4(L)13 - 17 g/dL01/22/2025 5:04 PM [facility] Ydcpvvmrjw25.2(L)39 - 50 %01/22/2025 5:04 PM [facility] Specimen (Source)Anatomical Location / LateralityCollection Method / Volume Collection TimeReceived TimeBloodVenous blood / UnknownVenipuncture / Unknown 01/22/2025 4:55 PM EST01/22/2025 5:00 PM EST Narrative Authorizing ProviderResult TypeResult StatusTasandrine Uribe SWITCHBOARD MANAGER-CNPLAB BLOOD ORDERABLESFinal ResultPerforming OrganizationAddressCity/State/ZIP CodePhone Number [facility] [address] [place] [address], * EGD Report (01/22/2025 1:26 PM EST)Specimen (Source)Anatomical Location / LateralityCollection Method / VolumeCollection TimeReceived Time Narrative SYSTEMGENERATED, DOCUMENTATION - 01/22/2025 1:26 PM EST This order has been auto-finalized for image and report archival in PACs. *For full report details, please reach out to your physician. ??This image is visible to you in MyChart.* Authorizing ProviderResult TypeResult StatusMoteddy Enamorado MDIMG OR IMG ORDERABLESFinal Result * EGD (01/22/2025 12:56 PM EST)Specimen (Source)Anatomical Location / Laterality Collection Method / VolumeCollection TimeReceived Time01/22/2025 12:56 PM EST Narrative [facility] - 01/22/2025 1:36 PM EST [facility] Patient Name: Stanford Mcrcay ?? Procedure Date No Time: 01/22/2025 ?? CSN: [id number] Date of : 1980 Admit Type: Outpatient Age: 44 Gender: Male Attending MD: Austyn Prince , , Procedure: ? 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 Austyn Prince Referring MD: ?Johnna Garcias Moderate Sedation: ? Medicines: ? Monitored Anesthesia Care Complications: ? No immediate complications. Procedure: ? After obtaining informed consent, the endoscope was ? passed under direct vision. Throughout the procedure, ? the patient's blood pressure, pulse, and oxygen ? saturations were monitored continuously. The Endoscope ? was introduced through the mouth, and advanced to the ? third part of duodenum. The upper GI endoscopy was ? accomplished without difficulty. The patient tolerated ? the procedure well. Findings: ? The Z-line was irregular. ? Multiple dispersed erosions with no stigmata of recent bleeding were ? found in the gastric antrum. Biopsies were taken with a cold forceps for ? Helicobacter pylori testing. ? The examined duodenum was normal. Estimated Blood Loss: ??Estimated blood loss was minimal. Impression: ?- Z-line irregular. ? - Erosive gastropathy with no stigmata of recent ? bleeding. Biopsied. ? - Normal examined duodenum. Recommendation: ?- [facility]. ? - Advance diet as tolerated. ? - No ibuprofen, naproxen, or other non-steroidal ? anti-inflammatory drugs. ? - Use Protonix (pantoprazole) 40 mg PO BID. ? - Await pathology results. Procedure Code(s): ? --- Professional --- ? 65885, Esophagogastroduodenoscopy, flexible, ? transoral; with biopsy, single or multiple Diagnosis Code(s): ? --- Professional --- ? K22.89, Other specified disease of esophagus ? K31.89, Other diseases of stomach and duodenum ? 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 All rights reserved. The codes documented in this report are preliminary and upon crate builder review may be revised to meet current compliance requirements. MD Austyn Tatum, 01/22/2025 1:35:33 PM Number of Addenda: 0 Note Initiated On: 01/22/2025 12:56 PM Procedure Note Austyn Garcia MD - 01/22/2025 [facility] Patient Name: Stanford Mccray Procedure Date No Time: 01/22/2025 CSN: [id number] Date of : 1980 Admit Type: Outpatient Age: 44 Gender: Male Attending MD: Austyn Prince , , Procedure: Upper GI endoscopy Indications: Iron deficiency anemia secondary to chronic bloodloss Providers: Austyn Prince Referring MD: Johnna Garcias Moderate Sedation: Medicines: Monitored Anesthesia Care Complications: No immediate complications. Procedure: After obtaining informed consent, the endoscope was passed under direct vision. Throughout theprocedure, the patient's blood pressure, pulse, and oxygen saturations were monitored continuously. TheEndoscope was introduced through the mouth, and advanced tothe third part of duodenum. The upper GI endoscopy was accomplished without difficulty. The patienttolerated the procedure well. Findings: The Z-line was irregular. Multiple dispersed erosions with no stigmata of recent bleeding were found in the gastric antrum. Biopsies were taken with a cold forcepsfor Helicobacter pylori testing. The examined duodenum was normal. Estimated Blood Loss: Estimated blood loss was minimal. Impression: - Z-line irregular. - Erosive gastropathy with no stigmata of recent bleeding. Biopsied. - Normal examined duodenum. Recommendation: - [facility] - Advance diet as tolerated. - No ibuprofen, naproxen, or other non-steroidal anti-inflammatory drugs. - Use Protonix (pantoprazole) 40 mg PO BID. - Await pathology results. 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 All rights reserved. The codes documented in this report are preliminary and upon crate builder reviewmay be revised to meet current compliance requirements. MD Austyn Tatum, 01/22/2025 1:35:33 PM Number of Addenda: 0 Note Initiated On: 01/22/2025 12:56 PM Authorizing ProviderResult TypeResult StatusMohamcarmelina Enamorado MDGI PROCEDURE ORDERABLESFinal ResultPerforming OrganizationAddressCity/State/ZIP CodePhone Number [facility] * EGD Report (01/22/2025 12:10 PM EST)Specimen (Source)Anatomical Location / LateralityCollection Method / VolumeCollection TimeReceived Time Narrative SYSTEMGENERATED, DOCUMENTATION - 01/22/2025 12:10 PM EST This order has been auto-finalized for image and report archival in PACs. *For full report details, please reach out to your physician. ??This image is visible to you in MyChart.* Authorizing ProviderResult TypeResult StatusMolehigh valley hospital - muhlenbergad Ze Enamorado MDIMG OR IMG ORDERABLESFinal Result * EGD Report (01/22/2025 11:24 AM EST)Specimen (Source)Anatomical Location / LateralityCollection Method / VolumeCollection TimeReceived Time Narrative SYSTEMGENERATED, DOCUMENTATION - 01/22/2025 11:24 AM EST This order has been auto-finalized for image and report archival in PACs. *For full report details, please reach out to your physician. ??This image is visible to you in MyChart.* Authorizing ProviderResult TypeResult StatusMoMiller [facility] Ze Enamorado MDIMG OR IMG ORDERABLESFinal Result * (ABNORMAL) CBC auto differential (01/22/2025 5:16 AM EST)ComponentValueRef RangeTest MethodAnalysis TimePerformed AtPathologist SignatureWBC4.04 - 11 10^9/L103/24/2024 5:54 AM [facility]BC Count3.48(L)4.1 - 5.7 10^12/L103/24/2024 5:54 AM [facility]Hemoglobin8.5(L)13 - 17 g/dL01/22/2025 5:54 AM [facility]Hematocrit25.5(L)39 - 50 %01/22/2025 5:54 AM [facility]MCV73(L)80 - 100 fL 01/22/2025 5:54 AM [facility]MCH24.4(L)27 - 34 pg 01/22/2025 5:54 AM [facility]MCHC33.432 - 36 g/dL 01/22/2025 5:54 AM [facility]RDW15.8(H)11.5 - 15 % 01/22/2025 5:54 AM [facility]ITALPlatelet Cpymm717682 - 450 10^9/L15 5:54 AM [facility]MPV7.87 - 12 fL 01/22/2025 5:54 AM [facility]ut[facility] %70.7%01/22/2025 5:54 AM [facility]ymphocytes %14.6%01/22/2025 5:54 AM [facility] %10.7%01/22/2025 5:54 AM [facility]ALEosinophils %3.5%01/22/2025 5:54 AM [facility]Basophils %0.5%01/22/2025 5:54 AM [facility] Neutrophils Absolute (A)2.81.5 - 6.6 10^01/22/2025 5:54 AM [facility]ALLymphocytes Absolute0.6(L)1.0 - 3.5 01/22/2025 5:54 AM [facility]ITALMonocytes Absolute0.40.0 - 0.9 ^01/22/2025 5:54 AM [facility]osinophils Absolute0.10.0 - 0.4 10^9/L 01/22/2025 5:54 AM [facility]Basophils Absolute0.00.0 - 0.2 01/22/2025 5:54 AM [facility]ITALDifferential Type AUTOMATED PNHCNHJJRNSM53/19/2025 5:54 AM [facility] Specimen (Source)Anatomical Location / LateralityCollection Method / Volume Collection TimeReceived TimeBloodVenous blood / UnknownVenipuncture / Unknown 01/22/2025 5:16 AM EST01/22/2025 5:46 AM EST Narrative Authorizing ProviderResult TypeResult StatusTaeler Rony SWITCHBOARD MANAGER-CNPLAB BLOOD ORDERABLESFinal ResultPerforming OrganizationAddressCity/State/ZIP CodePhone Number [facility] [address] [place] [address], [place] * Magnesium (01/22/2025 5:16 AM EST)ComponentValueRef RangeTest MethodAnalysis TimePerformed AtPathologist SignatureMAGNESIUM2.21.8 - 2.6 mg/dL01/22/2025 6:21 AM [facility] (Source)Anatomical Location / LateralityCollection Method / VolumeCollection TimeReceived TimeBloodVenous blood / UnknownVenipuncture / Nqrxetm0201/22/2025 5:16 AM EST01/22/2025 5:47 AM EST Narrative Authorizing ProviderResult TypeResult StatusTaeler Rony SWITCHBOARD MANAGER-CNPLAB BLOOD ORDERABLESFinal ResultPerforming OrganizationAddressCity/State/ZIP CodePhone Number [facility] [address] [place] [address], * (ABNORMAL) Comprehensive metabolic panel (01/22/2025 5:16 AM EST)Component ValueRef RangeTest MethodAnalysis TimePerformed AtPathologist SignatureSODIUM 676265 - 146 mmol/L103/24/2024 6:21 AM [facility]OT[facility]SI[facility] 4.33.5 - 5.0 mmol/L103/24/2024 6:21 AM [facility]CHLORIDE 17060 - 109 mmol/L103/24/2024 6:21 AM [facility]CARBON GCIASVD3416 - 32 mmol/L103/24/2024 6:21 AM [facility]ANION GAP75 - 15 mmol/L103/24/2024 6:21 AM [facility]BLOOD UREA FYBOHHFX917 - 23 mg/dL01/22/2025 6:21 AM [facility] CREATININE0.910.70 - 1.20 mg/dL01/22/2025 6:21 AM [facility]Comment:METHOD TRACEABLE TO IDMS [id number](H)65 - 99 mg/dL 01/22/2025 6:21 AM [facility]CALCIUM8.2(L)8.5 - 10.5 mg/dL 01/22/2025 6:21 AM [facility]OTAL PROTEIN6.36.0 - 8.0 g/dL01/22/2025 6:21 AM [facility]ALBUMIN2.9(L)3.2 - 5.3 g/dL01/22/2025 6:21 AM [facility]ALKALINE [id number] - 130 U/L103/24/2024 6:21 AM [facility]AST30<=41 U/L 01/22/2025 6:21 AM [facility]ALT44(H)<=40 U/L103/24/2024 6:21 AM [facility]ITALBILIRUBIN,TOTAL0.60.3 - 1.2 mg/dL 01/22/2025 6:21 AM [facility]ITALEGFR Non-Race Dependent>90 >=60 ml/min/1.73sq.m103/24/2024 6:21 AM [facility]Comment: eGFR not reported due to non-numeric value for Creatinine. Reported eGFR is based on the CKD-EPI 2020 equation that does not use a race coefficient. Specimen (Source)Anatomical Location / LateralityCollection Method / Volume Collection TimeReceived TimeBloodVenous blood / UnknownVenipuncture / Unknown 01/22/2025 5:16 AM EST01/22/2025 5:47 AM EST Narrative Authorizing ProviderResult TypeResult StatusTaeler Rony MUSAN-CNPLAB BLOOD ORDERABLESFinal ResultPerforming OrganizationAddressCity/State/ZIP CodePhone Number [address] [place] [address], [place] * (ABNORMAL) Occult blood x 1, stool (01/21/2025 10:25 PM EST)ComponentValueRef RangeTest MethodAnalysis TimePerformed AtPathologist SignatureFECAL OCCULT BLOODPositive(A)Obuxmbpg44/18/2025 10:40 PM [facility] Specimen (Source)Anatomical Location / LateralityCollection Method / Volume Collection TimeReceived TimeStoolFeces / Afcyotw7101/21/2025 10:25 PM EST 01/21/2025 10:29 PM EST Narrative Authorizing ProviderResult TypeResult StatusTaeler Rony MUSAN-CNPBODY FLUIDS AND STOOLS ORDERABLESFinal ResultPerforming OrganizationAddressCity/State/ZIP CodePhone Number [address] [place] [address], [place] * (ABNORMAL) Hemoglobin and hematocrit, blood (01/21/2025 4:51 PM EST)Component ValueRef RangeTest MethodAnalysis TimePerformed AtPathologist Signature Hemoglobin7.9(L)13 - 17 g/dL01/21/2025 5:17 PM [facility] Supfnsqquv37.3(L)39 - 50 %01/21/2025 5:17 PM [facility] Specimen (Source)Anatomical Location / LateralityCollection Method / Volume Collection TimeReceived TimeBloodVenous blood / UnknownVenipuncture / Unknown 01/21/2025 4:51 PM EST01/21/2025 5:05 PM EST Narrative Authorizing ProviderResult TypeResult StatusTaeler Rony SWITCHBOARD MANAGER-CNPLAB BLOOD ORDERABLESFinal ResultPerforming OrganizationAddressCity/State/ZIP CodePhone Number [facility] [address] [place] [address], * (ABNORMAL) Comprehensive metabolic panel (01/21/2025 11:17 AM EST)Component ValueRef RangeTest MethodAnalysis TimePerformed AtPathologist SignatureSODIUM 132(L)134 - 146 mmol/L103/23/2024 11:58 AM [facility] POTASSIUM3.83.5 - 5.0 mmol/L103/23/2024 11:58 AM [facility] [id number] - 109 mmol/L103/23/2024 11:58 AM [facility] CARBON GLKAYIE5583 - 32 mmol/L103/23/2024 11:58 AM [facility]ANION PRG018 - 15 mmol/L103/23/2024 11:58 AM [facility]BLO[facility] UREA AYZKPGEI465 - 23 mg/dL01/21/2025 11:58 AM [facility]CREATININE0.880.70 - 1.20 mg/dL01/21/2025 11:58 AM [facility]Comment:METHOD TRACEABLE TO IDMS XRDLRPMMDRZZOLN3167 - 99 mg/dL01/21/2025 11:58 AM [facility]CALCIUM8.3(L)8.5 - 10.5 mg/dL01/21/2025 11:58 AM [facility]OTAL PROTEIN6.4 6.0 - 8.0 g/dL01/21/2025 11:58 AM [facility]ALBUMIN2.9(L) 3.2 - 5.3 g/dL01/21/2025 11:58 AM [facility]ALKALINE UWVFHLDJYPL574(H)39 - 130 U/L103/23/2024 11:58 AM [facility]AST60(H)<=41 U/L103/23/2024 11:58 AM [facility]ALT 61(H)<=40 U/L103/23/2024 11:58 AM [facility]ITALBILIRUBIN,TOTAL 1.5(H)0.3 - 1.2 mg/dL01/21/2025 11:58 AM [facility]ALEGFR Non-Race Dependent>90>=60 ml/min/1.73sq.m103/23/2024 11:58 AM [facility]Comment: eGFR not reported due to non-numeric value for Creatinine. Reported eGFR is based on the CKD-EPI 2020 equation that does not use a race coefficient. Specimen (Source)Anatomical Location / LateralityCollection Method / Volume Collection TimeReceived TimeBloodVenous blood / UnknownVenipuncture / Unknown 01/21/2025 11:17 AM EST01/21/2025 11:33 AM EST Narrative Authorizing ProviderResult TypeResult StatusNapoleon OCONNOR BLOOD ORDERABLES Final ResultPerforming OrganizationAddressCity/State/ZIP CodePhone Number [facility] [address] [place] [address], * (ABNORMAL) Hemoglobin and hematocrit, blood (01/21/2025 11:17 AM EST)Component ValueRef RangeTest MethodAnalysis TimePerformed AtPathologist Signature Hemoglobin8.4(L)13 - 17 g/dL01/21/2025 11:38 AM [facility] Lqehfpdgvy44.2(L)39 - 50 %01/21/2025 11:38 AM [facility] Specimen (Source)Anatomical Location / LateralityCollection Method / Volume Collection TimeReceived TimeBloodVenous blood / UnknownVenipuncture / Unknown 01/21/2025 11:17 AM EST01/21/2025 11:34 AM EST Narrative Authorizing ProviderResult TypeResult StatusNapoleon OCONNOR BLOOD ORDERABLES Final ResultPerforming OrganizationAddressCity/State/ZIP CodePhone Number [facility] [address] [place] [address], [place] documented in this encounter Visit Diagnoses Diagnosis GI bleed- Primary Unspecified, hemorrhage of gastrointestinal tract Acute otitis media, unspecified otitis media type documented in this encounter Admitting Diagnoses Diagnosis GI bleed Unspecified, hemorrhage of gastrointestinal tract documented in this encounter Administered Medications Medication OrderMAR ActionAction DateDoseRateSite iron sucrose (VENOFER) IVPB 200 mg/110 mL in sodium chloride 0.9% (CMPD premix) 200 mg, intravenous, at 440 mL/hr, Administer over 15 Minutes, Daily, First dose (after last modification) on Mon01/21/25 at 0900, For 2 doses, Monitor patient for hypersensitivity reactions for at least 30 minutes after the infusion. AVOID the use of H1 antihistamines, such as diphenhydramine, asthis may worsen hypersensitivity reactions. Have resuscitation equipment and medications available. New Bag01/22/2025 9:03 AM KTI893 mg440 mL/hrNew Bag01/21/2025 5:33 PM EVN440.2 mg440 mL/hr lactated ringers infusion 50 mL/hr, intravenous, Continuous, Starting on Mon01/22/25 at 1130, For 1 day, Pre-op, If fluid restriction is not indicated, infuse at a rate up to 5 mL/kg/hr not to exceed the total replacement volume (2 ml/kg/hr) from the time NPO status was initiated. Iqwbwvvbk84/19/2025 1:11 PM ESTNew Bag01/22/2025 12:16 PM EST50 mL/hr50 mL/hr midazolam (VERSED) injection 2 mg 2 mg, intravenous, As needed, anxiety, Starting on Mon01/22/25 at 1226, Pre-op, May repeat in 10 minutes, if needed, if original midazolam (VERSED) ineffective, Indication: Other, Indication: anxiety Given01/22/2025 12:28 PM EST2 mg morphine injection 2 mg 2 mg, intravenous, Every 4 hours PRN, for breakthrough pain, Starting on Mon01/21/25 at 0513, Look-alike/sound-alike medication - verify indication for use. Given01/22/2025 3:21 PM EST2 hsCyfvs8101/22/2025 10:29 AM EST2 crYrnzk4501/22/2025 6:35 AM EST2 mg pantoprazole (PROTONIX) 80 mg in sodium chloride 0.9 % 100 mL (0.8 mg/mL) infusion 8 mg/hr (10 mL/hr), intravenous, Continuous, Starting on Mon01/21/25 at 0515, Look-alike/sound-alike medication - verify indication for use., Indication: Upper GI bleed New Bag01/22/2025 4:16 AM EST8 mg/hr10 mL/hrNew 01/21/2025 6:29 PM EST8 mg/hr 10 mL/hrNew 01/21/2025 9:04 AM EST8 mg/hr10 mL/hr pantoprazole (PROTONIX) EC tablet 40 mg 40 mg, oral, 2 times daily before meals, First dose on Mon01/22/25 at 1600, Look-alike/sound-alikemedication - verify indication for use. If patient is receiving enteral feeding, consider alternative PPI or continue IV pantoprazole until the delayed-release tablet can be taken orally, Indication:Acute Upper GI Bleed/Positive Stool Occult Blood Given01/22/2025 3:21 PM EST40 mg potassium chloride (K-TAB,KLOR-CON) CR tablet 30-40 mEq 30-40 mEq, oral, As needed, Potassium Supplementation, Starting on Mon01/21/25 at 0513, Progress to oral potassium replacement when patient [...] greater=50 mEq. Do not crush or chew. Given01/21/2025 5:23 PM EST30 mEq potassium chloride (KAYCIEL) 20 mEq/15 mL solution 30-40 mEq 30-40 mEq, oral, As needed, Potassium Supplementation, Starting on Mon01/21/25 at 0513, Progress to oral potassium replacement when patient [...] Minutes, As needed, POTASSIUM REPLACEMENT, Starting on Mon01/21/25 at 0513, IV if unable to use oral/enteral with [...] intravenous, Every 12 hours scheduled, First dose (after last modification) on Mon01/21/25 at 0900 Given01/22/2025 9:03 AM EST3 cWAeajr5601/21/2025 10:18 PM EST3 mL sodium chloride 0.9 % infusion 50 mL/hr, intravenous, Continuous, Starting on Mon01/21/25 at 0515, For 4 hours New Bag01/21/2025 6:02 AM EST50 mL/hr50 mL/hr sodium chloride 0.9 % infusion 100 mL/hr, intravenous, Continuous, Starting on Mon01/21/25 at 1145, For 4 hours Lczsftxsw51/18/2025 11:45 AM ASX125 mL/hr100 mL/hr traZODone (DESYREL) tablet 50 mg 50 mg, oral, Nightly, First dose on Mon01/21/25 at 2200, Look-alike/sound-alike medication - verify indication for use. Given01/21/2025 10:18 PM EST50 mgdocumented in this encounter Active and Recently Administered Medications Times are shown in EST.Medication Order iron sucrose (VENOFER) IVPB 200 mg/110 mL in sodium chloride 0.9% (CMPD premix) (COMPLETED) 200 mg, intravenous, at 440 mL/hr, Administer over 15 Minutes, Daily, First dose (after last modification) on Mon01/21/25 at 0900, For 2 doses, Monitor patient for hypersensitivity reactions for at least 30 minutes after the infusion. AVOID the use of H1 antihistamines, such as diphenhydramine, asthis may worsen hypersensitivity reactions. Have resuscitation equipment and medications available. * 1733 (New Bag - Provider: Ramya Bui RN) * 1748 (Stop Bag - Provider: Ramya Bui RN) * 0903 (New Bag - Provider: Lotus Anthony, LOU) * 0918 (Stop Bag - Provider: Lotus Anthony, LOU) pantoprazole (PROTONIX) EC tablet 40 mg 40 mg, oral, 2 times daily before meals, First dose on Mon01/22/25 at 1600, Look-alike/sound-alikemedication - verify indication for use. If patient is receiving enteral feeding, consider alternative PPI or continue IV pantoprazole until the delayed-release tablet can be taken orally, Indication:Acute Upper GI Bleed/Positive Stool Occult Blood * 1521 (Given - Provider: Lotus Anthony, LOU) sodium chloride 0.9 % flush 3 mL 3 mL, intravenous, Every 12 hours scheduled, First dose (after last modification) on Mon01/21/25 at 0900 * 0900 (Not Given - Provider: Ramya Bui RN - Reason: Order parameters not met) * 2218 (Given - Provider: Carlos Bazan RN) * 0903 (Given - Provider: Lotus Anthony, LOU) * 1129 (MAR Hold - Provider: Automatic Transfer Provider - Reason: Patient not available) * 1402 (MAR Unhold - Provider: Automatic Transfer Provider) traZODone (DESYREL) tablet 50 mg 50 mg, oral, Nightly, First dose on Mon01/21/25 at 2200, Look-alike/sound-alike medication - verify indication for use. * 2218 (Given - Provider: Carlos Bazan RN) * 1129 (MAR Hold - Provider: Automatic Transfer Provider - Reason: Patient not available) * 1402 (MAR Unhold - Provider: Automatic Transfer Provider) Medication Order lactated ringers infusion (CANCELED) 50 mL/hr, intravenous, Continuous, Starting on Mon01/22/25 at 1130, For 1 day, Pre-op, If fluid restriction is not indicated, infuse at a rate up to 5 mL/kg/hr not to exceed the total replacement volume (2 ml/kg/hr) from the time NPO status was initiated. * 1216 (New Bag - Provider: Jane Lopes RN) * 1310 (Paused - Provider: LUX Gusman - Comment: Switch to gravity) * 1311 (Restarted - Provider: LUX Gusman) * 1320 (Anesthesia Volume Adjustment - Provider: LUX Gusman) * 1356 (Stop Bag - Provider: Lotus Anthony RN - Comment: [Order ends at this time. Document the following action when infusion is complete: Stop Bag]) pantoprazole (PROTONIX) 80 mg in sodium chloride 0.9 % 100 mL (0.8 mg/mL) infusion (CANCELED) 8 mg/hr (10 mL/hr), intravenous, Continuous, Starting on Mon01/21/25 at 0515, Look-alike/sound-alike medication - verify indication for use., Indication: Upper GI bleed * 0904 (New Bag - Provider: Ramya Bui RN) * 1829 (New Bag - Provider: Ramya Bui RN) * 0416 (New Bag - Provider: Carlos Bazan RN) * 1129 (MAR Hold - Provider: Automatic Transfer Provider - Reason: Patient not available) * 1402 (Stop Bag - Provider: Lotus Anthony RN - Comment: [Order ends at this time. Document the following action when infusion is complete: Stop Bag]) * 1402 (MAR Unhold - Provider: Lotus Anthony RN) sodium chloride 0.9 % infusion () 50 mL/hr, intravenous, Continuous, Starting on Mon01/21/25 at 0515, For 4 hours * 0602 (New Bag - Provider: Deepa Purvis RN) * 1001 (Stop Bag - Provider: Ramya Bui RN - Comment: [Order ends at this time. Document the following action when infusion is complete: Stop Bag]) sodium chloride 0.9 % infusion () 100 mL/hr, intravenous, Continuous, Starting on Mon01/21/25 at 1145, For 4 hours * 1145 (Restarted - Provider: Ramya Bui RN) * 1544 (Stop Bag - Provider: Ramya Bui RN - Comment: [Order ends at this time. Document the following action when infusion is complete: Stop Bag]) Medication Order// acetaminophen (TYLENOL) tablet 650 mg 650 mg, oral, Every 6 hours PRN, mild pain - pain scale 1-3, temperature greater than 38 C, Starting on Mon01/21/25 at 0513, [Warning: Total Acetaminophen not to exceed more than 4 grams (4000 mg) in 24 hours] * 1129 ([facility] Hold - Provider: Automatic Transfer Provider - Reason: Patient not available) * 1402 ([facility] Unhold - Provider: Automatic Transfer Provider) alum-mag hydroxide-simeth (MAALOX) 200-200-20 mg/5 mL suspension 30 mL 30 mL, oral, 4 times daily after meals and at bedtime as needed, dyspepsia, Starting on Mon01/21/25 at 0513, Look-alike/sound-alike medication - verify indication for use. Shake well., Indications: dyspepsia * 1129 ([facility] Hold - Provider: Automatic Transfer Provider - Reason: Patient not available) * 1402 ([facility] Unhold - Provider: Automatic Transfer Provider) magnesium sulfate IVPB 2000 mg/50 mL in iso-osmotic water (40 mg/mL premix) 2,000 mg, intravenous, at 25 mL/hr, Administer over 120 Minutes, As needed, Magnesium level 1.7-1.9, Starting on Mon01/21/25 at 0513, Recheck magnesium level 4 hours after infusion complete. With each magnesium result continue the replacement orders as needed. * 1129 ([facility] Hold - Provider: Automatic Transfer Provider - Reason: Patient not available) * 1402 ([facility] Unhold - Provider: Automatic Transfer Provider) magnesium sulfate IVPB 4000 mg/100 mL in iso-osmotic water (40 mg/mL premix) 4,000 mg, intravenous, at 25 mL/hr, Administer over 240 Minutes, As needed, Magnesium level 1.6 mg/dL or less, Starting on Mon01/21/25 at 0513, Recheck magnesium level 4 hours after infusion complete. With each magnesium result continue the replacement orders as needed. * 1129 ([facility] Hold - Provider: Automatic Transfer Provider - Reason: Patient not available) * 1402 ([facility] Unhold - Provider: Automatic Transfer Provider) meclizine (ANTIVERT) tablet 25 mg 25 mg, oral, 3 times daily PRN, dizziness, Starting on Mon01/21/25 at 0513, Look-alike/sound-alikemedication - verify indication for use. * 1129 ([facility] Hold - Provider: Automatic Transfer Provider - Reason: Patient not available) * 1402 ([facility] Unhold - Provider: Automatic Transfer Provider) midazolam (VERSED) injection 2 mg (CANCELED) 2 mg, intravenous, As needed, anxiety, Starting on Mon01/22/25 at 1226, Pre-op, May repeat in 10 minutes, if needed, if original midazolam (VERSED) ineffective, Indication: Other, Indication: anxiety * 1228 (Given - Provider: Jane Lopes RN) morphine injection 2 mg 2 mg, intravenous, Every 4 hours PRN, for breakthrough pain, Starting on Mon01/21/25 at 0513, Look-alike/sound-alike medication - verify indication for use. * 0559 (Given - Provider: Deepa Purvis, LOU) * 1023 (Given - Provider: Ramya Bui, LOU) * 1427 (Given - Provider: Afua Hargrove, LOU) * 1830 (Given - Provider: Ramya Bui, LOU) * 2230 (Given - Provider: Carlos Bazan, RN) * 0255 (Given - Provider: Carlos Bazan, RN) * 0635 (Given - Provider: Carlos Bazan RN) * 1029 (Given - Provider: Lotus Anthony RN) * 1129 ([facility] Hold - Provider: Automatic Transfer Provider - Reason: Patient not available) * 1402 ([facility] Unhold - Provider: Automatic Transfer Provider) * 1521 (Given - Provider: Lotus Anthony RN) ondansetron (PF) (ZOFRAN) injection 4 mg 4 mg, intravenous, Every 4 hours PRN, nausea, vomiting, Starting on Mon01/21/25 at 0513, Intravenous administration preferred to be given over 2-5 minutes. * 1129 ([facility] Hold - Provider: Automatic Transfer Provider - Reason: Patient not available) * 1402 ([facility] Unhold - Provider: Automatic Transfer Provider) potassium chloride (K-TAB,KLOR-CON) CR tablet 30-40 mEq(Linked Group 1) 30-40 mEq, oral, As needed, Potassium Supplementation, Starting on Mon01/21/25 at 0513, Progress to oral potassium replacement when patient [...] mEq. Do not crush or chew. * 1723 (Given - Provider: Ramya Bui RN) * 1129 ([facility] Hold - Provider: Automatic Transfer Provider - Reason: Patient not available) * 1402 ([facility] Unhold - Provider: Automatic Transfer Provider) potassium chloride (KAYCIEL) 20 mEq/15 mL solution 30-40 mEq(Linked Group 1) 30-40 mEq, oral, As needed, Potassium Supplementation, Starting on Mon01/21/25 at 0513, Progress to oral potassium replacement when patient [...] per policy and monitor potassium levels * 1723 (See Alternative - Provider: Ramya Bui, LOU) * 1129 ([facility] Hold - Provider: Automatic Transfer Provider - Reason: Patient not available) * 1402 ([facility] Unhold - Provider: Automatic Transfer Provider) potassium chloride IVPB 10 mEq/100 mL in water (0.1 mEq/mL premix)(Linked Group 1) 10 mEq, intravenous, at 100 mL/hr, Administer over 60 Minutes, As needed, POTASSIUM REPLACEMENT, Starting on Mon01/21/25 at 0513, IV if unable to use oral/enteral with [...] over a minimum of 1 hour. * 1723 (See Alternative - Provider: Ramya Bui RN) * 1129 ([facility] Hold - Provider: Automatic Transfer Provider - Reason: Patient not available) * 1402 ([facility] Unhold - Provider: Automatic Transfer Provider) sennosides-docusate sodium (SENOKOT-S) 8.6-50 mg 1 tablet 1 tablet, oral, Every 12 hours PRN, constipation, Starting on Mon01/21/25 at 0513 * 1129 ([facility] Hold - Provider: Automatic Transfer Provider - Reason: Patient not available) * 1402 ([facility] Unhold - Provider: Automatic Transfer Provider) sodium chloride 0.9 % flush 3 mL 3 mL, intravenous, As needed, line care, before and after each intermittent use, Starting on Mon01/21/25 at 0513 * 1129 ([facility] Hold - Provider: Automatic Transfer Provider - Reason: Patient not available) * 1402 ([facility] Unhold - Provider: Automatic Transfer Provider) sodium chloride 0.9 % flush 3 mL 3 mL, intravenous, As needed, line care, before and after each intermittent use, Starting on Mon01/21/25 at 0513 * 1129 ([facility] Hold - Provider: Automatic Transfer Provider - Reason: Patient not available) * 1402 ([facility] Unhold - Provider: Automatic Transfer Provider) Order Group 1: potassium chloride (K-TAB,KLOR-CON) CR tablet 30-40 mEqJump to med 30-40 mEq, oral, As needed, Potassium Supplementation, Starting on Mon01/21/25 at 0513, Progress to oral potassium replacement when patient [...] oral, As needed, Potassium Supplementation, Starting on Mon01/21/25 at 0513, Progress to oral potassium replacement when patient [...] Minutes, As needed, POTASSIUM REPLACEMENT, Starting on Mon01/21/25 at 0513, IV if unable to use oral/enteral with [...] Teams Team MemberRelationshipSpecialtyStart DateEnd Date Tina Willis, ADRI[employer]YSTAL GROWING TECHNICIAN [address] [place] [address] PCP - GeneralFamily Gwlaypct27/13/24documented as of this encounter
--- OUTSIDE RECORDS SUMMARY | 2025-01-22 12:30 | XMS_ITS | Encounter Summary ---
Author Organization [facility] [employer] [facility] tem Address [id number] [address] [place] [address] Care Team Providers Care Parts Salvager Name Role Phone Tina Willis APRN-OBJECTS CONSERVATOR Primary Care Provider Reason for Visit * Auth/CertSpecialtyDiagnoses / ProceduresReferred By ContactReferred To Contact Diagnoses GI Bleed [facility] [address] [place] [phone] Referral IDStatusReasonStart DateExpiration DateVisits RequestedVisits [id number] Encounter Details DateTypeDepartmentCare Team (Latest Contact Info)Wjtbqhdqnfu35/19/2025 12:30 PM EST - 01/22/2025 1:00 PM ESTSurgery [facility] [address] [place] [id number] Didi Garcia MD [address] [place] [address] ESOPHAGOGASTRODUODENOSCOPY DIAGNOSTIC, BIOPSY [76463 (CPT??)] Surgery Details Date/TimeStatusLocationORServicePatient ClassCase ClassCase TypeTrauma Case? 01/22/2025 12:30 [facility]ERY[facility] 01GastroenterologyInpatientElective Panel 1 ProcedureLRBAnesOp RegionWound ClassCommentsESOPHAGOGASTRODUODENOSCOPY DIAGNOSTIC, BIOPSYN/AMonitored Anesthesia CareClean Contaminated SurgeonSurgeon RoleServicePanelEl Didi Enamorado, DEANNErimaryGastroenterology1 documented in this encounter Social History Tobacco UseTypesPacks/DayYears UsedDateSmoking Tobacco: FormerCigarettes [...] has the electric, gas, oil, or water [employer] threatened to shut off services in your home?No01/21/2025Housing InstabilityAnswerDate RecordedAre you worried or concerned that in the next two months you may not have stable housing that you own, rent or stay in as a part of a household?No01/21/2025Hunger ScreeningAnswerDate RecordedWithin the past 12 months we worried whether our food would run out before we got money to buy more.Patient Hsjiwlkk89/18/2025 Within the past 12 months the food we bought just didn't last and we didn't have money to get more.Patient Xpulzwqe69/18/2025Sex and Gender InformationValueDate RecordedSex Assigned at BirthNot on fileLegal PduQvwu66/13/2024 1:45 PM EST Gender IdentityNot on fileSexual OrientationNot on filedocumented as of this encounter Last Filed Vital Signs Vital SignReadingTime TakenCommentsBlood Wyrdcwft334/8901/22/2025 11:40 AM EST Cakhf707301/22/2025 11:40 AM JENEkgyaqiuyfu67.6 ??C (97.9 ??F)01/22/2025 11:40 AM ESTRespiratory Dbye735403/24/2024 11:40 AM ESTOxygen Fivywocyue45%01/22/2025 11:40 AM ESTInhaled Oxygen Concentration--Ryquoa553.4 kg (221 lb 5.5 oz)01/22/2025 11:40 AM DTUIahdqn428.5 cm (6' 3 )01/22/2025 11:40 AM ESTBody Mass Index27.67 01/22/2025 11:40 AM ESTdocumented in this encounter Functional Status documented as of this encounter Discharge Summaries * Napoleon Klein MD - 01/22/2025 7:41 PM EST Images from the original note were not included. [facility] [address] [facility] [phone] Hospital Medicine Discharge Summary Patient: Stanford Mccray Date of : 1980 Room: Encounter date: 01/22/25 Hospital Day: 2 DATE OF ADMISSION: 01/21/2025 DATE OF DISCHARGE:01/22/2025 DISCHARGE DIAGNOSES Principal Problem: GI bleed [facility] PCP: TINA WILLIS APRN-OBJECTS CONSERVATOR PROCEDURES EGD HOSPITAL COURSE SUMMARY Stanford Mccray is a 44 y.o. male who presents as a transfer from [facility]. Patient reports he had dizziness for the last couple days has not been able to eat had 2 black tarry stools. Patient reports he just has not felt well. Patient reports he follows with GI has been a couple years in [facility] patient is noted to be ill-appearing with [...] discharge. Patient will follow up outpatient with [facility] GI who he has an established relationship with. Patient asking for work release note. Informed patient he would be released to [...] air) Intake/Output Summary (Last 24 hours) at 01/22/20251940 Last data filed at 01/22/2025 1654 Gross [...] This image is visible to you in Dsg.nrhart.* CT brain without contrast Result Date: 01/19/2025 [...] PCP in 7-10 days Follow up with [facility] GI outpatient Labs/Imaging/Pathology: Pending Labs Order Current [...] within 12 hours or as directed by semnir-qytipmez-mavvvpz (pork) 3,000-9,500- 15,000 unit capsule,delayed release(DR/EC) Commonly [...] Your Medications These medications were sent to [id number] - [place], [place] - [address] [facility] [address] [place] [address] amoxicillin-pot clavulanate 875-125 mg per tablet meclizine 25 mg tablet pantoprazole 40 mg EC tablet >30 minutes were spent on discharging this patient. NEVILLE Littlejohn 01/22/2025 7:41 PM [facility] Internal Medicine 7AM-7PM & 7PM-7AM: EpicChat or [...] Everywhere. * GI bleed ??? Discharge instructions (Cuban) documented in this encounter Medications at Time [...] as directed by MD 30 patch 01/17/2024 anuidi-wheyvira-mdymapb (CREON) 3,000-9,500- 15,000 unit capsule,delayed release(DR/EC) Take [...] as of this encounter Progress Notes * Didi Enamorado MD - 01/22/2025 12:07 PM EST Images from the original note were not included. [facility] Progress Note IDENTIFYING DATA PATIENT: Stanford [...] as directed by 30 patch 0 Taking mmcclh-qnpnrzpa-mghgdoc (CREON) 3,000-9,500- 15,000 unit capsule,delayed release(DR/EC) Take [...] note is dictated with the use of Kliqed, a computer voice recognition software. Quite often unanticipated grammatical, syntax, homophones, and other interpretive errors are inadvertently transcribed by the computer software. Please disregard these errors and please excuse any errors that haveescaped final proofreading. Didi Enamorado MD, MPH Gastroenterology & Hepatology [facility], [address], [address] [place] [address] PH: [phone] documented in this encounter H&P Notes * Didi Enamorado MD - 01/22/2025 12:10 PM EST HISTORY AND PHYSICAL INTERVAL NOTE: Stanford Mccray 1980 [id number] H&P reviewed. The patient was examined and there are no changes to the H&P. DIDI ENAMORADO MD Source Note - Didi Enamorado MD - 01/22/2025 12:07 PM EST Images from the original note were not included. [facility] Progress Note IDENTIFYING DATA PATIENT: Stanford [...] as directed by 30 patch 0 Taking moqfns-vneymxzu-bnqnopw (CREON) 3,000-9,500- 15,000 unit capsule,delayed release(DR/EC) Take [...] note is dictated with the use of Kliqed, a computer voice recognition software. Quite often unanticipated grammatical, syntax, homophones, and other interpretive errors are inadvertently transcribed by the computer software. Please disregard these errors and please excuse any errors that haveescaped final proofreading. Didi Enamorado MD, MPH Gastroenterology & Hepatology [facility], [facility] [address], [address] [place] [address] PH: [phone] * Napoleon Klein MD - 01/21/2025 1:00 PM EST Images from the original note were not included. [facility] [address] [facility] [phone] Hospital Medicine History & Physical Patient: Stanford Mccray Date of : 1980 Room: PCP: NEVILLE FRENCH Admission date: 01/21/2025 4:49 AM Encounter date: 01/22/25 Hospital Day: 2 SUBJECTIVE Stanford Mccray is a 44 y.o. male who presents as a transfer from [facility]. Patient reports he had dizziness for the last couple days has not been able to eat had 2 black tarry stools. Patient reports he just has not felt well. Patient reports he follows with GI has been a couple years in [facility] patient is noted to be ill-appearing with [...] directed by 01/17/24 Yes Johnna Mcpherson APRN-WAI wgygrl-orenhtuh-hothynv (CREON) 3,000-9,500- 15,000 unit capsule,delayed release(DR/EC) Take [...] start IV Venofer -does look like back November 14th hemoglobin was 9.7 downward trend since>8.8>8.4>7.9 -on [...] Littlejohn 01/22/2025 7:58 PM [facility] Internal Medicine 7AM-7PM & 7PM-7AM: EpicChat or [...] documented in this encounter Consult Notes * Didi Enamorado MD - 01/21/2025 9:09 AM ESTAssociated Order(s): IP CONSULT TO GASTROENTEROLOGY Images from the original note were not included. [facility] Initial Consultation Note IDENTIFYING DATA PATIENT: Stanford Mccray ADMIT DATE: 01/21/2025 TIME OF EVALUATION: 01/21/2025 9:09 AM Reason for Consult: Acute symptomatic anemia HISTORY OF PRESENT ILLNESS Stanford Mccray is a 44 y.o. male who has a past medical history of Hypertension. He GASTROENTEROLOGY/HEPATOLOGY HISTORY 44 years old male patient transferred from [facility] regarding acute symptomatic anemia. Patient has a had episodes of pancreatitis since 2019. He is to follow up with Gastroenterology at [facility]. He underwent EGD colonoscopy and EUS in [...] as directed by 30 patch 0 Taking vbkvjv-grpjvjew-gqjqipn (CREON) 3,000-9,500- 15,000 unit capsule,delayed release(DR/EC) Take [...] mL IVPB W/ADAPTER, 1,000 mg, intravenous, Q24H, NEVILLE Bhandari iron sucrose (VENOFER) IVPB 200 mg/110 mL in sodium chloride 0.9% (CMPD premix), 200 mg, intravenous, Daily, NEVILLE Bhandari magnesium sulfate IVPB 2000 mg/50 mL in iso-osmotic water (40 mg/mL premix), 2,000 mg, intravenous,PRN, NEVILLE Bhandari magnesium sulfate IVPB 4000 mg/100 mL in iso-osmotic water (40 mg/mL premix), 4,000 mg, intravenous, PRN, NEVILLE Bhandari meclizine (ANTIVERT) tablet 25 mg, 25 mg, oral, TID PRN, NEVILLE Bhandari morphine injection 2 mg, 2 mg, intravenous, Q4H PRN, NEVILLE Bhandari, 2 mg at 01/21/25 0559 ondansetron (PF) (ZOFRAN) injection 4 mg, 4 mg, intravenous, Q4H PRN, Gabe Uribe, MED PEDS-OBJECTS CONSERVATOR pantoprazole (PROTONIX) 80 mg in sodium chloride 0.9 % 100 mL (0.8 mg/mL) infusion, 8 mg/hr, intravenous, Continuous, Gabe Uribe MED PEDS-OBJECTS CONSERVATOR, Last Rate: 10 mL/hr at 01/21/25903, 8 mg/hr at 01/21/25903 potassium chloride (K-TAB,KLOR-CON) CR tablet 30-40 mEq, 30-40 mEq, oral, PRN OR potassium chloride (KAYCIEL) 20 mEq/15 mL solution 30-40 mEq, 30-40 mEq, oral, PRN OR potassium chloride IVPB 10 mEq/100 mL in water (0.1 mEq/mL premix), 10 mEq, intravenous, PRN, Gabe Uribe MED PEDS-OBJECTS CONSERVATOR sennosides-docusate sodium (SENOKOT-S) 8.6-50 mg 1 tablet, 1 tablet, oral, Q12H PRN, Gabe Uribe,MED PEDS-OBJECTS CONSERVATOR sodium chloride 0.9 % flush 3 mL, 3 mL, intravenous, PRN, Gabe Uribe, MED PEDS-OBJECTS CONSERVATOR sodium chloride 0.9 % flush 3 mL, 3 mL, intravenous, PRN, Gabe Uribe, MED PEDS-OBJECTS CONSERVATOR sodium chloride 0.9 % flush 3 mL, 3 mL, intravenous, Q12H ZACK, Gabe Uribe, MED PEDS-OBJECTS CONSERVATOR sodium chloride 0.9 % infusion, 50 mL/hr, intravenous, Continuous, Gabe Uribe MED PEDS-OBJECTS CONSERVATOR, Last Rate: 50 mL/hr at 01/21/25601, 50 mL/hr at 01/21/25601 PRNs: acetaminophen, 650 mg, Q6H PRN alum-mag [...] 01/20/2025 VITAMIN B12: No results found for: [id number] FOLATE: No results found for: FOLATE IRON: Lab Results Component Value Date IRON 12 (L) 01/19/2025 TIBC 388 01/19/2025 FERRITIN 83 01/19/2025 No results found for: ANASCREEN MICRO Microbiology Results Procedure Component Value Units Date/Time Urine Culture Urine, Clean Catch Midstream [[id number]] Collected: 01/20/25 0918 Specimen: Urine, Clean Catch Midstream Updated: 01/21/25 0818 CULTURE RESULTS <10,000 ORGANISMS/mL NORMAL URO GENITAL TYSHAWN SARS/FLU A+B/RSV by NAAT/Molecular (M4RT Collection Tube) [[id number]] (Normal) Collected: 01/19/25 1317 Specimen: Swab from [...] operators who are performing tests using either Digital Karma or DotAlign systems and islimited to laboratories that meet [...] with specimenrepeat. Fact Sheet for Healthcare Providers: https://www.fda.gov/media/325676/download Fact Sheet for Patients: https://www.fda.gov/media/690922/download IMAGING: CT brain without contrast Result Date: [...] he needs to follow up with his manufacturer's service representative at [facility] regarding chronic pancreatitis and pseudocyst from the hospital. If you have any questions or need any further information, please feel free to contact the GI Consult Service. Thank you for allowing us to participate in the care of Stanford Mccray. This note is dictated with the use of Kliqed, a computer voice recognition software. Quite often unanticipated grammatical, syntax, homophones, and other interpretive errors are inadvertently transcribed by the computer software. Please disregard these errors and please excuse any errors that haveescaped final proofreading. Didi Enamorado MD, MPH Gastroenterology & Hepatology [facility], [address], [address] [place] [address] PH: [phone] documented in this encounter Miscellaneous Notes * Brief Op Note - Didi Enamorado MD - 01/22/2025 1:11 PM EST [...] Description: INTERVENTIONS: 1. Encourage patient or legal senior human resources representative to report early pain and ask [...] per policy 9. Teach patient or legal senior human resources representative interventions for comforting Outcome: Progressing Note: [...] at the bedside 7. Instruct patient/ patient senior human resources representative about use of safety devices 8. Include patient/ patient senior human resources representative in decisions related to safety Outcome: Progressing Note: Evaluation of progress towards goal: Safety maintained; free from falls/ injuries this admission. Continue current fall prevention interventions. Problem: Knowledge Deficit Goal: Patient/patient senior human resources representative demonstrates understanding of disease process, treatment [...] hygiene technique. 7. Identify and instruct patient/patient senior human resources representative in use of appropriate isolation precautionsfor identified infection/symptoms. 8. Provide and discuss with patient/patient senior human resources representative on educational MDRO sheet. 9. Encourage and monitor nutritional status daily and consult catalog librarian if indicated. 10. Implement neutropenic guidelines as needed. Outcome: Completed Note: Evaluation of progress towards goal: no s/s infection noted * Plan of Care - Carlos Bazan RN - 01/21/2025 11:24 PM EST Problem: Pain Goal: Patient goal is pain score less than 4, able to rest, and participant in treatment plan as appropriate Description: INTERVENTIONS: 1. Encourage patient or legal senior human resources representative to report early pain and ask [...] per policy 9. Teach patient or legal senior human resources representative interventions for comforting Outcome: Progressing Note: [...] at the bedside 7. Instruct patient/ patient senior human resources representative about use of safety devices 8. Include patient/ patient senior human resources representative in decisions related to safety Outcome: Progressing Note: Evaluation of progress towards goal: Patient's environment assessed for potential hazards to patient's safety. Patient remained injury free throughout duration of shift. Problem: Knowledge Deficit Goal: Patient/patient senior human resources representative demonstrates understanding of disease process, treatment [...] DC Planning Complete Discharge Milestones Yes 3-Midnight Head Still Operator met with patient at bedside and introduced self and explained role. Patient admittedfor GI bleed. Patient's PCP Tina Willis OBJECTS CONSERVATOR was confirmed. Patient denies need for assistance [...] Q12. Discharge disposition: Home with Self Care. Head Still Operator will continue to follow for ongoing discharge transition needs. - Latrice Rangel RN 01/21/25 10:10 AM * Plan of Care - Ramya Bui RN - 01/21/2025 9:00 AM EST Problem: Pain Goal: Patient goal is pain score less than 4, able to rest, and participant in treatment plan as appropriate Description: INTERVENTIONS: 1. Encourage patient or legal senior human resources representative to report early pain and ask [...] per policy 9. Teach patient or legal senior human resources representative interventions for comforting Outcome: Progressing Note: [...] at the bedside 7. Instruct patient/ patient senior human resources representative about use of safety devices 8. Include patient/ patient senior human resources representative in decisions related to safety Outcome: [...] hygiene technique. 7. Identify and instruct patient/patient senior human resources representative in use of appropriate isolation precautionsfor identified infection/symptoms. 8. Provide and discuss with patient/patient senior human resources representative on educational MDRO sheet. 9. Encourage and monitor nutritional status daily and consult catalog librarian if indicated. 10. Implement neutropenic guidelines as needed. Outcome: Progressing Note: Evaluation of progress towards goal: monitor labs, vs Problem: Knowledge Deficit Goal: Patient/patient senior human resources representative demonstrates understanding of disease process, treatment [...] Description: INTERVENTIONS: 1. Encourage patient or legal senior human resources representative to report early pain and ask [...] per policy 9. Teach patient or legal senior human resources representative interventions for comforting Outcome: Progressing Note: [...] at the bedside 7. Instruct patient/ patient senior human resources representative about use of safety devices 8. Include patient/ patient senior human resources representative in decisions related to safety Outcome: [...] hygiene technique. 7. Identify and instruct patient/patient senior human resources representative in use of appropriate isolation precautionsfor identified infection/symptoms. 8. Provide and discuss with patient/patient senior human resources representative on educational MDRO sheet. 9. Encourage and monitor nutritional status daily and consult catalog librarian if indicated. 10. Implement neutropenic guidelines as needed. Outcome: Progressing Note: Evaluation of progress towards goal: meds as ordered. Problem: Knowledge Deficit Goal: Patient/patient senior human resources representative demonstrates understanding of disease process, treatment plan,medications, and discharge instructions Description: INTERVENTIONS 1. Complete learning assessment and assess knowledge base 2. Provide teaching at level of understanding 3. Provide teaching via preferred learning method(s) Outcome: Progressing Note: Evaluation of progress towards goal: pt updated on plan of care. Problem: Knowledge Deficit Goal: Patient/patient senior human resources representative demonstrates understanding of disease process, treatment [...] Plan of Treatment NameTypePriorityAssociated DiagnosesDate/TimeSurgical PathologyPathology and FdpybhmqUfdumiw41/19/2025 1:18 PM ESTNameTypePriorityAssociated DiagnosesOrder ScheduleSurgical PathologyPathology and CytologyRoutineRelease Upon Ordering for 1 Occurrences starting 01/22/2025, 1 completeddocumented as of this encounter Goals GoalPatient Goal TypeAssociated ProblemsRecent ProgressPatient-Stated?Author Home Latrice Prakash RN Note: Evaluation of progress towards goal: Patient plans to discharge Home with Self Care. documented as of this encounter Procedures Procedure NamePriorityDate/TimeAssociated DiagnosisCommentsHEMOGLOBIN AND HEMATOCRIT, HEAREMfoiijj04/19/2025 4:55 PM EST PROVATION XOBWegatlo05/19/2025 1:26 PM EST [place] ESOPHAGOGASTRODUODENOSCOPY TRANSORAL PETZHNFGFY18/19/2025 1:11 PM EST GI Bleed EGD103/24/2024 12:56 PM EST PROVATION SAUMzwstkk82/19/2025 12:10 PM EST PROVATION HOBOtnyyhe03/19/2025 11:24 AM EST CBC WITH AUTO QPMPAFFYASBQGwhbrgk94/19/2025 5:16 AM EST FBCPOVYCTUwvoaey36/19/2025 5:16 AM EST COMPREHENSIVE METABOLIC DITSQAzcahhq64/19/2025 5:16 AM EST OCCULT BLOOD X 1, SXMEANrolxmq00/18/2025 10:25 PM EST HEMOGLOBIN AND HEMATOCRIT, SNHDMZprpppj13/18/2025 4:51 PM EST HEMOGLOBIN AND HEMATOCRIT, NYKTJNfmckgk36/18/2025 11:17 AM EST COMPREHENSIVE METABOLIC PANELAdd-On01/21/2025 11:17 AM EST documented in this encounter Results * (ABNORMAL) Hemoglobin and hematocrit, blood (01/22/2025 4:55 PM EST)Component ValueRef RangeTest MethodAnalysis TimePerformed AtPathologist Signature Hemoglobin8.4(L)13 - 17 g/dL01/22/2025 5:04 PM [facility] Rdwkbwgsac41.2(L)39 - 50 %01/22/2025 5:04 PM [facility] Specimen (Source)Anatomical Location / LateralityCollection Method / Volume Collection TimeReceived TimeBloodVenous blood / UnknownVenipuncture / Unknown 01/22/2025 4:55 PM EST01/22/2025 5:00 PM EST Narrative Authorizing ProviderResult TypeResult StatusTaeler Rony MED PEDS-CNPLAB BLOOD ORDERABLESFinal ResultPerforming OrganizationAddressCity/State/ZIP CodePhone Number [facility] [address] [place] [address], * EGD Report (01/22/2025 1:26 PM EST)Specimen [...] PM CARDIOVASCULAR - 01/22/2025 1:36 PM EST [facility] Patient Name: Stanford Mccray ?? Procedure Date No Time: 01/22/2025 ?? CSN: [id number] Date of : 1980 Admit Type: Outpatient Age: 44 Gender: Male Attending MD: Didi Prince , , Procedure: ? 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 Didi Prince Referring MD: ?Johnna Garcias Moderate Sedation: [...] Procedure Code(s): ? --- Professional --- ? 24790, Esophagogastroduodenoscopy, flexible, ? transoral; with biopsy, single or multiple Diagnosis Code(s): ? --- Professional --- ? K22.89, Other specified disease of esophagus ? K31.89, Other diseases of stomach and duodenum ? 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 All rights reserved. The codes documented in this report are preliminary and upon kiln puller review may be revised to meet current compliance requirements. 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 All rights reserved. The codes documented in this report are preliminary and upon kiln puller reviewmay be revised to meet current compliance requirements. MD Didi Tatum, 01/22/2025 1:35:33 PM Number of Addenda: 0 Note Initiated On: 01/22/2025 12:56 PM Authorizing ProviderResult TypeResult StatusDidi Enamorado MDGI PROCEDURE ORDERABLESFinal ResultPerforming OrganizationAddressCity/State/ZIP CodePhone [...] to you in MyChart.* Authorizing ProviderResult TypeResult StatusDidi Enamorado MDIMG OR IMG ORDERABLESFinal Result * EGD Report (01/22/2025 11:24 AM EST)Specimen (Source)Anatomical Location / LateralityCollection Method / VolumeCollection TimeReceived Time Narrative SYSTEMGENERATED, DOCUMENTATION - 01/22/2025 11:24 AM EST This order has been auto-finalized for image and report archival in PACs. *For full report details, please reach out to your physician. ??This image is visible to you in MyChart.* Authorizing ProviderResult TypeResult StatusDidi Enamorado MDIMG OR IMG ORDERABLESFinal Result * (ABNORMAL) CBC auto differential (01/22/2025 5:16 AM EST)ComponentValueRef RangeTest MethodAnalysis TimePerformed AtPathologist SignatureWBC4.04 - 11 10^01/22/2025 5:54 AM [facility]ERRBC Count3.48(L)4.1 - 5.7 10^12/01/22/2025 5:54 AM [facility]ENTERHemoglobin8.5(L)13 - 17 g/dL01/22/2025 5:54 AM [facility]ENTERHematocrit25.5(L)39 - 50 %01/22/2025 5:54 AM [facility]ENTERMCV73(L)80 - 100 fL 01/22/2025 5:54 AM [facility]ENTERMCH24.4(L)27 - 34 pg 01/22/2025 5:54 AM [facility]ENTERMCHC33.432 - 36 g/dL 01/22/2025 5:54 AM [facility] FCJIFSPZRLJ58.8(H)11.5 - 15 % 01/22/2025 5:54 AM [facility] CENTERPlatelet [id number] - 450 10^01/22/2025 5:54 AM [facility] HOSPITALMPV7.87 - 12 fL 01/22/2025 5:54 AM [facility] HOSPITALNeutrophils %70.7%01/22/2025 5:54 AM [facility] HOSPITALLymphocytes %14.6%01/22/2025 5:54 AM [facility] HOSPITALMonocytes %10.7%01/22/2025 5:54 AM [facility] HOSPITALEosinophils %3.5%01/22/2025 5:54 AM [facility] HOSPITALBasophils %0.5%01/22/2025 5:54 AM [facility] HOSPITAL Neutrophils Absolute (A)2.81.5 - 6.6 10^9L103/24/2024 5:54 AM [facility] CENTERLymphocytes Absolute0.6(L)1.0 - 3.5 10^01/22/2025 5:54 AM [facility]ENTERMonocytes Absolute0.40.0 - 0.9 10^9/L103/24/2024 5:54 AM [facility] HOSPITALEosinophils Absolute0.10.0 - 0.4 10^9/L 01/22/2025 5:54 AM [facility]ENTERBasophils Absolute0.00.0 - 0.2 10^9/L103/24/2024 5:54 AM [facility] CENTERDifferential Type AUTOMATED EHLNKDYVCEPX32/19/2025 5:54 AM [facility] Specimen (Source)Anatomical Location / LateralityCollection Method / Volume Collection TimeReceived TimeBloodVenous blood / UnknownVenipuncture / Unknown 01/22/2025 5:16 AM EST01/22/2025 5:46 AM EST Narrative Authorizing ProviderResult TypeResult StatusTaeler Rony MED PEDS-CNPLAB BLOOD ORDERABLESFinal ResultPerforming OrganizationAddressCity/State/ZIP CodePhone Number [place] [phone] [place] [address], [place] * Magnesium (01/22/2025 5:16 AM EST)ComponentValueRef RangeTest MethodAnalysis TimePerformed AtPathologist SignatureMAGNESIUM2.21.8 - 2.6 mg/dL01/22/2025 6:21 AM [facility])Anatomical Location / LateralityCollection Method / VolumeCollection TimeReceived TimeBloodVenous blood / UnknownVenipuncture / Ixvlgoa1301/22/2025 5:16 AM EST01/22/2025 5:47 AM EST Narrative Authorizing ProviderResult TypeResult StatusTaeler Rony MUSAN-CNPLAB BLOOD ORDERABLESFinal ResultPerforming OrganizationAddressCity/State/ZIP CodePhone Number [place] [phone] [place] [address], [place] * (ABNORMAL) Comprehensive metabolic panel (01/22/2025 5:16 AM EST)Component ValueRef RangeTest MethodAnalysis TimePerformed AtPathologist SignatureSODIUM 020769 - 146 mmol/L103/24/2024 6:21 AM [facility] CENTERPOTASSIUM 4.33.5 - 5.0 mmol/L103/24/2024 6:21 AM [facility] CENTERCHLORIDE [address] - 109 mmol/L103/24/2024 6:21 AM [facility] CENTERCARBON VBOHRBM0857 - 32 mmol/L103/24/2024 6:21 AM [facility] CENTERANION GAP75 - 15 mmol/L103/24/2024 6:21 AM [facility] CENTERBLOOD UREA ACFWQREZ444 - 23 mg/dL01/22/2025 6:21 AM [facility] CREATININE0.910.70 - 1.20 mg/dL01/22/2025 6:21 AM [facility] CENTERComment:METHOD TRACEABLE TO IDMS XEBWLDOIMNZXDEH318(H)65 - 99 mg/dL 01/22/2025 6:21 AM [facility] CENTERCALCIUM8.2(L)8.5 - 10.5 mg/dL 01/22/2025 6:21 AM [facility] CENTERTOTAL PROTEIN6.36.0 - 8.0 g/dL01/22/2025 6:21 AM [facility] CENTERALBUMIN2.9(L)3.2 - 5.3 g/dL01/22/2025 6:21 AM [facility] CENTERALKALINE [id number] - 130 U/L103/24/2024 6:21 AM [facility]ENTERAST30<=41 U/L 01/22/2025 6:21 AM [facility]ENTERALT44(H)<=40 U/L103/24/2024 6:21 AM [facility] CENTERBILIRUBIN,TOTAL0.60.3 - 1.2 mg/dL 01/22/2025 6:21 AM [facility] CENTEREGFR Non-Race Dependent>90 >=60 ml/min/1.73sq.m103/24/2024 6:21 AM [facility] CENTERComment: eGFR not reported due to non-numeric value for Creatinine. Reported eGFR is based on the CKD-EPI 2020 equation that does not use a race coefficient. Specimen (Source)Anatomical Location / LateralityCollection Method / Volume Collection TimeReceived TimeBloodVenous blood / UnknownVenipuncture / Unknown 01/22/2025 5:16 AM EST01/22/2025 5:47 AM EST Narrative Authorizing ProviderResult TypeResult StatusTaeler Rony MED PEDS-CNPLAB BLOOD ORDERABLESFinal ResultPerforming OrganizationAddressty/State/ZIP CodePhone Number [address] [place] [address], [place] * (ABNORMAL) Occult blood x 1, stool (01/21/2025 10:25 PM EST)ComponentValueRef RangeTest MethodAnalysis TimePerformed AtPathologist SignatureFECAL OCCULT BLOODPositive(A)Yswmqowx50/18/2025 10:40 PM [facility] Specimen (Source)Anatomical Location / LateralityCollection Method / Volume Collection TimeReceived TimeStoolFeces / Cdpgheu0701/21/2025 10:25 PM EST 01/21/2025 10:29 PM EST Narrative Authorizing ProviderResult TypeResult StatusTaeler Rony MED PEDS-CNPBODY FLUIDS AND STOOLS ORDERABLESFinal ResultPerforming OrganizationAddressCity/State/ZIP CodePhone Number [address] [place] [address], [place] * (ABNORMAL) Hemoglobin and hematocrit, blood (01/21/2025 4:51 PM EST)Component ValueRef RangeTest MethodAnalysis TimePerformed AtPathologist Signature Hemoglobin7.9(L)13 - 17 g/dL01/21/2025 5:17 PM [facility] Nrcqrwdugj19.3(L)39 - 50 %01/21/2025 5:17 PM [facility] Specimen (Source)Anatomical Location / LateralityCollection Method / Volume Collection TimeReceived TimeBloodVenous blood / UnknownVenipuncture / Unknown 01/21/2025 4:51 PM EST01/21/2025 5:05 PM EST Narrative Authorizing ProviderResult TypeResult StatusTaeler Rony MED PEDS-CNPLAB BLOOD ORDERABLESFinal ResultPerforming OrganizationAddressty/State/ZIP CodePhone Number [address] [place] [address], [place] * (ABNORMAL) Comprehensive metabolic panel (01/21/2025 11:17 AM EST)Component ValueRef RangeTest MethodAnalysis TimePerformed AtPathologist SignatureSODIUM 132(L)134 - 146 mmol/L103/23/2024 11:58 AM [facility] POTASSIUM3.83.5 - 5.0 mmol/L103/23/2024 11:58 AM [facility] [id number] - 109 mmol/L103/23/2024 11:58 AM [facility] [place]BON ISZVXLP1699 - 32 mmol/L103/23/2024 11:58 AM [facility]ENTERANION WGH626 - 15 mmol/L103/23/2024 11:58 AM [facility] CENTERBLOOD UREA DXSLPENV821 - 23 mg/dL01/21/2025 11:58 AM [facility] CENTERCREATININE0.880.70 - 1.20 mg/dL01/21/2025 11:58 AM [facility] CENTERComment:METHOD TRACEABLE TO IDTN UAZFHHDJIQUCYMA0892 - 99 mg/dL01/21/2025 11:58 AM [facility] CENTERCALCIUM8.3(L)8.5 - 10.5 mg/dL01/21/2025 11:58 AM [facility] CENTERTOTAL PROTEIN6.4 6.0 - 8.0 g/dL01/21/2025 11:58 AM [facility] CENTERALBUMIN2.9(L) 3.2 - 5.3 g/dL01/21/2025 11:58 AM [facility] CENTERALKALINE VSFYDMNNMTK157(H)39 - 130 U/L103/23/2024 11:58 AM [facility]ENTERAST60(H)<=41 U/L103/23/2024 11:58 AM [facility]ENTERALT 61(H)<=40 U/L103/23/2024 11:58 AM [facility] CENTERBILIRUBIN,TOTAL 1.5(H)0.3 - 1.2 mg/dL01/21/2025 11:58 AM [facility] CENTEREGFR Non-Race Dependent>90>=60 ml/min/1.73sq.m103/23/2024 11:58 AM [facility] CENTERComment: eGFR not reported due to non-numeric value for Creatinine. Reported eGFR is based on the CKD-EPI 2020 equation that does not use a race coefficient. Specimen (Source)Anatomical Location / LateralityCollection Method / Volume Collection TimeReceived TimeBloodVenous blood / UnknownVenipuncture / Unknown 01/21/2025 11:17 AM EST01/21/2025 11:33 AM EST Narrative Authorizing ProviderResult TypeResult StatusNapoleon Klein MDLAB BLOOD ORDERABLES Final ResultPerforming OrganizationAddressCity/State/ZIP CodePhone Number [facility] [address] [place] [address], [place] * (ABNORMAL) Hemoglobin and hematocrit, blood (01/21/2025 11:17 AM EST)Component ValueRef RangeTest MethodAnalysis TimePerformed AtPathologist Signature Hemoglobin8.4(L)13 - 17 g/dL01/21/2025 11:38 AM [facility] Cfaiprdygw52.2(L)39 - 50 %01/21/2025 11:38 AM [facility] Specimen (Source)Anatomical Location / LateralityCollection Method / Volume Collection TimeReceived TimeBloodVenous blood / UnknownVenipuncture / Unknown 01/21/2025 11:17 AM EST01/21/2025 11:34 AM EST Narrative Authorizing ProviderResult TypeResult StatusNapoleon OCONNOR BLOOD ORDERABLES Final ResultPerforming OrganizationAddressCity/State/ZIP CodePhone Number [facility] [address] [place] [address], [place] documented in this encounter Visit Diagnoses Not on filedocumented in this encounter Admitting Diagnoses Diagnosis GI bleed Unspecified, hemorrhage of gastrointestinal tract documented in this encounter Administered Medications Medication OrderMAR ActionAction DateDoseRateSite morphine injection 2 mg 2 mg, intravenous, Every 4 hours PRN, for breakthrough pain, Starting on Mon01/21/25 at 0513, Look-alike/sound-alike medication - verify indication for use. Given01/22/2025 3:21 PM EST2 rnJjhxf8201/22/2025 10:29 AM EST2 qhOkyur1101/22/2025 6:35 AM EST2 mg pantoprazole (PROTONIX) EC tablet 40 mg 40 [...] Mon01/21/25 at 0900 Given01/22/2025 9:03 AM EST3 wMFedzs7001/21/2025 10:18 PM EST3 mL traZODone (DESYREL) tablet 50 mg 50 mg, [...] Blood * 1521 (Given - Provider: Lotus Anthony RN) sodium chloride 0.9 % flush 3 mL 3 mL, intravenous, Every 12 hours scheduled, First dose (after last modification) on Mon01/21/25 at 0900 * 0900 (Not Given - Provider: Ramya Bui RN - Reason: Order parameters not met) * 2218 (Given - Provider: Carlos Bazan RN) * 0903 (Given - Provider: Lotus Anthony RN) * 1129 ([facility] Hold - Provider: Automatic Transfer Provider - Reason: Patient not available) * 1402 ([facility] Unhold - Provider: Automatic Transfer Provider) traZODone (DESYREL) tablet 50 mg 50 mg, oral, Nightly, First dose on Mon01/21/25 at 2200, Look-alike/sound-alike medication - verify indication for use. * 2218 (Given - Provider: Carlos Bazan RN) * 1129 ([facility] Hold - Provider: Automatic Transfer Provider - Reason: Patient not available) * 1402 ([facility] Unhold - Provider: Automatic Transfer Provider) Medication Order01/20/ lactated ringers infusion (CANCELED) 50 mL/hr, intravenous, [...] bleed * 0904 (New Bag - Provider: Ramay Bui RN) * 1829 (New Bag - Provider: Ramya Bui RN) * 0416 (New Bag - Provider: Carlos Bazan RN) * 1129 ([facility] Hold - Provider: Automatic Transfer Provider - Reason: Patient not available) * 1402 (Stop Bag - Provider: Lotus Anthony RN - Comment: [Order ends at this time. Document the following action when infusion is complete: Stop Bag]) * 1402 ([facility] Unhold - Provider: Lotus Anthony RN) sodium [...] (4000 mg) in 24 hours] * 1129 ([facility] Hold - Provider: Automatic Transfer Provider - Reason: Patient not available) * 1402 ([facility] Unhold - Provider: Automatic Transfer Provider) alum-mag hydroxide-simeth (MAALOX) 200-200-20 mg/5 mL suspension 30 mL 30 mL, oral, 4 times daily after meals and at bedtime as needed, dyspepsia, Starting on Mon01/21/25 at 0513, Look-alike/sound-alike medication - verify indication for use. Samuel malone, Indications: dyspepsia * 1129 ([facility] Hold - Provider: Automatic Transfer Provider - Reason: Patient not available) * 1402 ([facility] Unhold - Provider: Automatic Transfer Provider) magnesium sulfate IVPB 2000 mg/50 mL in iso-osmotic water (40 mg/mL premix) 2,000 mg, intravenous, at 25 mL/hr, Administer over 120 Minutes, As needed, Magnesium level 1.7-1.9, Starting on Mon01/21/25 at 0513, Recheck magnesium level 4 hours after infusion complete. With each magnesium result continue the replacement orders as needed. * 1129 ([facility] Hold - Provider: Automatic Transfer Provider - Reason: Patient not available) * 1402 ([facility] Unhold - Provider: Automatic Transfer Provider) magnesium sulfate IVPB 4000 mg/100 mL in iso-osmotic water (40 mg/mL premix) 4,000 mg, intravenous, at 25 mL/hr, Administer over 240 Minutes, As needed, Magnesium level 1.6 mg/dL or less, Starting on Mon01/21/25 at 0513, Recheck magnesium level 4 hours after infusion complete. With each magnesium result continue the replacement orders as needed. * 1129 ([facility] Hold - Provider: Automatic Transfer Provider - Reason: Patient not available) * 1402 ([facility] Unhold - Provider: Automatic Transfer Provider) meclizine (ANTIVERT) tablet 25 mg 25 mg, oral, 3 times daily PRN, dizziness, Starting on Mon01/21/25 at 0513, Look-alike/sound-alikemedication - verify indication for use. * 1129 ([facility] Hold - Provider: Automatic Transfer Provider - Reason: Patient not available) * 1402 ([facility] Unhold - Provider: Automatic Transfer Provider) midazolam [...] use. * 0559 (Given - Provider: Deepa Purvis RN) * 1023 (Given - Provider: Ramya Bui, RN) * 1427 (Given - Provider: Afua Hargrove, RN) * 1830 (Given - Provider: Ramya Bui, LOU) * 2230 (Given - Provider: Carlos Bazan RN) * 0255 (Given - Provider: Carlos Bazan RN) * 0635 (Given - Provider: Carlos Bazan RN) * 1029 (Given - Provider: Lotus Anthony, LOU) * 1129 ([facility] Hold - Provider: Automatic Transfer Provider - Reason: Patient not available) * 1402 ([facility] Unhold - Provider: Automatic Transfer Provider) * 1521 (Given - Provider: Lotus Anthony, LOU) ondansetron (PF) (ZOFRAN) injection 4 mg 4 mg, intravenous, Every 4 hours PRN, nausea, vomiting, Starting on Mon01/21/25 at 0513, Intravenous administration preferred to be given over 2-5 minutes. * 1129 ([facility] Hold - Provider: Automatic Transfer Provider - Reason: Patient not available) * 1402 ([facility] Unhold - Provider: Automatic Transfer Provider) potassium [...] - Provider: Ramya Bui RN) * 1129 ([facility] Hold - Provider: Automatic Transfer Provider - Reason: Patient not available) * 1402 ([facility] Unhold - Provider: Automatic Transfer Provider) potassium [...] - Provider: Ramya Bui RN) * 1129 ([facility] Hold - Provider: Automatic Transfer Provider - Reason: Patient not available) * 1402 ([facility] Unhold - Provider: Automatic Transfer Provider) potassium [...] - Provider: Ramya Bui RN) * 1129 ([facility] Hold - Provider: Automatic Transfer Provider - Reason: Patient not available) * 1402 ([facility] Unhold - Provider: Automatic Transfer Provider) sennosides-docusate sodium (SENOKOT-S) 8.6-50 mg 1 tablet 1 tablet, oral, Every 12 hours PRN, constipation, Starting on Mon01/21/25 at 0513 * 1129 ([facility] Hold - Provider: Automatic Transfer Provider - Reason: Patient not available) * 1402 ([facility] Unhold - Provider: Automatic Transfer Provider) sodium chloride 0.9 % flush 3 mL 3 mL, intravenous, As needed, line care, before and after each intermittent use, Starting on Mon01/21/25 at 0513 * 1129 ([facility] Hold - Provider: Automatic Transfer Provider - Reason: Patient not available) * 1402 ([facility] Unhold - Provider: Automatic Transfer Provider) sodium chloride 0.9 % flush 3 mL 3 mL, intravenous, As needed, line care, before and after each intermittent use, Starting on Mon01/21/25 at 0513 * 1129 ([facility] Hold - Provider: Automatic Transfer Provider - Reason: Patient not available) * 1402 ([facility] Unhold - Provider: Automatic Transfer Provider) Order [...] Teams Team MemberRelationshipSpecialtyStart DateEnd Date Tina Willis, [employer] [address] [place] [address] PCP - GeneralFamily Ffhmzuyh86/13/24documented as of this encounter
--- OUTSIDE RECORDS SUMMARY | 2025-01-22 13:11 | XMS_ITS | Encounter Summary ---
Author Organization [facility] [employer] [facility] tem Address [facility] [place]-[id number] [address] [place] [address] Care Team Providers Care Pediatric Acute Care Unit Nurse Name Role Phone Tina Herrera APRN-HIGH FREQUENCY MILL OPERATOR Primary Care Provider Reason for Visit * Auth/CertSpecialtyDiagnoses / ProceduresReferred By ContactReferred To Contact Diagnoses GI Bleed [facility] [address] [place] [phone] Referral IDStatusReasonStart DateExpiration DateVisits RequestedVisits [id number] Encounter Details DateTypeDepartmentCare Team (Latest Contact Info)Mghkmgtosty93/19/2025 1:11 PM ESTAnesthesia Event [facility] [address] [place] [phone] Zack Cavanaugh MD [address] [place] [address] Jose Juan Goldman MD [address] [place] [address] Anesthesia Record Procedure NameResponsible AnesthesiologistAnesthesia Start TimeAnesthesia Stop TimeESOPHAGOGASTRODUODENOSCOPY DIAGNOSTIC, Ana Luisa Cavanaugh MD01/22/25 1311 01/22/25 2745WalzAimcWctbiRxojbey58/19/809930185614Ku Sklbk0974Yi Start Rogr4897 Burcacbz2314Hr InductionThe patient was reevaluated immediately before moderate or deep sedation use and before anesthesia induction.1315Patient Ready for Zbllvsy4905nm stop gbik6300Tclrmujbe/Transfer From the BH9288Xvzdabz to RN Transported to:PACU, Spontaneous Ventilation, O2 per Room Air, n/a LPM Pt. Tolerated procedure well, vital signs stable and document on nursing record Care transferred to receiving NE4231Te Stop* NameTotallidocaine (XYLOCAINE) injection 2%100 mgpropofol (DIPRIVAN) bolus yfomohvom019 mglactated ringers mcfqserq995 mL * Agents Name Sevoflurane Inspired Sevoflurane * Blood No blood administrations on file. TypeDetailsPlacementRemovalPeripheral IVPlacement Date: 01/22/25; Placement Time: 1111; Catheter Size: 20 G; Orientation: Left, Posterior; Location: Hand; Site Prep: Chlorhexadine; Technique: Anatomical landmarks; Inserted by: Ana Lilia Gill RN; Insertion Attempts: 2; Patient Tolerance: Tolerated well; Removal Date: 01/22/25; Removal Time: 1111 by Lotus Anthony RN01/22/25 1733 by Lotus Anthony RNdocumented in this encounter Social History Tobacco UseTypesPacks/DayYears [...] RecordedIn the past 12 months has the [employer], oil, or water [employer] threatened to shut off services in your home?No01/21/2025Housing InstabilityAnswerDate RecordedAre you worried or concerned that in the next two months you may not have stable housing that you own, rent or stay in as a part of a household?No01/21/2025Hunger ScreeningAnswerDate RecordedWithin the past 12 months we worried whether our food would run out before we got money to buy more.Patient Xmfwnobv86/18/2025 Within the past 12 months the food we bought just didn't last and we didn't have money to get more.Patient Xbwfnwtr40/18/2025Sex and Gender InformationValueDate RecordedSex Assigned at BirthNot on fileLegal LdiBhic63/13/2024 1:45 PM EST Gender IdentityNot on fileSexual OrientationNot on filedocumented as of this encounter Functional Status documented as of this encounter OR Notes * Anesthesia Postprocedure Evaluation - Zack Cavanaugh MD - 01/22/2025 1:26 PM EST ANESTHESIA POST-EVALUATION [facility] Procedure Summary Date: 01/22/25 Room / Location: [facility] Anesthesia Start: 1311 Anesthesia Stop: 1326 Procedure: ESOPHAGOGASTRODUODENOSCOPY DIAGNOSTIC, BIOPSY Diagnosis: (GI Bleed) Surgeons: Didi Li MD Responsible Provider: Zack Cavanaugh MD Anesthesia Type: MAC ASA Status: 2 Vitals: 01/22/25 1140 BP: 122/89 Pulse: 77 Resp: 16 Temp: 36.6 ??C (97.9 ??F) SpO2: 96% Patient Evaluated: PACU Patient Participation: Complete - patient participated Patient Level of Consciousness: Awake and Alert Pain Management: Adequate Airway Patency: Patent Anesthetic Complications: No Cardiovascular Status: Hemodynamically Stable Respiratory Status: Stable/Baseline, Nonlabored Ventilation and Room Air Post-op Hydration: Euvolemic Final Anesthesia Type: MAC Does patient meet criteria to D/C from PACU?: Yes Is patient sedated pharmacologically at PACU D/C?: No No notable events documented. * Anesthesia Preprocedure Evaluation - Zack Cavanaugh MD - 01/22/2025 10:17 AM EST Images from the original note were not included. ANESTHESIA PRE-PROCEDURE EVALUATION [facility] Procedure(s): ESOPHAGOGASTRODUODENOSCOPY DIAGNOSTIC ANESTHESIA PHYSICAL EXAM Patient summary reviewed and nursing notes reviewed. No history of anesthetic complications Airway Mallampati: II TM distance: >3 FB Neck ROM: Full Patient is not intubated Patient does not have tracheostomy Mouth Opening:>= 4 cm (-) vocal cord disorder Dental : exam normal Pulmonary : exam normal Cardiovascular Exercise tolerance: >/= 4 METS ECG reviewed Rhythm: Regular Rate: Normal Comment: 01/28 EKG . Sinus rhythm . Probable left atrial enlargement . Left axis deviation . Abnormal R-wave progression, late transition $ . Baseline wander in lead(s) II III aVR aVF Neuro awake, oriented and alert Peds/menswear salesperson Abdominal NPO 8 hours Other Findings Past Medical History: No date: Hypertension Eyes ANESTHESIA PLAN ASA 2 Anesthesia Type: MAC Induction: Intravenous Post op Pain Management: IV Analgesics Post-op Transfer Plan: Transfer to PACU Anesthetic risks, plan and alternatives discussed with Patient. Plan discussed with DESIGN CHECKER. NPO Status: Date of last liquid: 01/21/25 Time of last liquid: 2100 Date of last solid: 01/21/25 Time of last solid: 1000 Past Medical History: Diagnosis Date Hypertension Past Surgical History: Procedure Laterality Date CYST REMOVAL cyst removal pancreas No Known Allergies Social History Tobacco Use Smoking Status Former Types: Cigarettes Smokeless Tobacco Current Alcohol Use: Not on file OB History: Estimated Date of Delivery: None noted. Scheduled Meds: sodium chloride, 3 mL, intravenous, Q12H ZACK traZODone, 50 mg, oral, Nightly Infusion Meds: pantoprazole (PROTONIX) 80 mg in sodium chloride 0.9 % 100 mL (0.8 mg/mL) infusion, 8 mg/hr, Last Rate: 8 mg/hr (01/22/25 0416) PRN Meds: acetaminophen alum-mag hydroxide-simeth magnesium sulfate magnesium sulfate meclizine morphine injection ondansetron potassium chloride OR potassium chloride OR potassium chloride IV (Adult) sennosides-docusate sodium sodium chloride sodium chloride Vitals: BP 122/81 Pulse 57 Temp 37 ??C (98.6 ??F) (Oral) Resp 16 Ht 190.5 cm (6' 3 ) Wt 100.4 kg (221 lb 5.5 oz) SpO2 97% BMI 27.67 kg/m?? Vent: Labs: Results from last 7 days Lab Units 01/22/25 0516 WBC 10^9/L 4.0 HEMOGLOBIN g/dL 8.5* HEMATOCRIT % 25.5* PLATELETS 10^9/L 213 Results from last 7 days Lab Units 01/22/25 0516 01/20/25 0550 01/19/25 1531 SODIUM mmol/L 136 < > -- POTASSIUM mmol/L 4.3 < > -- CHLORIDE mmol/L 104 < > -- CO2 mmol/L 25 < > -- BUN mg/dL 12 < > -- CREATININE mg/dL 0.91 < > -- CALCIUM mg/dL 8.2* < > -- MAGNESIUM mg/dL 2.2 < > -- ALBUMIN g/dL 2.9* < > -- AST U/L 30 < > -- ALT U/L 44* < > -- BILIRUBIN ASHVIN -- -- Small* BILIRUBIN, TOTAL mg/dL 0.6 < > -- PROTEIN ASHVIN -- -- 30 mg/dL* < > = values in this interval not displayed. Echo: No results found. Cath: No results found. EKG: No results found. Stress: 01/28 . Sinus rhythm . Probable left atrial enlargement . Left axis deviation . Abnormal R-wave progression, late transition $ . Baseline wander in lead(s) II III aVR aVF CXR: No results found. Carotid: No results found. Risk Factors: PONV: Intermediate Risk Total Score: 2 Score Rules Non-smoker Intended opioid administration Criteria that do not apply: Female patient History of PONV and/or Motion Sickness RCRI: Low Risk: Score of 0 = 3.9% (2.8-5.4%) Risk of major cardiac event Score of 1 = 6.0% (4.9-7.4%) Risk of major cardiac event Total Score: 0 Score Rules Criteria that do not apply: Cerebrovascular Disease Ischemic Heart Disease Congestive Heart Failure Elevated Risk Surgery Pre-operative Treatment with Insulin Pre-operative Creatinine >2 mg/dL / 176.8 mol/L documented in this encounter Plan of Treatment Not on file documented as of this encounter Goals GoalPatient Goal TypeAssociated ProblemsRecent ProgressPatient-Stated?Author Home Latrice Prakash RN Note: Evaluation of progress towards goal: Patient plans to discharge Home with Self Care. documented as of this encounter Visit Diagnoses Not on filedocumented in this encounter Administered Medications Medication OrderMAR ActionAction DateDoseRateSite lactated ringers infusion 50 mL/hr, intravenous, Continuous, Starting on Mon01/22/25 at 1130, For 1 day, Pre-op, If fluid restriction is not indicated, infuse at a rate up to 5 mL/kg/hr not to exceed the total replacement volume (2 ml/kg/hr) from the time NPO status was initiated. Tlbztkvuw60/19/2025 1:11 PM ESTNew Bag01/22/2025 12:16 PM EST50 mL/hr50 mL/hr lidocaine (XYLOCAINE) 20 mg/mL (2 %) injection intravenous, As needed, Starting on Mon01/22/25 at 1315, Anesthesia Intra-op Given01/22/2025 1:15 PM UAD993 mg propofol (DIPRIVAN) injection intravenous, As needed, Starting on Mon01/22/25 at 1315, Anesthesia Intra-op Given01/22/2025 1:19 PM EST20 jkHkxar9201/22/2025 1:18 PM EST40 zyYksqv3301/22/2025 1:17 PM EST40 mgdocumented in this encounter Care Teams Team MemberRelationshipSpecialtyStart DateEnd Tina Herrera APRN-HIGH FREQUENCY MILL OPERATOR [address] [place] [phone] PCP - GeneralFamily Wnukzajd66/13/24documented as of this encounter
--- OUTSIDE RECORDS SUMMARY | 2025-01-27 12:44 | XMS_ITS | Encounter Summary ---
Author Organization [employer] [facility] tem Address [facility]-[id number] [address] [place] [address] Care Team Providers Care Money Room Teller Name Role Phone Tina Herrera APRN-MACHINE GUIDE BASE WINDER Primary Care Provider Encounter Details DateTypeDepartmentCare Team (Latest Contact Info)Ckyzsktvhwn76/18/2025Travel Social History Tobacco UseTypesPacks/DayYears UsedDateSmoking Tobacco: FormerCigarettes [...] RecordedIn the past 12 months has the [employer], gas, oil, or water mascotsecret threatened to shut off services in your home?No01/21/2025Housing InstabilityAnswerDate RecordedAre you worried or concerned that in the next two months you may not have stable housing that you own, rent or stay in as a part of a household?No01/21/2025Hunger ScreeningAnswerDate RecordedWithin the past 12 months we worried whether our food would run out before we got money to buy more.Patient Bafdasye07/18/2025 Within the past 12 months the food we bought just didn't last and we didn't have money to get more.Patient Zufcwrhd90/18/2025Sex and Gender InformationValueDate RecordedSex Assigned at BirthNot on fileLegal VcjPtef47/13/2024 1:45 PM EST Gender IdentityNot on fileSexual OrientationNot on filedocumented as of this encounter Functional Status documented as of this encounter Plan of Treatment Not on file documented as of this encounter Goals GoalPatient Goal TypeAssociated ProblemsRecent ProgressPatient-Stated?Author Home Latrice Prakash RN Note: Evaluation of progress towards goal: Patient plans to discharge Home with Self Care. documented as of this encounter Visit Diagnoses Not on filedocumented in this encounter Care Teams Team MemberRelationshipSpecialtyStart DateEnd Date Tina Herrera, GLAZE HANDLER-MACHINE GUIDE BASE WINDER [address] [place] [phone] PCP - GeneralFamily Phwovtql18/13/24documented as of this encounter
--- OUTSIDE RECORDS SUMMARY | 2025-01-27 12:44 | XMS_ITS | Clinical Summary ---
Author Organization [facility] Address [address] [place] [address] Care Team Providers Care Access Spec Name Role Phone Jairo Gamboa MD Primary Care Provider [phone] Allergies No known active allergies Medications MedicationSigDispense QuantityRefillsLast FilledStart DateEnd DateStatus oxyCODONE IR (ROXICODONE) 20 mg tab Take by mouth.Active budesonide (PULMICORT FLEXHALER) 180 mcg/actuation aepb Inhale 2 Puffs as instructed twice daily.Active kplsoa-slkrpbyi-sqednfh (CREON 3) 3,000-9,500- 15,000 unit Take by mouth three times daily with meals.Active esomeprazole (NEXIUM) 40 mg capsule Take 1 capsule by mouth once daily. 60 capsule 03/20/2018Active promethazine (PHENERGAN) 25 mg tablet Take 25 mg by mouth every 6 hours as needed.Active amitriptyline (ELAVIL) 25 mg tablet Take 25 mg by mouth daily at bedtime.Active Active Problems ProblemNoted DateDiagnosed DateGallstone rbmmypadxkah95/28/2019 Family History Medical HistoryRelationCommentsgallstonesMaternal GrandmothergallstonesMother RelationStatusCommentsMaternal GrandmotherMother Social History Tobacco UseTypesPacks/DayYears UsedDateSmoking Tobacco: NeverSmokeless Tobacco: NeverArea Deprivation IndexAnswerDate RecordedNational Score (1-100), lower number is lower riskNot on file02/11/2020State Score (1-10), lower number is lower riskNot on file02/11/2020Data from: https://www.neighborhoodatlas.medicine.[facility]/. Last address used for calculationNot on file02/11/2020Sex and Gender InformationValueDate RecordedSex Assigned at BirthNot on fileLegal MtmKpcb15/02/2012 9:27 AM ESTGender Identity Not on fileSexual OrientationNot on file Last Filed Vital Signs Vital SignReadingTime TakenCommentsBlood Hvhrivjt323/26451 4:38 PM EST Twdsm05801/18/2020 4:38 PM WYJZuonythwkub25.6 ??C (97.9 ??F)08/07/2018 9:41 AM EDTRespiratory Vliu206808/07/2018 9:41 AM EDTOxygen Jfnhsnzkhh20%04/23/2019 4:38 PM ESTInhaled Oxygen Concentration--Qfkywf05.1 kg (203 lb)04/23/2019 4:38 PM EST Binbgw072.5 cm (6' 3 )04/23/2019 4:38 PM ESTBody Mass Index25.37004/23/2019 4:38 PM EST Plan of Treatment Health MaintenanceDue DateLast DoneCommentsAnxiety Wugenqvfi40/08/1997Depression Ommiostlc36/08/1997HIV Xelubuasd89/08/1997Hepatitis C Edprhikjt29/08/1997 DTaP,Tdap,Td Vaccine (1 - Tdap)1997Hepatitis B Vaccine (1 of 3 - 19+ 3- dose series)1997Lipid Molcmjivh48/08/2014CT Bwqzmgwbrabr52/08/2024 Cologuard (FIT-DNA)03/13/20234806Ttkbltbkphq99/08/2024olorectal Cancer Screening 2023iabetes Rsqquwfxg65, 03/20/2018Fecal Occult Blood 03/13/20233221Nxjsbpyrtxcki07/08/2024ovid-19 Vaccine ( season)2024 Influenza Vaccine (#1)5004/01/2019, 10/25/2018 Procedures Procedure NamePriorityDate/TimeAssociated DiagnosisCommentsCOMPREHENSIVE METABOLIC AJFOXRshrdid94/12/2019 11:32 AM EDT Preoperative examination from Last 3 Months or Most Recently Relevant to Health Maintenance Results * (ABNORMAL) COMP METABOLIC PANEL (05/15/2018 11:32 AM EDT)ComponentValueRef RangeTest MethodAnalysis TimePerformed AtPathologist SignatureProtein, Total 6.96.3 - 8.0 g/dL05/15/2018 6:22 PM [facility] LaboratoriesAlbumin4.2 3.9 - 4.9 g/dL05/15/2018 6:22 PM [facility] LaboratoriesCalcium9.38.5 - 10.2 mg/dL05/15/2018 6:22 PM [facility] LaboratoriesBilirubin, Total2.0(H)0.2 - 1.3 mg/dL05/15/2018 6:22 PM [facility] Laboratories Alkaline Ssexmmaclpr709(H)38 - 113 U/L05/15/2018 11:14 PM [facility] BzfxqnmaisgfEIQ194(H)14 - 40 U/L05/15/2018 6:25 PM [facility] GoamkptwzcisKldyjww953(H)74 - 99 mg/dL05/15/2018 6:22 PM [facility] LaboratoriesComment: The [place] Diabetes Association (ADA) provides guidance for cutoff values for fasting glucose and random glucose. The ADA defines fasting as no caloric intake for at least 8 hours. Fasting plasma glucose results between 100 to 125 mg/dL indicate increased risk for diabetes (prediabetes). Fasting plasma glucose results greater than or equal to 126 mg/dL meet the criteria for diagnosis of diabetes. In the absence of unequivocal hyperglycemia, results should be confirmed by repeat testing. In a patient with classic symptoms of hyperglycemia or hyperglycemic crisis, random plasma glucose results greater than or equal to 200 mg/dL meet the criteria for diagnosis of diabetes. Reference: Standards of Medical Care in Diabetes 2016, [place] Diabetes Association. Diabetes Care. 2016.39(Suppl 1). BUN4(L)9 - 24 mg/dL05/15/2018 6:22 PM [facility] LaboratoriesCreatinine 0.800.73 - 1.22 mg/dL05/15/2018 6:22 PM [facility] LaboratoriesSodium 984872 - 144 mmol/L05/15/2018 6:22 PM [facility] LaboratoriesPotassium 3.93.7 - 5.1 mmol/L05/15/2018 6:22 PM [facility] LaboratoriesChloride 21380 - 105 mmol/L05/15/2018 6:22 PM [facility] ObdlunmuxdmvZI21278 - 30 mmol/L05/15/2018 6:22 PM [facility] LaboratoriesAnion Ngu060 - 18 mmol/L05/15/2018 6:22 PM [facility] HpbnwbajjkdnNXS330(H)10 - 54 U/L 05/15/2018 6:22 PM [facility] LaboratorieseGFR->60 05/15/2018 6:22 PM [facility] LaboratorieseGFR-All Other Races>60. 05/15/2018 6:22 PM [facility] LaboratoriesComment: eGFR (Estimated GFR) Units of measure: mL/min/1.73 meters squared eGFR is derived from the reexpressed MDRD Study equation using the following parameters: serum creatinine, age, gender and race. The creatinine assay has been calibrated to be traceable to IDMS. An eGFR <60 mL/min/1.73m2 for >3 months is consistent with chronic kidney disease. Refer to KDOQI guidelines for clinical interpretation. In patients with unstable renal function, e.g. those with acute kidney injury, the eGFR may not accurately reflect actual GFR. Specimen (Source)Anatomical Location / LateralityCollection Method / Volume Collection TimeReceived TimeBlood specimen (specimen)BLOOD SPECIMEN / Unknown 05/15/2018 11:32 AM EDT05/15/2018 11:34 AM EDT Narrative Authorizing ProviderResult TypeResult StatusR Ajay Mccracken MDLABORATORYFinal ResultPerforming OrganizationAddressCity/State/ZIP CodePhone Number [facility] [address] [place] [address] [facility] [address] [place] [address] from Last 3 Months or Most Recently Relevant to Health Maintenance Insurance Care Teams Team MemberRelationshipSpecialtyStart DateEnd Date Jairo Gamboa MD [facility]CP - [facility]03/20/18
--- OUTSIDE RECORDS SUMMARY | 2025-01-27 12:44 | XMS_ITS | Encounter Summary ---
Author Organization [facility] [employer] [facility] tem Address [facility] [place] [facility]-V52028 [address] [place] [address] Care Team Providers Care Guest Services Officer Name Role Phone Tina Herrera Primary Care Provider Encounter Details DateTypeDepartmentCare Team (Latest Contact Info)Qnydokvaykw41/14/2025Travel Social History Tobacco UseTypesPacks/DayYears UsedDateSmoking Tobacco: Never AssessedAlcohol UseStandard Drinks/WeekCommentsNot Currently0 (1 standard drink = 0.6 oz pure alcohol)Hunger ScreeningAnswerDate RecordedWithin the past 12 months we worried whether our food would run out before we got money to buy more.Never True 01/17/2025Within the past 12 months the food we bought just didn't last and we didn't have money to get more.Never True01/17/2025Sex and Gender Information ValueDate RecordedSex Assigned at BirthNot on fileLegal HgtLbxq88/13/2024 1:45 PM ESTGender IdentityNot on fileSexual OrientationNot on filedocumented as of this encounter Plan of Treatment Not on file documented as of this encounter Visit Diagnoses Not on filedocumented in this encounter Care Teams Team MemberRelationshipSpecialtyStart DateEnd Date Tina Herrera APRN-CNP [address] [facility] [place] [address] PCP - GeneralFamily Iuwawgea80/13/24documented as of this encounter
--- OUTSIDE RECORDS SUMMARY | 2025-01-27 12:44 | XMS_ITS | Encounter Summary ---
Author Organization [employer] [facility] tem Address [facility] [id number] [address] [place] [address] Care Team Providers Care Textile Machinery Instructor Name Role Phone Tina Herrera APRN-BID CLERK Primary Care Provider Encounter Details DateTypeDepartmentCare Team (Latest Contact Info)Cmedyqesvce10/16/2025Travel Social History Tobacco UseTypesPacks/DayYears UsedDateSmoking Tobacco: FormerCigarettes Smokeless Tobacco: CurrentAlcohol UseStandard Drinks/WeekCommentsNot Currently0 (1 standard drink = 0.6 oz pure alcohol)PRAPARE - TransportationAnswerDate RecordedIn the past 12 months, has lack of transportation kept you from medical appointments or from getting medications?No01/19/2025In the past 12 months, has lack of transportation kept you from meetings, work, or from getting things needed for daily living?No01/19/2025HC UtilitiesAnswerDate RecordedIn the past 12 months has the [employer], gas, oil, or water [employer] threatened to shut off services in your home?No01/19/2025Housing InstabilityAnswerDate RecordedAre you worried or concerned that in the next two months you may not have stable housing that you own, rent or stay in as a part of a household?No01/19/2025Hunger ScreeningAnswerDate RecordedWithin the past 12 months we worried whether our food would run out before we got money to buy more.Never True01/20/2025Within the past 12 months the food we bought just didn't last and we didn't have money to get more.Never True01/20/2025Sex and Gender InformationValueDate RecordedSex Assigned at BirthNot on fileLegal GpoBhvb76/13/2024 1:45 PM ESTGender Identity Not on fileSexual OrientationNot on filedocumented as of this encounter Functional Status documented as of this encounter Plan of Treatment Not on file documented as of this encounter Visit Diagnoses Not on filedocumented in this encounter Additional Health Concerns InfectionOnset DateLast IndicatedResolved TimeRespiratory Rule-Out01/19/2025 2:01 PM ESTdocumented as of this encounter Care Teams Team MemberRelationshipSpecialtyStart DateEnd Date Tina Herrera, COSTUME DESIGN TEACHER-BID CLERK [address] [facility] [place] [address] PCP - GeneralFamily Cmummfmr65/13/24documented as of this encounter
--- OUTSIDE RECORDS SUMMARY | 2025-01-27 12:45 | XMS_ITS | Clinical Summary ---
Author Organization [employer] [facility] tem Address [id number] [address] [place] [address] Care Team Providers Care Plumber Assistant Name Role Phone Tina Herrera APRN-[facility] Primary Care Provider Allergies No known active allergies Medications MedicationSigDispense QuantityRefillsLast FilledStart DateEnd DateStatus hydroCHLOROthiazide (HYDRODIURIL) 12.5 mg tablet Take 1 tablet (12.5 mg total) by mouth daily.4Active flruiy-hrrvaqnj-dovbbjn (CREON) 3,000-9,500- 15,000 unit capsule,delayed release(DR/EC) Take by mouth.Active sertraline (ZOLOFT) 50 mg tablet Take 1 tablet (50 mg total) by mouth in the morning.04/10/2023ctive traZODone (DESYREL) 50 mg tablet Take 1 tablet (50 mg total) by mouth daily as needed.Active lidocaine (LIDODERM) 5 % Indications:Lumbar radiculopathyPlace 1 patch on the skin daily. Remove & Discard patch within 12 hours or as directed by MD Feldman patch 4Active ondansetron ODT (ZOFRAN ODT) 4 mg disintegrating tablet Dissolve 1 tablet (4 mg total) on tongue every 8 (eight) hours as needed for nausea for up to 6 doses. 6 tablet 5Active hydrOXYzine (ATARAX) 25 mg tablet Take 1 tablet (25 mg total) by mouth 2 (two) times a day as needed for itching. Active meclizine (ANTIVERT) 25 mg tablet Take 1 tablet (25 mg total) by mouth 3 (three) times a day as needed for dizziness. 30 tablet 5Active amoxicillin-pot clavulanate (AUGMENTIN) 875-125 mg per tablet Take 1 tablet by mouth every 12 (twelve) hours for 5 days. 10 tablet /5Active pantoprazole (PROTONIX) 40 mg EC tablet Take 1 tablet (40 mg total) by mouth in the morning and 1 tablet (40 mg total) in the evening. Takebefore meals. 60 tablet tive pantoprazole (PROTONIX) 20 mg EC tablet Take 1 tablet (20 mg total) by mouth in the morning. Discontinued(Stop Taking at Discharge) cyclobenzaprine (FLEXERIL) 10 mg tablet Take 1 tablet (10 mg total) by mouth 2 (two) times a day as needed for muscle spasms. 10 tablet Discontinued(Therapy completed) potassium chloride (K-TAB,KLOR-CON) 10 MEQ CR tablet Take 2 tablets (20 mEq total) by mouth in the morning and 2 tablets (20 mEq total) before bedtime. Do all this for 2 days. 8 tablet Expired Active Problems ProblemNoted DateDiagnosed PlsgJcskfwpxu86/17/2025ute cystitis with hematuria 01/20/20253174Abkkqoycwty13/17/4943Nodptfjjtdog66/17/9006Oylyytpsjfsqm08/17/2025 Elevated LFTs01/20/2025Hepatic bgkdevufh97/17/2025GI bleed01/20/2025Symptomatic btsenf5301/19/2025Gallstone zulgbqetolpf52/28/2019 Encounters DateTypeDepartmentCare TazxZfjxwmxldhs25/19/2025 1:11 PM ESTAnesthesia Event [facility] [address] [place] [address] [place] [phone] Zack Cavanaugh MD Kunkel, Thomas J, MD 01/22/2025 12:30 PM EST - 01/22/2025 1:00 PM ESTSurgery [facility] [address] [place] [address] [place] [phone] Didi Garcia MD ESOPHAGOGASTRODUODENOSCOPY DIAGNOSTIC, BIOPSY [62947 (CPT??)]01/21/2025 4:49 AM EST - 01/22/2025 6:12 PM ESTHospital Encounter [facility] [address] [facility] [address] Napoleon Klein MD Acute otitis media, unspecified otitis media type (Primary Dx) Discharge Disposition: Home01/21/20250338Igiofd93/16/2025 10:57 PM EST - 01/21/2025 4:00 AM ESTHospital Encounter [facility] - Med Surg [address] [place] [phone] Silas Keating MD Discharge Disposition: [facility]01/19/2025 12:57 PM EST - 01/19/2025 10:02 PM [facility] - Emergency [address] [place] [phone] Julian Dominguez MD Symptomatic anemia (Primary Dx) Discharge Disposition: [facility]01/19/20256839Jkljsl84/14/2025 7:23 PM EST - 01/18/2025 1:22 AM [facility] - Emergency [address] [place] [phone] Gilson Cabrera DO Chronic pancreatitis, unspecified pancreatitis type ([facility]) (Primary Dx); Hypokalemia Discharge Disposition: Home01/17/2025Travelfrom Last 3 Months Social History Tobacco UseTypesPacks/DayYears UsedDateSmoking Tobacco: FormerCigarettes [...] from getting things needed for daily living?No 01/21/2025HC UtilitiesAnswerDate RecordedIn the past 12 months has the electric, gas, oil, or water company threatened to shut off services in your home?No01/21/2025Housing InstabilityAnswerDate RecordedAre you worried or concerned that in the next two months you may not have stable housing that you own, rent or stay in as a part of a household?No01/21/2025Hunger ScreeningAnswer Date RecordedWithin the past 12 months we worried whether our food would run out before we got money to buy more.Patient Vraxccsb72/18/2025Within the past 12 months the food we bought just didn't last and we didn't have money to get more. Patient Mqqcnarl50/18/2025Sex and Gender InformationValueDate RecordedSex Assigned at BirthNot on fileLegal HumVump84/13/2024 1:45 PM ESTGender Identity Not on fileSexual OrientationNot on file Last Filed Vital Signs Vital SignReadingTime TakenCommentsBlood Tudyjvsa566/7501/22/2025 2:15 PM EST Hlumo021301/22/2025 2:15 PM WTKEbkthdsnzff43.7 ??C (98.1 ??F)01/22/2025 2:15 PM ESTRespiratory Nclk9137 2:15 PM ESTOxygen Ulsjhgfdrb92%01/22/2025 2:15 PM ESTInhaled Oxygen Concentration--Sochfr921.4 kg (221 lb 5.5 oz)01/22/2025 11:40 AM EAGPlvycm069.5 cm (6' 3 )01/22/2025 11:40 AM ESTBody Mass Index27.67 01/22/2025 11:40 AM EST Plan of Treatment Health MaintenanceDue DateLast DoneCommentsTobacco Jukeuebpax49/08/1979 Depression Hxoqzhqxi61/08/1991Adult BMI Follow Up Plan1996COVID-19 Vaccine ( season)/04/2021, 09/08/2020, 08/12/2020Influenza Fwfadnv00/27/2020Adult BMI Dnhzhojyc41Tobacco Kiugeruhe42DTaP,Tdap and Td Vaccines (2 - Td or Tdap) Goals GoalPatient Goal TypeAssociated ProblemsRecent ProgressPatient-Stated?Author Home Latrice Prakash RN Note: Evaluation of progress towards goal: Patient plans to discharge Home with Self Care. Medical Devices Not on file Procedures Procedure NamePriorityDate/TimeAssociated DiagnosisCommentsHEMOGLOBIN AND HEMATOCRIT, AGLHYYarvkov75/19/2025 4:55 PM EST PROVATION YVTEpvlfam97/19/2025 1:26 PM EST [place] ESOPHAGOGASTRODUODENOSCOPY TRANSORAL VXFHMXUTCQ77/19/2025 1:11 PM EST GI Bleed EGD103/24/2024 12:56 PM EST PROVATION SIIJlhiaiz93/19/2025 12:10 PM EST PROVATION DFHYodrbma51/19/2025 11:24 AM EST CBC WITH AUTO KDWXEBFNCNQTXkfywtb73/19/2025 5:16 AM EST GMHPYYSCTJnigcsq71/19/2025 5:16 AM EST COMPREHENSIVE METABOLIC TWXPBYdpxhzi39/19/2025 5:16 AM EST OCCULT BLOOD X 1, DNJOOHofzpjl14/18/2025 10:25 PM EST HEMOGLOBIN AND HEMATOCRIT, YZNLVKeedadi81/18/2025 4:51 PM EST COMPREHENSIVE METABOLIC PANELAdd-On01/21/2025 11:17 AM EST HEMOGLOBIN AND HEMATOCRIT, NTFSQGtxosvd42/18/2025 11:17 AM EST HEMOGLOBIN AND HEMATOCRIT, ZKDCZXldrnxp18/17/2025 5:26 PM EST DRUG SCREEN, FGLKDIubjnse39/17/2025 9:18 AM EST OSMOLALITY, KUAYCNazjhvc53/17/2025 9:18 AM EST SODIUM, URINE, VXMBIXCxxrwfs74/17/2025 9:18 AM EST URINE QFBEYMPNxdugew03/17/2025 9:18 AM EST HEMOGLOBIN E4TMsb-Ex44/17/2025 5:50 AM EST LIPASEAdd-On01/20/2025 5:50 AM EST TSH WITH REFLEXAdd-On01/20/2025 5:50 AM EST CBC WITH AUTO IWDJVMXVMOXBFrejxha58/17/2025 5:50 AM EST JWHBVNXXQLsjznez63/17/2025 5:50 AM EST COMPREHENSIVE METABOLIC UYFPQWsknsuo49/17/2025 5:50 AM EST OSMOLALITYAdd-On01/20/2025 5:45 AM EST HEPATITIS PANEL, ZGVTLWcwgptn72/17/2025 5:45 AM EST POCT NURSING URINE MACROSCOPIC AICksgxnt09/16/2025 3:31 PM EST BB ARC OHFRFNysrlnu19/16/2025 2:15 PM EST TYPE AND RWWNOZGTOC20/16/2025 2:15 PM EST TROP I, HIGH SENSITIVITY 1 JYDXAELO39/16/2025 2:[address] BRAIN WO DBPFFKFP17/16/2025 2:01 PM EST ER EXTRA URINE VAIPDICTLO84/16/2025 1:17 PM EST ER EXTRA URINE DHHNDHUGQNA04/16/2025 1:17 PM EST ER EXTRA AAAZJGGLV60/16/2025 1:17 PM EST SARS/FLU A+B/RSV BY NAAT/MOLECULAR (M4RT COLLECTION TUBE)STAT103/21/2024 1:17 PM EST EXTRA TUBES BLUE ITUBdsgaaz22/16/2025 1:16 PM EST REPEATED HXVCRRoctnfp19/16/2025 1:16 PM EST FERRITINAdd-On01/19/2025 1:16 PM EST IRON AND TIBCAdd-On01/19/2025 1:16 PM EST EXTRA MGKAZSflfumy19/16/2025 1:16 PM EST TROPONIN I, HIGH SENSITIVITY 0 MEASBOJA24/16/2025 1:16 PM EST TROPONIN I, HIGH SENSITIVITY 0 ZUZJHRGX12/16/2025 1:16 PM EST TTMBIETROK12/16/2025 1:16 PM EST LIVER CVNTEUMBT28/16/2025 1:16 PM EST BASIC METABOLIC FHAEVSYIB12/16/2025 1:16 PM EST CBC WITH AUTO OIBBXHWEEGHDNNRM74/16/2025 1:16 PM EST ED PHYSICIAN NIHSS AND THROMBOLYTIC KHFSGYUCRnmuewh96/16/2025 1:05 PM EST ECG 12-OESZCYTK16/16/2025 1:04 PM ESTBASIC METABOLIC RVGOVUDNY45/14/2025 11:[address] ABDOMEN AND PELVIS W MEXVQQWF81/14/2025 9:40 PM EST TROP I, HIGH SENSITIVITY 1 QHRUSKWT40/14/2025 8:26 PM EST NURSE FECAL KZOpjihga54/14/2025 7:45 PM EST EXTRA TUBES BLUE XFIZfljoyh14/14/2025 7:30 PM EST EXTRA GKDOXHlhukli70/14/2025 7:30 PM EST LIPASESTAT Add-on01/17/2025 7:30 PM EST TROPONIN I, HIGH SENSITIVITY 0 PDSIPWAY24/14/2025 7:30 PM EST COMPREHENSIVE METABOLIC GFPWIXASD70/14/2025 7:30 PM EST CBC WITH AUTO FEQAXFSCYODBOTBI31/14/2025 7:30 PM EST TROPONIN I, HIGH SENSITIVITY 0 ULIPZUCY58/14/2025 7:30 PM EST ECG 12-ZYZZXJWU05/14/2025 6:23 PM EST from Last 3 Months Results * (ABNORMAL) Hemoglobin and hematocrit, blood (01/22/2025 4:55 PM EST) Only the most recent of4 resultswithin the time period is included. ComponentValueRef RangeTest MethodAnalysis TimePerformed AtPathologist Signature Hemoglobin8.4(L)13 - 17 g/dL01/22/2025 5:[address] [facility] Iscluorsbu07.2(L)39 - 50 %01/22/2025 5:[address] [facility] Specimen (Source)Anatomical Location / LateralityCollection Method / Volume Collection TimeReceived TimeBloodVenous blood / UnknownVenipuncture / Unknown 01/22/2025 4:55 PM EST01/22/2025 5:00 PM EST Narrative Authorizing ProviderResult TypeResult StatusTasandrine Uribe RETAIL DELIVERY DRIVER-CNPLAB BLOOD ORDERABLESFinal ResultPerforming OrganizationAddressCity/State/ZIP CodePhone Number [facility] [address] [place] [address], * EGD Report (01/22/2025 1:26 PM EST) Only the most recent of3 resultswithin the time period is included. Specimen (Source)Anatomical Location / LateralityCollection Method / Volume Collection TimeReceived Time Narrative SYSTEMGENERATED, DOCUMENTATION - 01/22/2025 1:26 PM EST This order has been auto-finalized for image and report archival in PACs. *For full report details, please reach out to your physician. ??This image is visible to you in MyChart.* Authorizing ProviderResult TypeResult StatusMoteddy Li MDIMG OR IMG ORDERABLESFinal Result * EGD (01/22/2025 12:56 PM EST)Specimen (Source)Anatomical Location / Laterality Collection Method / VolumeCollection TimeReceived Time01/22/2025 12:56 PM EST Narrative PM CARDIOVASCULAR - 01/22/2025 1:36 PM EST [facility] Patient Name: Stanford Mccray ?? Procedure Date No Time: 01/22/2025 ?? CSN: [id number] Date of : 1980 Admit Type: Outpatient [...] Procedure Code(s): ? --- Professional --- ? 59496, Esophagogastroduodenoscopy, flexible, ? transoral; with biopsy, single or multiple Diagnosis Code(s): ? --- Professional --- ? K22.89, Other specified disease of esophagus ? K31.89, Other diseases of stomach and duodenum ? 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 All rights reserved. The codes documented in this report are preliminary and upon electronic component processor review may be revised to meet current compliance requirements. MD Didi Tatum, 01/22/2025 1:35:33 PM Number of Addenda: 0 Note Initiated On: 01/22/2025 12:56 PM Procedure Note Didi Garcia MD - 01/22/2025 [facility] Patient Name: Stanford Mccray Procedure Date No Time: 01/22/2025 CSN: [id number] Date of : 1980 Admit Type: Outpatient [...] pathology results. 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 All rights reserved. The codes documented in this report are preliminary and upon electronic component processor reviewmay be revised to meet current compliance requirements. MD Didi Tatum, 01/22/2025 1:35:33 PM Number of Addenda: 0 Note Initiated On: 01/22/2025 12:56 PM Authorizing ProviderResult TypeResult StatusMoteddy HAWK PROCEDURE ORDERABLESFinal ResultPerforming OrganizationAddressCity/State/ZIP CodePhone Number PM CARDIOVASCULAR * (ABNORMAL) CBC auto differential (01/22/2025 5:16 AM EST) Only the most recent of4 resultswithin the time period is included. ComponentValueRef RangeTest MethodAnalysis TimePerformed AtPathologist Signature WBC4.04 - 11 10^L103/24/2024 5:[address] [facility] Count 3.48(L)4.1 - 5.7 10^12/L103/24/2024 5:[address] [facility] Hemoglobin8.5(L)13 - 17 g/dL01/22/2025 5:[address] [facility] Yjxyjqympq72.5(L)39 - 50 %01/22/2025 5:[address] [facility]ENTERMCV73 (L)80 - 100 fL01/22/2025 5:[address] [facility]ENTERMCH24.4(L)27 - 34 pg01/22/2025 5:[address] [facility]ENTERMCHC33.432 - 36 g/dL 01/22/2025 5:[address] [facility]ENTERRDW15.8(H)11.5 - 15 %01/22/2025 5:[address] [facility] CENTERPlatelet Vrmll927221 - 450 10^9/L 01/22/2025 5:[address] [facility]ENTERMPV7.87 - 12 fL01/22/2025 5:54 AM [facility] HOSPITALNeutrophils %70.7%01/22/2025 5:[address] [facility]ENTERLymphocytes %14.6%01/22/2025 5:54 AM [facility] HOSPITALMonocytes %10.7%01/22/2025 5:54 AM [facility] HOSPITALEosinophils %3.5%01/22/2025 5:54 AM [facility] Basophils %0.5%01/22/2025 5:[address] [facility] CENTERNeutrophils Absolute (A)2.81.5 - 6.6 10^9/L103/24/2024 5:[address] [facility] Lymphocytes Absolute0.6(L)1.0 - 3.5 10^9L103/24/2024 5:54 AM [facility] HOSPITALMonocytes Absolute0.40.0 - 0.9 10^9/L103/24/2024 5:54 AM [facility] HOSPITALEosinophils Absolute0.10.0 - 0.4 10^9/L103/24/2024 5:[address] [facility] CENTERBasophils Absolute0.00.0 - 0.2 10^9/L103/24/2024 5:[address] [facility] CENTERDifferential TypeAUTOMATED DIFFERENTIAL 01/22/2025 5:54 AM [facility] (Source)Anatomical Location / LateralityCollection Method / VolumeCollection TimeReceived TimeBlood Venous blood / UnknownVenipuncture / Djvbdwe0401/22/2025 5:16 AM EST01/22/2025 5:46 AM EST Narrative Authorizing ProviderResult TypeResult StatusTaeler Rony [employer] BLOOD ORDERABLESFinal ResultPerforming OrganizationAddressCity/State/ZIP CodePhone Number [address] [place] [address], [place] * Magnesium (01/22/2025 5:16 AM EST) Only the most recent of2 resultswithin the time period is included. ComponentValueRef RangeTest MethodAnalysis TimePerformed AtPathologist Signature MAGNESIUM2.21.8 - 2.6 mg/dL01/22/2025 6:[address] [facility] Specimen (Source)Anatomical Location / LateralityCollection Method / Volume Collection TimeReceived TimeBloodVenous blood / UnknownVenipuncture / Unknown 01/22/2025 5:16 AM EST01/22/2025 5:47 AM EST Narrative Authorizing ProviderResult TypeResult StatusTaeler Rony [employer] BLOOD ORDERABLESFinal ResultPerforming OrganizationAddressCity/State/ZIP CodePhone Number [address] [place] [address], [place] * (ABNORMAL) Comprehensive metabolic panel (01/22/2025 5:16 AM EST) Only the most recent of4 resultswithin the time period is included. ComponentValueRef RangeTest MethodAnalysis TimePerformed AtPathologist Signature TGFDZO315853 - 146 mmol/L103/24/2024 6:[address] [facility] POTASSIUM4.33.5 - 5.0 mmol/L103/24/2024 6:[address] [facility] BZMSPYCS43455 - 109 mmol/L103/24/2024 6:[address] [facility] CARBON RSQUGBO9131 - 32 mmol/L103/24/2024 6:[address] [facility] ANION GAP75 - 15 mmol/L103/24/2024 6:[address] [facility] CENTERBLOOD UREA ITSIKXPQ514 - 23 mg/dL01/22/2025 6:[address] [facility] CREATININE0.910.70 - 1.20 mg/dL01/22/2025 6:[address] [facility] Comment:METHOD TRACEABLE TO IDMS EQNUZYKIBNQCJAR260(H)65 - 99 mg/dL01/22/2025 6:[address] [facility] CENTERCALCIUM8.2(L)8.5 - 10.5 mg/dL01/22/2025 6:[address] [facility] CENTERTOTAL PROTEIN6.36.0 - 8.0 g/dL01/22/2025 6:[address] [facility] CENTERALBUMIN2.9(L)3.2 - 5.3 g/dL01/22/2025 6:[address] [facility] CENTERALKALINE HQLNXZSAUEY68304 - 130 U/L103/24/2024 6:[address] [facility] CENTERAST30<=41 U/L103/24/2024 6:[address] [facility]ENTERALT44(H)<=40 U/L103/24/2024 6:[address] [facility] CENTERBILIRUBIN,TOTAL0.60.3 - 1.2 mg/dL01/22/2025 6:[address] [facility] MEDICAL CENTEREGFR Non-Race Dependent>90>=60 ml/min/1.73sq.m103/24/2024 6:[address] [facility] CENTERComment: eGFR not reported due to non-numeric value for Creatinine. Reported eGFR is based on the CKD-EPI 2020 equation that does not use a race coefficient. Specimen (Source)Anatomical Location / LateralityCollection Method / Volume Collection TimeReceived TimeBloodVenous blood / UnknownVenipuncture / Unknown 01/22/2025 5:16 AM EST01/22/2025 5:47 AM EST Narrative Authorizing ProviderResult TypeResult StatusTaeler Rony RETAIL DELIVERY DRIVER-CNPLAB BLOOD ORDERABLESFinal ResultPerforming OrganizationAddressty/State/ZIP CodePhone Number [facility] [address] [place] [address], [place] * (ABNORMAL) Occult blood x 1, stool (01/21/2025 10:25 PM EST)ComponentValueRef RangeTest MethodAnalysis TimePerformed AtPathologist SignatureFECAL OCCULT BLOODPositive(A)Fvuqjzbd85/18/2025 10:[address] [facility] Specimen (Source)Anatomical Location / LateralityCollection Method / Volume Collection TimeReceived TimeStoolFeces / Ayehpmd7301/21/2025 10:25 PM EST 01/21/2025 10:29 PM EST Narrative Authorizing ProviderResult TypeResult StatusTaeler Rony RETAIL DELIVERY DRIVER-CNPBODY FLUIDS AND STOOLS ORDERABLESFinal ResultPerforming OrganizationAddressty/State/ZIP CodePhone Number [place] [phone] [place] [address], [place] * (ABNORMAL) Drug Screen, Urine (01/20/2025 9:18 AM EST)ComponentValueRef Range Test MethodAnalysis TimePerformed AtPathologist SignatureAMPHETAMINE/METHAMP FldpedszGsxcurmp18/17/2025 10:11 AM [facility] AMPH/METH screening cut off = 1000 ng/mLCOCAINE METABOLITENegativeNegative 01/20/2025 10:11 AM [facility]:Cocaine screening cut off value = 300 ng/bARUFCHZMYcsfozgyKetlxjnf58/17/2025 10:11 AM [facility]Ecstasy screening cut off value = 500 ng/mL BDLOZUWOJOctbxsitNticnlbi26/17/2025 10:11 AM [facility] Comment:Methadone screening cut off value = 300 ng/mL.OPIATESPositive(A) Xiriiyjx23/17/2025 10:11 AM [facility] Opiates screening cut off value = 300 ng/mL This test is used for the detection of codeine, hydrocodone (>1000 ng/mL), morphine and hydromorphone (>900 ng/mL) in urine. LFTZHFKQLLxgjfnloRumpzxlx12/17/2025 10:11 AM [facility] Comment: Oxycodone screening cut off value = 300 ng/mL This test is used for the detection of oxycodone and oxymorphone in urine. WPLVTJXEZNRJCOefyzvtyHbhxacnv57/17/2025 10:11 AM [facility] Comment:Phencyclidine screening cut off value = 25 ng/mLCANNABINOIDSNegative Nafkeyro18/17/2025 10:11 AM [facility]: Cannabinoids/THC screening cut off value = 50 ng/mLUrine BarbituratesNegative Tshwhglf92/17/2025 10:11 AM [facility]:Barbiturates screening cut off value = 200 ng/bCURTWNBDSTFUSLIMOtvexjahAxcsvkek09/17/2025 10:11 AM [facility]:Benzodiazepines screening cut off value = 200 ng/mLSpecimen (Source)Anatomical Location / LateralityCollection Method / VolumeCollection TimeReceived TimeUrineUrine specimen collection, clean catch / Ygvfrol5901/20/2025 9:18 AM EST01/20/2025 9:27 AM EST Narrative [facility] - 01/20/2025 10:11 AM EST Confirmation available upon request. Authorizing ProviderResult TypeResult StatusRachel Ragle RETAIL DELIVERY DRIVER-CNPURINE ORDERABLESFinal ResultPerforming OrganizationAddressCity/State/[place] [address], * Sodium, urine, random (01/20/2025 9:18 AM EST)ComponentValueRef RangeTest MethodAnalysis TimePerformed AtPathologist SignatureURINE SODIUM,YSHPXT26 mmol/L103/22/2024 2:21 PM [facility] LABORATORYSpecimen (Source)Anatomical Location / LateralityCollection Method / VolumeCollection TimeReceived TimeUrineUrine specimen collection, clean catch / Unknown 01/20/2025 9:18 AM EST01/20/2025 9:27 AM EST Narrative Authorizing ProviderResult TypeResult StatusRachel Ragle RETAIL DELIVERY DRIVER-CNPURINE ORDERABLESFinal ResultPerforming OrganizationAddressCity/State/ZIP CodePhone Number [facility] [address] [place] [address], * Osmolality, urine (01/20/2025 9:18 AM EST)ComponentValueRef RangeTest Method Analysis TimePerformed AtPathologist SignatureURINE SZZNFFWFYA798756 - 1,300 mOsm/kg H201/20/2025 2:06 PM [facility] LABORATORYSpecimen (Source)Anatomical Location / LateralityCollection Method / VolumeCollection TimeReceived TimeUrineUrine specimen collection, clean catch / Unknown 01/20/2025 9:18 AM EST01/20/2025 9:27 AM EST Narrative Authorizing ProviderResult TypeResult StatusRachel Ragle RETAIL DELIVERY DRIVER-CNPURINE ORDERABLESFinal ResultPerforming OrganizationAddressCity/State/ZIP CodePhone Number [facility] [address] [place] [address], * Urine Culture Urine, Clean Catch Midstream (01/20/2025 9:18 AM EST)Component ValueRef RangeTest MethodAnalysis TimePerformed AtPathologist SignatureCULTURE RESULTS<10,000 ORGANISMS/mL NORMAL URO GENITAL FLORA01/21/2025 8:18 AM EST [facility] LABORATORYSpecimen (Source)Anatomical Location / LateralityCollection Method / VolumeCollection TimeReceived TimeUrineUrine specimen collection, clean catch / Kxqnaxq6801/20/2025 9:18 AM EST01/20/2025 9:27 AM EST Narrative Authorizing ProviderResult TypeResult StatusRachel Ragle RETAIL DELIVERY DRIVER-CNPMICROBIOLOGY - GENERAL ORDERABLESFinal ResultPerforming OrganizationAddressCity/State/ZIP Code Phone Number [facility] [address] [place] [address], * TSH with Reflex (01/20/2025 5:50 AM EST)ComponentValueRef RangeTest Method Analysis TimePerformed AtPathologist SignatureTSH2.170.49 - 4.67 uIU/mL 01/20/2025 8:06 AM [facility] ([facility])Anatomical Location / LateralityCollection Method / VolumeCollection TimeReceived Time BloodVenous blood / UnknownVenipuncture / Rtxmimp3701/20/2025 5:50 AM EST 01/20/2025 6:04 AM EST Narrative Authorizing ProviderResult TypeResult StatusRachel Ragle RETAIL DELIVERY DRIVER-CNPLAB BLOOD ORDERABLESFinal ResultPerforming OrganizationAddressCity/State/[place] [address], * Lipase (01/20/2025 5:50 AM EST) Only the most recent of3 resultswithin the time period is included. ComponentValueRef RangeTest MethodAnalysis TimePerformed AtPathologist Signature SZRHCV4333 - 40 U/L103/22/2024 7:46 AM [facility] (Source)Anatomical Location / LateralityCollection Method / VolumeCollection TimeReceived TimeBloodVenous blood / UnknownVenipuncture / Ypyenss1201/20/2025 5:50 AM EST01/20/2025 6:04 AM EST Narrative Authorizing ProviderResult TypeResult StatusRachel Ragle RETAIL DELIVERY DRIVER-CNPLAB BLOOD ORDERABLESFinal ResultPerforming OrganizationAddressCity/State/[place] [address], * Hemoglobin A1c (01/20/2025 5:50 AM EST)ComponentValueRef RangeTest Method Analysis TimePerformed AtPathologist SignatureHEMOGLOBIN A1C5.54.4 - 5.6 % 01/20/2025 10:52 AM [facility] LABORATORYComment: ?ADA Guidelines ?Result ?HgbA1c ? Normal : ? less than 5.7 % ? Prediabetes : ?5.7 % ??to 6.4 % Diabetes : > 6.4 % ?Use with caution in patients with abnormal hemoglobin variants as ??the half-life of red blood cells and in vivo glycation rates are ??affected. EST. AVERAGE TFAOCRR394eb/dL01/20/2025 10:52 AM [facility] LABORATORYSpecimen (Source)Anatomical Location / LateralityCollection Method / VolumeCollection TimeReceived TimeBloodVenous blood / UnknownVenipuncture / Rnzztzg0701/20/2025 5:50 AM EST01/20/2025 6:04 AM EST Narrative Authorizing ProviderResult TypeResult StatusRachel Katerine RETAIL DELIVERY DRIVER-CNPLAB BLOOD ORDERABLESFinal ResultPerforming OrganizationAddressCity/State/ZIP CodePhone Number [facility] [address] [place] [address], * Hepatitis panel, acute (01/20/2025 5:45 AM EST)ComponentValueRef RangeTest MethodAnalysis TimePerformed AtPathologist SignatureHEPATITIS B SURF AG Hdk-OrpwlzlxLoc-Rfiacool82/17/2025 11:04 AM [facility] LABORATORYHEPATITIS A LOCSln-JcnuqqvyTdh-Rnkikqzu49/17/2025 11:04 AM [facility] LABORATORYHEPATITIS B CORE QKJIdu-AnwvovgnAwr-Oxateplb 01/20/2025 11:04 AM [facility] LABORATORYANTI HCV W/PCR REFLX Dun-XcojdyscXop-Xejppifv34/17/2025 11:04 AM [facility] LABORATORYComment: If recent infection suspected, recommend repeat testing (>2 months). Wkarpe-ba-iwoujv ratio is <1.0. Specimen (Source)Anatomical Location / LateralityCollection Method / Volume Collection TimeReceived TimeBloodVenous blood / UnknownVenipuncture / Unknown 01/20/2025 5:45 AM EST01/20/2025 7:35 AM EST Narrative Authorizing ProviderResult TypeResult StatusRachel Ragle RETAIL DELIVERY DRIVER-CNPLAB BLOOD ORDERABLESFinal ResultPerforming OrganizationAddressCity/State/ZIP CodePhone Number [facility] [address] [place] [address], [place] [phone] * (ABNORMAL) Osmolality (01/20/2025 5:45 AM EST)ComponentValueRef RangeTest MethodAnalysis TimePerformed AtPathologist ArgcdqalaUUYNCFPEBS672(L)280 - 300 mOsm/kg H201/20/2025 10:06 AM [facility] LABORATORYSpecimen (Source)Anatomical Location / LateralityCollection Method / VolumeCollection TimeReceived TimeBloodVenous blood / UnknownVenipuncture / Eivuqjk0501/20/2025 5:45 AM EST01/20/2025 7:35 AM EST Narrative Authorizing ProviderResult TypeResult StatusRachel Katerine RETAIL DELIVERY DRIVER-CNPLAB BLOOD ORDERABLESFinal ResultPerforming OrganizationAddressCity/State/ZIP CodePhone Number [facility] [address] [place] [address], * (ABNORMAL) POCT Nursing Urine Macroscopic UA (01/19/2025 3:31 PM EST)Component ValueRef RangeTest MethodAnalysis TimePerformed AtPathologist SignaturePO Urine Specific Gravity1.0151.010, 1.015, 1.020, 1.9525401/19/2025 3:33 PM EST [facility] Urine Leukocyte EsteraseSmall(A) Rdgwtekg06/16/2025 3:33 PM [facility]PROM[facility] Urine KpfqcbtWyozaawfWpyvmuth35/16/2025 3:33 PM [facility]PROM[facility] Urine pH6.05.0, 6.0, 6.5, 7.0, 7.5, 8.0, 8.5, 5.511 3:33 PM ESTPROM[facility] Urine Ctjgjlq55 mg/dL(A)Negative 01/19/2025 3:33 PM [facility]PROM[facility] Urine Glucose RkltxlmeKvausiar30/16/2025 3:33 PM [facility]PROM[facility] Urine HwwzadhIcqtcorqDpmgzbzu71/16/2025 3:33 PM [facility]PROM[facility] Urine Urobilinogen>=8.0 E.U./dL01/19/2025 3:33 PM [facility] Urine BilirubinSmall(A)Vqyixndn95/16/2025 3:33 PM [facility]PROT[facility] Urine Blood/HGBTrace(A)Negative 01/19/2025 3:33 PM [facility] (Source) Anatomical Location / LateralityCollection Method / VolumeCollection Time Received JamrHdute74/16/2025 3:31 PM EST01/19/2025 3:33 PM EST Narrative Authorizing ProviderResult TypeResult StatusPatrick William Dominguez MDPOINT OF CARE TEST ORDERABLESFinal ResultPerforming OrganizationAddressCity/State/ZIP CodePhone Number [address] [place] [address], [place] * BB ARC TUBES (01/19/2025 2:15 PM EST)ComponentValueRef RangeTest Method Analysis TimePerformed AtPathologist SignatureExtra TubeAuto Resulted 01/19/2025 4:01 PM [facility] (Source) Anatomical Location / LateralityCollection Method / VolumeCollection Time Received TimeBloodVenous blood / UnknownVenipuncture / Zubaypr2801/19/2025 2:15 PM EST01/19/2025 2:22 PM EST Narrative Authorizing ProviderResult TypeResult StatusJulian Dominguez MDBLOOD BANK TEST ORDERABLESFinal ResultPerforming OrganizationAddressty/State/[facility] CodePhone Number [address] [place] [address], [place] * Troponin I, High Sensitivity 1 Hour (01/19/2025 2:15 PM EST) Only the most recent of2 resultswithin the time period is included. ComponentValueRef RangeTest MethodAnalysis TimePerformed AtPathologist Signature TROPONIN I, HIGH SENSITIVITY3<21 ng/L103/21/2024 2:52 PM [facility] (Source)Anatomical Location / LateralityCollection Method / VolumeCollection TimeReceived TimeBloodVenous blood / Unknown Venipuncture / Alpskiz2301/19/2025 2:15 PM EST01/19/2025 2:22 PM EST Narrative Authorizing ProviderResult TypeResult StatusPatricvicky Dominguez MDLAB BLOOD ORDERABLESFinal ResultPerforming OrganizationAddressCity/State/ZIP CodePhone Number [facility] [address] [place] [address], [place] * Type and screen(includes indirect noris) (01/19/2025 2:15 PM EST)Component ValueRef RangeTest MethodAnalysis TimePerformed AtPathologist SignatureABOO 01/19/2025 3:17 PM ESTFRE BB - YWFJPKVTNVecnztaa20/16/2025 3:17 PM ESTFRE BB - WELLSKYAntibody JkrcvoTkbvaxic49/16/2025 3:17 PM ESTFRE BB - WELLSKYSpecimen (Source)Anatomical Location / LateralityCollection Method / VolumeCollection TimeReceived TimeBloodVenous blood / UnknownVenipuncture / Npbqung6501/19/2025 2:15 PM EST01/19/2025 2:22 PM EST Narrative Authorizing ProviderResult TypeResult StatusHanytricvicky Dominguez MDBLOOD BANK TEST ORDERABLESEdited Result - FinalPerforming OrganizationAddressCity/State/ZIP Code Phone Number ANTHONY Colon WELDONLUPE [address] [address], [place] * CT brain without contrast (01/19/2025 2:01 [...] on 01/19/2025 2:05 PM Authorizing ProviderResult TypeResult StatusHanytricvicky RILEY CT ORDERABLES Final Result * Extra Urine [place] (01/19/2025 1:17 PM EST)ComponentValueRef RangeTest Method Analysis TimePerformed AtPathologist SignatureExtra TubeAuto Resulted 01/19/2025 4:02 PM ESTPROM[facility]ENTERpecimen (Source) Anatomical Location / LateralityCollection Method / VolumeCollection Time Received TimeUrineUrine specimen collection, clean catch / Iyywiye3001/19/2025 1:17 PM EST01/19/2025 3:47 PM EST Narrative Authorizing ProviderResult TypeResult StatusHanytricvicky Dominguez MDURINE ORDERABLES Final ResultPerforming OrganizationAddressCity/State/ZIP CodePhone Number [facility] [address] [place] [address], [place] * Extra Urine Culture (01/19/2025 1:17 PM EST)ComponentValueRef RangeTest Method Analysis TimePerformed AtPathologist SignatureExtra TubeAuto Resulted 01/19/2025 4:[address] [facility] ([facility]) Anatomical Location / LateralityCollection Method / VolumeCollection Time Received TimeUrineUrine specimen collection, clean catch / Dghpuqo9501/19/2025 1:17 PM EST01/19/2025 3:47 PM EST Narrative Authorizing ProviderResult TypeResult StatusPatricvicky CANTU ORDERABLES Final ResultPerforming OrganizationAddressty/State/ZIP CodePhone Number [address] [address], * Extra Urine (01/19/2025 1:17 PM EST)ComponentValueRef RangeTest MethodAnalysis TimePerformed AtPathologist SignatureExtra TubeAuto Deqvjhkr43/16/2025 4:02 PM [facility] (Source)Anatomical Location / LateralityCollection Method / VolumeCollection TimeReceived TimeUrineUrine specimen collection, clean catch / Modovxl1401/19/2025 1:17 PM EST01/19/2025 3:47 PM EST Narrative Authorizing ProviderResult TypeResult StatusPatricvicky CANTU ORDERABLES Final ResultPerforming OrganizationAddressty/State/ZIP CodePhone Number [address] [address], * SARS/FLU A+B/RSV by NAAT/Molecular (M4RT Collection Tube) (01/19/2025 1:17 PM EST)ComponentValueRef RangeTest MethodAnalysis TimePerformed AtPathologist SignatureFLU A CUBSkyraspfHgmyvasr71/16/2025 2:01 PM ESTUNIV[facility]ITY [facility] MED[facility] CENTERFLU B DFXJuupbxspYgiybfhc83/16/2025 2:01 PM ESTUNIVERSITY HOSPITALS LAKE WEST MEDICAL CENTERRSV BY OTZCbbcmthkCmukyscm40/16/2025 2:01 PM EST [facility] COV 2 BY PCRNot DetectedNot Detected 01/19/2025 2:01 PM [facility] (Source) Anatomical Location / LateralityCollection Method / VolumeCollection Time Received TimeSwabNasopharyngeal structure / Ysqdgtu0301/19/2025 1:17 PM EST 01/19/2025 1:19 PM EST Narrative [facility] - 01/19/2025 2:01 PM EST The Xpert [...] operators who are performing tests using either [employer] or [employer] systems and is limited to laboratories that [...] repeat. Fact Sheet for Healthcare Providers: ?? https://www.fda.gov/media/318143/download ? Fact Sheet for Patients: ?? https://www.fda.gov/media/700115/download ?? Authorizing ProviderResult TypeResult StatusPatrick William Dominguez MDMICROBIOLOGY - GENERAL ORDERABLESFinal ResultPerforming OrganizationAddressCity/State/ZIP Code Phone Number [facility] [address] [address], [place] * Troponin I, High Sensitivity 0 Hour (01/19/2025 1:16 PM EST) Only the most recent of2 resultswithin the time period is included. ComponentValueRef RangeTest MethodAnalysis TimePerformed AtPathologist Signature TROPONIN I, HIGH SENSITIVITY3<21 ng/L103/21/2024 1:51 PM [facility] (Source)Anatomical Location / LateralityCollection Method / VolumeCollection TimeReceived TimeBloodVenous blood / Unknown Venipuncture / Svwoxtj2301/19/2025 1:16 PM EST01/19/2025 1:19 PM EST Narrative Authorizing ProviderResult TypeResult StatusPatricvicky Dominguez MDLAB BLOOD ORDERABLESFinal ResultPerforming OrganizationAddressCity/State/ZIP CodePhone Number [address] [address], [place] * Light Blue Top (01/19/2025 1:16 PM EST) Only the most recent of2 resultswithin the time period is included. ComponentValueRef RangeTest MethodAnalysis TimePerformed AtPathologist Signature Extra TubeAuto Lhmfdqjw13/16/2025 3:01 PM [facility] Specimen (Source)Anatomical Location / LateralityCollection Method / Volume Collection TimeReceived TimeBloodVenous blood / Dnsqbsi5901/19/2025 1:16 PM EST 01/19/2025 1:20 PM EST Narrative Authorizing ProviderResult TypeResult StatusPatricvicky Dominguez MDLAB BLOOD ORDERABLESFinal ResultPerforming OrganizationAddressCity/State/ZIP CodePhone Number [address] [address], [place] * ABO Rh Repeat (01/19/2025 1:16 PM EST)ComponentValueRef RangeTest Method Analysis TimePerformed AtPathologist NpcjbmkbkQFBH35/16/2025 4:53 PM ESTFRE BB - BGLTQNAEVVtillpme80/16/2025 4:53 PM ESTFRE BB - WELLSKYSpecimen (Source) Anatomical Location / LateralityCollection Method / VolumeCollection Time Received TimeBloodVenous blood / UnknownVenipuncture / Ydwvaai9601/19/2025 1:16 PM EST01/19/2025 1:19 PM EST Narrative Authorizing ProviderResult TypeResult StatusJulian Dominguez MDBLOOD BANK TEST ORDERABLESFinal ResultPerforming OrganizationAddressCity/State/ZIP CodePhone Number ANTHONY PINEDA [address] [place] [address], [place] * (ABNORMAL) Iron and TIBC (01/19/2025 1:16 PM EST)ComponentValueRef RangeTest MethodAnalysis TimePerformed AtPathologist XvsgwyujiRJFF48(L)50 - 212 ug/dL 01/20/2025 12:45 AM [facility] LABORATORYIRON BEXKAQK071840 - 425 ug/dL01/20/2025 12:45 AM [facility] LABORATORYIRON SATURATION3(L)20 - 50 % YPTVUAMIFV68/17/2025 12:45 AM [facility] LABORATORYSpecimen (Source)Anatomical Location / LateralityCollection Method / VolumeCollection TimeReceived TimeBloodVenous blood / Unknown Venipuncture / Cuyfzkj5101/19/2025 1:16 PM EST01/19/2025 1:19 PM EST Narrative Authorizing ProviderResult TypeResult StatusSilas OCONNOR BLOOD ORDERABLESFinal ResultPerforming OrganizationAddressCity/State/ZIP CodePhone Number [facility] [address] [place] [address], [place] [phone] * Ferritin (01/19/2025 1:16 PM EST)ComponentValueRef RangeTest MethodAnalysis TimePerformed AtPathologist SrjzbcedqQSNKUPIH6308 - 336 ng/mL01/20/2025 1:00 AM [facility] LABORATORYSpecimen (Source)Anatomical Location / LateralityCollection Method / VolumeCollection TimeReceived TimeBloodVenous blood / UnknownVenipuncture / Spbdmlj4901/19/2025 1:16 PM EST01/19/2025 1:19 PM EST Narrative Authorizing ProviderResult TypeResult StatusSilas OCONNOR BLOOD ORDERABLESFinal ResultPerforming OrganizationAddressCity/State/ZIP CodePhone Number [facility] [address] [place] [address], * Liver panel (01/19/2025 1:16 PM EST)ComponentValueRef RangeTest MethodAnalysis TimePerformed AtPathologist SignatureTOTAL PROTEIN7.16.0 - 8.0 g/dL01/19/2025 1:47 PM ESTPROUCLA MEDICAL CENTER, SANTA MONICAALBUMIN3.43.2 - 5.3 g/dL 01/19/2025 1:47 PM ESTPROUCLA MEDICAL CENTER, SANTA MONICABILIRUBIN,TOTAL1.00.3 - 1.2 mg/dL01/19/2025 1:47 PM ESTUNIVERSITY HOS[facility]ALS [facility] MED[facility] CENTERALKALINE MUMDOGSWWQG0039 - 130 U/L103/21/2024 1:47 PM ESTUNIVERSITY HOSPITALS LAKE WEST MEDICAL CENTERAST26<=41 U/L103/21/2024 1:47 PM [facility] ALT34<=40 U/L103/21/2024 1:47 PM [facility] BILIRUBIN,DIRECT0.4<=0.4 mg/dL01/19/2025 1:47 PM [facility]ENTERpecimen (Source)Anatomical Location / LateralityCollection Method / VolumeCollection TimeReceived TimeBloodVenous blood / UnknownVenipuncture / Fqndlln9601/19/2025 1:16 PM EST01/19/2025 1:19 PM EST Narrative Authorizing ProviderResult TypeResult StatusPatricvicky Dominguez MDLAB BLOOD ORDERABLESFinal ResultPerforming OrganizationAddressCity/State/ZIP CodePhone Number [facility] [address] [place] [address], * (ABNORMAL) Basic Metabolic Panel (01/19/2025 1:16 PM EST) Only the most recent of2 resultswithin the time period is included. ComponentValueRef RangeTest MethodAnalysis TimePerformed AtPathologist Signature LJREWL421(L)134 - 146 mmol/L103/21/2024 1:47 PM ESTPROUCLA MEDICAL CENTER, SANTA MONICAPOTASSIUM3.1(L)3.5 - 5.0 mmol/L103/21/2024 1:47 PM ESTUNIVERSITY HOSPITALS LAKE WEST MEDICAL CENTERCHLORIDE95(L)98 - 109 mmol/L103/21/2024 1:47 PM ESTUNIVERSITY HOSPITALS LAKE WEST MEDICAL CENTERCARBON ZHHTKRH7053 - 32 mmol/L103/21/2024 1:47 PM EST [facility] CENTERANION CTL291 - 15 mmol/L103/21/2024 1:47 PM ESTUNIVERSITY HOSPITALS LAKE WEST MEDICAL CENTERBLOOD UREA ULTKPFTS752 - 23 mg/dL 01/19/2025 1:47 PM ESTUNIVERSITY HOSPITALS LAKE WEST MEDICAL CENTERCREATININE1.080.70 - 1.20 mg/dL01/19/2025 1:47 PM [facility]OSPITALComment: METHOD TRACEABLE TO IDMS CSXTKMHQIOQNJYF866(H)65 - 99 mg/dL01/19/2025 1:47 PM [facility] HOSPITALCALCIUM8.2(L)8.5 - 10.5 mg/dL01/19/2025 1:47 PM [facility]ORIAL HOSPITALEGFR Non-Race Cpxkgymvo20>=60 ml/min/1.73sq.m103/21/2024 1:47 PM [facility] HOSPITALComment: eGFR not reported due to non-numeric value for Creatinine. Reported eGFR is based on the CKD-EPI 2020 equation that does not use a race coefficient. Specimen (Source)Anatomical Location / LateralityCollection Method / Volume Collection TimeReceived TimeBloodVenous blood / UnknownVenipuncture / Unknown 01/19/2025 1:16 PM EST01/19/2025 1:19 PM EST Narrative Authorizing ProviderResult TypeResult StatusPatricvicky Dominguez MDLAB BLOOD ORDERABLESFinal ResultPerforming OrganizationAddressCity/State/ZIP CodePhone Number [facility] [address] [place] [address], * ED NIHSS And Thrombolytic MD Screening [...] * ECG 12 lead (01/19/2025 1:04 PM EST) Only the most recent of2 resultswithin the time period is included. Specimen (Source)Anatomical Location / LateralityCollection Method / Volume Collection TimeReceived Time01/19/2025 1:04 PM EST Narrative Authorizing ProviderResult TypeResult StatusJulian Dominguez MDECG ORDERABLES Final ResultPerforming OrganizationAddressCity/State/ZIP CodePhone Number [facility] * CT abdomen and pelvis with contrast [...] 10:23 PM Authorizing ProviderResult TypeResult StatusMaxmarivel Cabrera [facility] CT ORDERABLESFinal Result * Nursing fecal occult blood (OBN) (01/17/2025 7:45 PM EST)ComponentValueRef RangeTest MethodAnalysis TimePerformed AtPathologist SignaturePOC Fecal Occult BloodNegativeNegative, Invalid Rbxdjs7401/18/2025 4:35 AM ESTPROMEDICA COALINGA REGIONAL MEDICAL CENTERpecimen (Source)Anatomical Location / LateralityCollection Method / VolumeCollection TimeReceived TimeStoolFeces / Lpfdhuk9901/17/2025 7:45 PM EST01/18/2025 4:33 AM EST Narrative Authorizing ProviderResult TypeResult StatusMaxmarivel Cabrera DOPOINT OF CARE TEST ORDERABLESFinal ResultPerforming OrganizationAddressCity/State/ZIP Code Phone Number [facility] [address] [place] [address], [place] from Last 3 Months Insurance Advance Directives * Full Code (Latest Code Status on File) Date ActivatedDate XbvdthbklnuLkkxovdl16/18/2025 5:14 AM01/22/2025 8:18 PM * Full Code Date ActivatedDate PpeegjmpkzkCisoublw85/16/2025 11:51 PM01/21/2025 4:49 AM Care Teams Team MemberRelationshipSpecialtyStart DateEnd Date Tina Herrera APRN-WAI [address] [place] [address] PCP - GeneralFamily Vcuncpmu83/13/24
--- OUTSIDE RECORDS SUMMARY | 2025-01-27 12:45 | XMS_ITS | Clinical Summary ---
Author Organization [facility] Address [address] [place] [address] Care Team Providers Care Supervisor Travel Information Center Name Role Phone Unallocated, Noms Provider Primary Care Provi gianna Allergies No known active allergies Medications MedicationSigDispense QuantityRefillsLast FilledStart DateEnd DateStatus pancrelipase, Erg-Zqpb-Brmr, (Creon) 8157-9964 units capsule Take by mouthActive sertraline (Zoloft) 50 MG tablet TAKE 1/2 (ONE-HALF) OF A TABLET BY MOUTH DAILY for the first week, then increase to ONE TABLET BY MOUTH DAILY04/10/2023ctive traZODone (Desyrel) 50 MG tablet Take 50 mg by mouth as needed at bedtimeActive amLODIPine-benazepril (Lotrel) 5-40 MG capsule TAKE 1 CAPSULE BY MOUTH DAILY CFIKVLFQ48/05/2024ctive GNP Vitamin B-1 100 MG tablet Take 100 mg by mouth Daily09/06/2023ctive hydroCHLOROthiazide (HYDRODiuril) 12.5 MG tablet Take 12.5 mg by mouth Daily09/01/2023ctive pantoprazole (ProtoNix) 20 MG EC tablet Take 20 mg by mouth Daily08/11/2023ctive Active Problems No known active problems Family History Medical HistoryRelationNameCommentsCancerFatherHypertensionFatherCancerFather's BrotherHypertensionMotherRelationNameStatusCommentsFatherFather's BrotherMother Social History Tobacco UseTypesPacks/DayYears UsedDateSmoking Tobacco: NeverSmokeless Tobacco: NeverAlcohol UseStandard Drinks/WeekCommentsYes6 (1 standard drink = 0.6 oz pure alcohol)Sex and Gender InformationValueDate RecordedSex Assigned at BirthNot on fileLegal SvoAody5805/18/2022 6:53 PM EDTGender IdentityNot on fileSexual OrientationNot on file Last Filed Vital Signs Vital SignReadingTime TakenCommentsBlood Oqehoftz873/8410/17/2023 3:39 PM EDT Kesof464610/17/2023 3:39 PM LGVMlzzfarjhqj74.8 ??C (98.3 ??F)10/17/2023 3:39 PM EDTRespiratory Rate--Oxygen Ksycocbxla67%04/20/2023 2:34 PM ESTInhaled Oxygen Concentration--Pttjqx43.7 kg (215 lb 6.4 oz)04/20/2023 2:34 PM MEAWpazsr735 cm (6' 2 )04/20/2023 2:34 PM ESTBody Mass Index27.66004/20/2023 2:34 PM EST Plan of Treatment Health MaintenanceDue DateLast DoneCommentsCT Qirubywkuikb71/08/1979Colonoscopy 1978Colorectal Cancer Zkjzezkrz14/08/1979FIT-DNA1978FIT1978 FOBT1978 7105Vzqhsgmnspbyu02/08/1979COVID-19 Vaccine ( season) 502/04/2021, 09/08/2020, 08/12/2020Influenza Vaccine (#1)2024 04/01/2019Pneumococcal Vaccine: Pediatrics (0 to 5 Years) and At-Risk Patients (6 to 64 Years)Aged OutNo longer eligible based on patient's age to complete this topic Insurance Care Teams Team MemberRelationshipSpecialtyStart DateEnd Date Unallocated, Noms Provider, [address] [place] [address] [facility] - [facility]04/20/23
== END 2025-01-27 12:39 | disposition home or self-care (01) ==
LOC: US 12:41
PROVIDERS: PCP Nurse Practitioner Family; Visit Provider Nurse Practitioner Family
DX: R22.31 Localized swelling, mass and lump, right upper limb (principal)
CPT/HCPCS: 93971